=== PATIENT | female | born 1945 | race Hispanic/Latino ===

== ENCOUNTER 2018-01-20 21:29 | Emergency (ER) | payer OTHER, SELFPAY ==
[2018-01-20 21:36] VITALS: BP 149/85; PULSE 109; RESP 18; TEMP 36.7; O2SAT 95; BMI 39.0
--- NOTE | 2018-01-20 21:41 | PC.NURSE ---
She had hemorrhoidectomy on the 5th of this month.She c/o pain and drainage at site.pain not relieved by her po oxycodone she was scipted.
--- NOTE | 2018-01-20 22:11 | DI.CT.S_ITS ---
PROCEDURE: CT ABDOMEN PELVIS W CON INDICATIONS: hemorroidectomy 6 days ago, pus and pain in lower abd/rectal area TECHNIQUE: After the administration of intravenous contrast, 5 mm thick sections acquired from the diaphragm to the symphysis. 5 mm coronal and sagittal reformats were acquired. For radiation dose reduction, the following was used: automated exposure control, adjustment of mA and/or kV according to patient size. COMPARISON: [facility], CT, ABDOMEN/PELVIS WITH CONTRAST, 03/02/2016, 1:17. FINDINGS: Image quality: Excellent. ABDOMEN: Lung bases: Dependent atelectasis are noted in posterior aspect of bilateral lung bases. Heart size is normal. Solid organs: Liver is normal in size. Ill-defined 1.5 cm hypodense area involving superior aspect of left hepatic lobe near the dome of liver is seen. 1 cm well-circumscribed hypodense area involving more inferior aspect of right hepatic lobe is also noted. There is also a 7 mm hypodense area involving inferior aspect of posterior segment right hepatic lobe and is too small to characterize. Gallbladder is surgically absent. Biliary system is non dilated. Pancreas enhances normally. Spleen is normal in size and enhancement. No discrete right adrenal nodule. Nodular thickening of left adrenal gland is seen with suggestion of left adrenal nodules measures up to 1.2 cm in size. Kidneys demonstrate normal size and enhancement, without hydronephrosis. 1.7 cm left renal cyst is seen. Peritoneum and bowel: Bowel loops demonstrate normal wall thickness and caliber. No free fluid is seen. Extraluminal air is within mesenteric fat in the lower pelvis extending along the sigmoid colon and pre-sacral space with air extending to the mesenteric fat in lower abdomen. Nodes and vessels: No retroperitoneal or mesenteric adenopathy by size criteria. Aorta and inferior vena cava are normal in size. Miscellaneous: Small periumbilical hernia containing fat only is seen. PELVIS: Genitourinary: Bladder wall thickness is normal. Miscellaneous: No inguinal hernias or adenopathy. Bones: No suspicious bony lesions. No vertebral body compression fractures. IMPRESSION: 1. Extraperitoneal fat within lower abdomen and pelvis as described above, which may represent iatrogenic air from recent pelvic surgery. Perforated bowel loop cannot be entirely excluded. No peritoneal free fluid or abscess collection is noted. No abnormal bowel wall thickening. 2. 1.5 cm ill-defined hypodense area involving superior aspect of left hepatic lobe near dome of liver and is not consistent with a simple cyst. This could represent hemangioma. Dedicated MRI or CT of the abdomen using hepatic protocol can be done for further evaluation of this region. Additional small areas of hypodensity in right and left hepatic lobes and likely represent hepatic cysts. 3. Nodular thickening of left adrenal gland, which may represent adrenal adenoma. 4. Bibasilar dependent atelectasis. No significant discrepancies from overnight report. Dictated by: Jorge Lemon M.D. on 01/21/2018 at 8:11 Approved by: Jorge Lemon M.D. on 01/21/2018 at 8:20
--- NOTE | 2018-01-20 22:14 | ED_ITS ---
HPI - Abdominal Pain General Chief Complaint: Skin/Abscess/Foreign Body Stated Complaint: PAIN, POSSIBLE INFECTION POST SURGERY Time Seen by Provider: 01/20/18 21:50 Source: patient and family Mode of arrival: ambulatory Limitations: no limitations History of Present Illness HPI narrative: This is a 72-year-old female who comes to the emergency department with complaint of increasing rectal pain as well as lower abdominal pain. Patient had a hemorrhoidectomy on the 14 of January at [place]. She was referred there by Dr. Franco our general surgeon. Patient states she has been having sort of brownish purulent discharge. She states she has had increasing pain rectally. She has had nausea but no vomiting. Her abdominal pain just started in the last couple days. She has been taking oxycodone orally for pain and it has not been controlling her pain in the last couple days. She has been having regular stools which have initially been small pebble like stools that a long thin yellowish stool followed by very liquidy yellow stool today. Patient has not had any new urinary symptoms. She had a temperature of a 100? F at home. She has been attempting to keep the area clean and applying ?pre veil?, she has been using a stool softener. Related Data Home Medications Medication Instructions Recorded Confirmed citalopram [Celexa] 40 mg PO Q DAY #0 03/01/16 felodipine 1 tab PO Q DAY #0 03/01/16 gabapentin [Neurontin] 900 mg PO TID #0 03/01/16 hydrochlorothiazide 25 mg PO Q DAY #0 03/01/16 insulin NPH and regular human 30 units SQ BIDAC #0 03/01/16 [Humulin 70/30 U-100 Insulin] lisinopril 20 mg PO Q DAY #0 03/01/16 pravastatin [Pravachol] 20 mg PO HS #0 03/01/16 VITAMIN D (Vitamin D3) 5,000 u PO QDAY #0 03/02/16 aripiprazole [Abilify] 5 mg PO HS #0 03/02/16 Previous Rx's Medication Instructions Recorded cephalexin 500 mg PO TID #12 cap 03/03/16 oxycodone 2.5 - 5 mg PO Q4HP PRN #20 tab 03/03/16 oxycodone 15 mg PO Q4-6H PRN #10 tab 01/21/18 Allergies Allergy/AdvReac Type Severity Reaction Status Date / Time diclofenac [DICLOFENAC] Allergy Severe HIVES & Verified 01/20/18 21:36 ALMOST TO THE POINT OF ANAPHYLACTIC SHOCK. morphine [MORPHINE] Allergy Severe CARDIAC Verified 01/20/18 21:36 ARREST PER PT acetaminophen [From TYLENOL] Allergy Unknown UNKNOWN Verified 01/20/18 21:36 REACTION BUT KNOWS SHE CANNOT TAKE ibuprofen [IBUPROFEN] Allergy Unknown HIVES Verified 01/20/18 21:36 misoprostol [MISOPROSTOL] Allergy Unknown UNKNOWN Verified 01/20/18 21:36 polyethylene glycol Allergy Unknown UNKNOWN Verified 01/20/18 21:36 [POLYETHYLENE GLYCOL] potassium chloride Allergy Unknown UNKNOWN Verified 01/20/18 21:36 [POTASSIUM CHLORIDE] sodium bicarbonate Allergy Unknown UNKNOWN Verified 01/20/18 21:36 [SODIUM BICARBONATE] sodium sulfate Allergy Unknown UNKNOWN Verified 01/20/18 21:36 [SODIUM SULFATE] Review of Systems Review of Systems All systems reviewed & are unremarkable except as noted in HPI and below Constitutional Reports fever(s) (One hundred F) Cardiovascular Denies chest pain, Denies irregular heart rhythm, Denies lightheadedness, Denies palpitations, Denies dyspnea, Denies dyspnea on exertion and Denies orthopnea Respiratory Denies cough, Denies dyspnea, Denies dyspnea on exertion and Denies wheezing Gastrointestinal Gastrointestinal: Reports abdominal pain, Denies melena, Denies hematochezia, Reports change in bowel habits, Reports diarrhea, Denies nausea and Denies vomiting Genitourinary Denies hematuria, Denies flank pain, Denies urinary incontinence and Denies urinary urgency Endocrine Denies palpitations Allergic/Immunologic Denies wheezing PFSH Medical History Dyslipidemia (Acute) H/O: hysterectomy (Acute) Hypertension (Acute) Insulin dependent diabetes mellitus (Acute) Surgical History H/O bilateral salpingo-oophorectomy (Acute) H/O hemorrhoidectomy (Acute) Social History Smoking Status: Never smoker Exam Narrative Exam Narrative: GENERAL: Alert and oriented x three, obese, well-appearing female in mild distress. HEENT: Head normocephalic, atraumatic, EOMI, pupils reactive, face symmetric, moist mucous membranes NECK: Supple, full range of motion CARDIOVASCULAR: Regular rate and rhythm without murmurs, rubs or gallops. RESPIRATORY: Breath sounds equal bilaterally, no wheezes rales or rhonchi. ABDOMEN: Soft, mild to moderate suprapubic as well as periumbilical tenderness. Normoactive bowel sounds all 4 quadrants. No guarding or rebound, rigidity, no mass. On rectal examination. Patient has tenderness even with movement or spreading of the buttocks at the gluteal crease. Patient has amount of light brownish discharge. There is no clear signs of abscess or fluctuant fluid collection adjacent to or at the rectum. Patient's rectum does appears to be healing with what appears to be a recent surgical site. : No CVA tenderness EXTREMITIES: Normal range of motion, no clubbing or edema. Neurovascularly intact NEUROLOGICAL: Cranial nerves II through XII grossly intact. Moving all extremities SKIN: Warm, dry, no petechiae, no rashes or lesions. Initial Vital Signs Initial Vital Signs: Vital Signs Temperature 98.0 F 01/20/18 21:36 Pulse Rate 109 H 01/20/18 21:36 Respiratory Rate 18 01/20/18 21:36 Blood Pressure 149/85 H 01/20/18 21:36 Pulse Oximetry 95 01/20/18 21:36 Course Orders Ordered: ED Orders 01/20/18 22:11 CT abdomen pelvis w con Stat 01/20/18 22:33 Blood Culture Stat 01/20/18 22:35 Complete Blood Count AUTO DIFF Stat Comprehensive Metabolic Panel Stat Lactate (Lactic Acid) Stat Lipase Stat Partial Thromboplastin Time Stat Prothrombin Time INR Stat Discontinued Medications Sodium Chloride (Normal Saline 0.9%) 1,000 mls @ 150 mls/hr IV CONT KEVIN Last Infusion: 01/21/18 00:54 Dose: 0 mls/hr Admin: 01/20/18 22:40 Dose: 150 mls/hr Lidocaine (Lidocaine Oint) 1 applic TOP NOW ONE Stop: 01/20/18 22:14 Last Admin: 01/20/18 22:46 Dose: 1 applic Oxycodone HCl (Percolone) 15 mg PO NOW ONE Stop: 01/20/18 22:13 Last Admin: 01/20/18 22:40 Dose: 15 mg Reevaluation(s) Reevaluation #1: Discussed all lab work, CT findings and recommendations from general surgery. Patient on repeat evaluation is still fairly comfortable. The slight increase in her oxycodone from 10-50 mg on an topical lidocaine was very helpful to the patient. We discussed she does have air on her CT which is not necessarily normal finding with this particular surgery and which was discussed with her surgical team. They would like to see her today in the office and her and her are agreeable to this. They will call 1st thing in morning I to set up an exact time. They are also given his disc as well as a copy of lab work. We discussed Um that because there is air on her CT scan this is somewhat concerning and does need close follow-up. No signs on physical exam of acute abdomen there is some possibility that this could just be postsurgical. She does not appear to have any sepsis although blood cultures were obtained. Time: 01:05 Consultations Consultation #1: Dr. Aguillon from [facility] surgery. Discussed findings along with free air on CT. Discussed that this not typically an expected finding. He asked that we have images sent to them or patient with a disc. We discussed patient's lab work which does show a slight elevation in white count as well as slight left shift. Patient does not have an acute abdomen on exam. She is much more comfortable now after and slight increase in her medication as well as topical lidocaine. Plan for follow up tomorrow in the office with Dr. Molina for closer observation. Patient is to call 1st thing in the morning. We did discuss the patient should be started on antibiotics Um they asked that we hold this time to see her tomorrow in the make the final decision. Time: 00:48 Vital Signs - 8 hr 01/20/18 21:36 01/21/18 00:55 Temperature 98.0 F 98.5 F Pulse Rate 109 H 96 H Respiratory Rate 18 Blood Pressure 149/85 H 124/62 Pulse Oximetry 95 MDM - Abdominal Pain Lab Data Attestation: I reviewed the patient's lab results. Result diagrams: 01/20/18 22:35 01/20/18 22:35 Lab Results 01/20/18 01/20/18 01/20/18 Range/Units 22:35 22:35 22:35 WBC 13.1 H (4.5-11.0) X10^3/uL RBC 4.28 (4.0-5.2) X10^6/uL Hgb 12.6 (12.0-16.0) g/dL Hct 38.0 (36-46) % MCV 88.7 (80-100) fL MCH 29.4 (26-34) PG MCHC 33.2 (30-36) % RDW 15.2 H (11.6-14.8) % Plt Count 348 (150-400) X10^3/uL Neut % (Auto) 78.1 H (50-75) % Lymph % (Auto) 11.2 L (25-40) % [place] % (Auto) 8.9 (3-14) % Eos % (Auto) 1.4 L (2-4) % Baso % (Auto) 0.4 (0-2) % Neut # (Auto) 10162 H (0135-5871) /uL PT 11.3 (10.1-12.7) SECONDS INR 1.0 (0.9-1.3) APTT 24 L (26.4-36.2) SECONDS Sodium 138 (137-145) mmol/L Potassium 3.9 (3.4-5.1) mmol/L Chloride 97 L (98-107) mmol/L Carbon Dioxide 35 H (22-32) mmol/L BUN 22 H (7-17) mg/dL Creatinine 0.80 (0.52-1.04) mg/dL Estimated GFR > 60.0 (>60) mL/min BUN/Creatinine Ratio 27.5 H (6-22) Glucose 78 L (80-110) mg/dL Lactate (0.7-2.1) mmol/L Calcium 9.1 (8.4-10.2) mg/dL Total Bilirubin 0.2 (0.2-1.3) mg/dL AST 21 (14-36) IU/L ALT 32 (9-52) IU/L Alkaline Phosphatase 68 (38-126) U/L Total Protein 6.8 (6.3-8.2) g/dL Albumin 3.7 (3.5-5.0) g/dL Globulin 3.1 (1.7-4.1) g/dL Albumin/Globulin Ratio 1.2 (1.0-2.8) Lipase 24 (23-300) U/L //18 Range/Units 22:35 WBC (4.5-11.0) X10^3/uL RBC (4.0-5.2) X10^6/uL Hgb (12.0-16.0) g/dL Hct (36-46) % MCV (80-100) fL MCH (26-34) PG MCHC (30-36) % RDW (11.6-14.8) % Plt Count (150-400) X10^3/uL Neut % (Auto) (50-75) % Lymph % (Auto) (25-40) % [place] % (Auto) (3-14) % Eos % (Auto) (2-4) % Baso % (Auto) (0-2) % Neut # (Auto) (4586-7383) /uL PT (10.1-12.7) SECONDS INR (0.9-1.3) APTT (26.4-36.2) SECONDS Sodium (137-145) mmol/L Potassium (3.4-5.1) mmol/L Chloride (98-107) mmol/L Carbon Dioxide (22-32) mmol/L BUN (7-17) mg/dL Creatinine (0.52-1.04) mg/dL Estimated GFR (>60) mL/min BUN/Creatinine Ratio (6-22) Glucose (80-110) mg/dL Lactate 1.0 (0.7-2.1) mmol/L Calcium (8.4-10.2) mg/dL Total Bilirubin (0.2-1.3) mg/dL AST (14-36) IU/L ALT (9-52) IU/L Alkaline Phosphatase (38-126) U/L Total Protein (6.3-8.2) g/dL Albumin (3.5-5.0) g/dL Globulin (1.7-4.1) g/dL Albumin/Globulin Ratio (1.0-2.8) Lipase (23-300) U/L Imaging Data CT scan - abdomen: Radiologist's impression: 11.6 mm low attenuation structures within left lobe liver which is going to require additional workup to exclude an underlying neoplasm. There are multiple cysts within the liver. Patient demonstrates air in the extraperitoneal fat in the pelvis and extending into the marriage mesenteric fat most likely from recent surgery but could not exclude the possibility of a leak there are however no fluid collections or abscess. Discharge Plan Departure Patient Disposition: Home Clinical Impression: Abdominal pain, Anal or rectal pain, Hepatic lesion Discharge Date/Time: 01/21/18 01:20 Interventions: ED Discharge Assessment Last Done: 01/21/18 00:55 Activity Restrictions/Additional Instructions: Call your surgeon's office 1st thing in the morning to set up follow-up today. Let the office know that Dr. Lemons would like he seen today. Take disc with your images with you. Her imaging does show air in the abdomen which requires further follow-up. There is also a structure in the left lobe of the liver which they will wish to follow up. You may increase your oxycodone to 15 mg total for each dose on your regular schedule. You may use topical lidocaine to the rectal area after bowel movements. Return to the emergency department for temperature greater than 100.4 F, increasing abdominal pain, vomiting, black or bloody stools or other new or concerning symptoms. Prescriptions: New oxycodone 15 mg tablet 15 mg PO Q4-6H PRN (Reason: pain) Qty: 10 RF: 0 No Action citalopram [Celexa] 40 MG tablet 40 mg PO Q DAY Qty: 0 RF: 0 felodipine 10 MG tablet extended release 24 hr 1 tab PO Q DAY Qty: 0 RF: 0 gabapentin [Neurontin] 300 MG capsule 900 mg PO TID Qty: 0 RF: 0 insulin NPH and regular human [Humulin 70/30 U-100 Insulin] 100 UNIT/1 ML suspension 30 units SQ BIDAC Qty: 0 RF: 0 lisinopril 20 MG tablet 20 mg PO Q DAY Qty: 0 RF: 0 hydrochlorothiazide 25 MG tablet 25 mg PO Q DAY Qty: 0 RF: 0 pravastatin [Pravachol] 20 MG tablet 20 mg PO HS Qty: 0 RF: 0 aripiprazole [Abilify] 5 MG tablet 5 mg PO HS Qty: 0 RF: 0 VITAMIN D (Vitamin D3) 5,000 u PO QDAY Qty: 0 RF: 0 cephalexin 250 MG capsule 500 mg PO TID Qty: 12 RF: 0 oxycodone 5 MG tablet 2.5 - 5 mg PO Q4HP PRNQty: 20 RF: 0 Referrals: Williams Bhatt MD [Non-Staff] - Debbie Napoles DO [Primary Care Provider] -
[2018-01-20] MEDS: SODIUM CHLORIDE 0.9% 1,000 ML 150 ML IV (22:40)
[2018-01-20] MEDS: OXYCODONE IR 5 MG TABLET 15 MG PO (22:40)
[2018-01-20] MEDS: LIDOCAINE 5% OINT 35 GM 1 APPLIC TOP (22:46)
[2018-01-20 22:52] LABS: Prothrombin Time 11.3 SECONDS (10.1-12.7)
[2018-01-20 22:54] LABS: PTT Partial Thromboplastin Tim 24 SECONDS (26.4-36.2)
[2018-01-20 22:56] LABS: Alanine Aminotransferase 32 IU/L (9-52); Albumin 3.7 g/dL (3.5-5.0); Albumin Globulin Ratio 1.2 (1.0-2.8); Alkaline Phosphatase 68 U/L (38-126); Aspartate Aminotransferase 21 IU/L (14-36); BUN Creatinine Ratio 27.5 (6-22); Bilirubin Total 0.2 mg/dL (0.2-1.3); Blood Urea Nitrogen 22 mg/dL (7-17); Calcium 9.1 mg/dL (8.4-10.2); Carbon Dioxide 35 mmol/L (22-32); Chloride 97 mmol/L (98-107); Estimated Glomerular Filt Rate > 60.0 mL/min (>60); Globulin 3.1 g/dL (1.7-4.1); Glucose 78 mg/dL (80-110); HEMOLYSIS < 15 (0-50); Lipase 24 U/L (23-300); Potassium 3.9 mmol/L (3.4-5.1); Sodium 138 mmol/L (137-145); Total Protein 6.8 g/dL (6.3-8.2)
[2018-01-20 22:57] LABS: Add Manual Diff / Slide Review NO; Basophils Percent Auto 0.4 % (0-2); Eosinophils Percent Auto 1.4 % (2-4); Hemoglobin 12.6 g/dL (12.0-16.0); Lymphocytes Percent Auto 11.2 % (25-40); Mean Corpuscular HGB Conc 33.2 % (30-36); Mean Corpuscular Hemoglobin 29.4 PG (26-34); Mean Corpuscular Volume 88.7 fL (80-100); Monocytes Percent Auto 8.9 % (3-14); Neutrophils Absolute Auto 10200 /uL (3000-5900); Neutrophils Percent Auto 78.1 % (50-75); Platelet Count 348 X10^3/uL (150-400); Red Blood Cell Count 4.28 X10^6/uL (4.0-5.2); Red Cell Distribution Width 15.2 % (11.6-14.8); White Blood Cell Count 13.1 X10^3/uL (4.5-11.0)
[2018-01-21 00:55] VITALS: BP 124/62; PULSE 96; TEMP 36.9
== END 2018-01-21 01:20 | disposition home or self-care (01) ==
LOC: ED 21:39 → AC 23:01 → ED 01-21 01:03
PROVIDERS: Emergency Provider Emergency Medicine; Family Provider Family Medicine; PCP Family Medicine
DX: K62.89 Other specified diseases of anus and rectum (principal); R10.9 Unspecified abdominal pain; K76.9 Liver disease, unspecified
CPT/HCPCS: 36415; 36591; 74177; 80053; 83605; 83690; 85025; 85610; 85730; 87040; 96360; 96361; 99283; 99285; Q9967

== ENCOUNTER 2018-03-11 11:05 | Emergency (ER) | payer OTHER, SELFPAY ==
[2018-03-11 11:11] VITALS: BP 112/65; PULSE 97; RESP 20; TEMP 36.1; O2SAT 96; BMI 39.0
[2018-03-11 12:00] VITALS: BP 115/58; PULSE 92; O2SAT 100
--- NOTE | 2018-03-11 12:33 | DI.CT.S_ITS ---
PROCEDURE: CT ABDOMEN PELVIS WO CON INDICATIONS: left lower quadrant pain TECHNIQUE: Noncontrast 5 mm thick sections acquired from the diaphragms to the symphysis. 5 mm coronal and sagittal reformats were then performed. For radiation dose reduction, the following was used: automated exposure control, adjustment of mA and/or kV according to patient size. COMPARISON: [facility], CT, ABDOMEN/PELVIS WITH CONTRAST, 03/02/2016, 1:17. [facility], CT, CT ABDOMEN PELVIS W CON, 01/20/2018, 22:55. FINDINGS: Image quality: Somewhat degraded by very large body habitus. No intravenous or oral contrast. ABDOMEN: Lung bases: Lung bases are clear. Heart size is normal. Solid organs: Liver is normal in size at the superior margin of the left hepatic lobe anteriorly there is a hypodensity that is subtle, but was present in February 2016 and on contrast enhanced study from 01/20/18. The appearance is stable over time and presumably a hemangioma. Several other hepatic hypodensities are stable over time, measuring less than 1 cm, and consistent with hepatic cysts or small hemangiomas. Gallbladder is surgically absent. Pancreas is normal in contours. Spleen is normal in size. No adrenal nodules. Kidneys are normal in size, without hydronephrosis or nephrolithiasis. Peritoneum and bowel: Unenhanced bowel loops demonstrate normal wall thickness and caliber. No free fluid or air. Nodes and vessels: No retroperitoneal or mesenteric adenopathy by size criteria. Aorta and inferior vena cava are normal in caliber. Miscellaneous: No ventral hernias. PELVIS: Genitourinary: Bladder wall thickness is normal. Presumed prior hysterectomy. Miscellaneous: No inguinal hernias or adenopathy. Mild diverticulosis, no diverticulitis, normal appendix found right lower quadrant. Bones: No suspicious bony lesions. No vertebral body compression fractures. IMPRESSION: Several scattered hepatic hemangiomas, no source of left lower quadrant pain is found. Normal appendix seen, mild diverticulosis without acute diverticulitis. Dictated by: Ananth Barrientos M.D. on 03/11/2018 at 14:06 Approved by: Ananth Barrientos M.D. on 03/11/2018 at 14:10
[2018-03-11 12:42] LABS: Add Manual Diff / Slide Review NO; Basophils Percent Auto 0.6 % (0-2); Eosinophils Percent Auto 0.6 % (2-4); Hematocrit 41.1 % (36-46); Hemoglobin 13.9 g/dL (12.0-16.0); Lymphocytes Percent Auto 13.7 % (25-40); Mean Corpuscular HGB Conc 33.9 % (30-36); Mean Corpuscular Hemoglobin 30.4 PG (26-34); Mean Corpuscular Volume 89.5 fL (80-100); Monocytes Percent Auto 5.8 % (3-14); Neutrophils Absolute Auto 9700 /uL (3000-5900); Neutrophils Percent Auto 79.3 % (50-75); Platelet Count 348 X10^3/uL (150-400); Red Blood Cell Count 4.59 X10^6/uL (4.0-5.2); Red Cell Distribution Width 15.2 % (11.6-14.8); White Blood Cell Count 12.3 X10^3/uL (4.5-11.0)
--- NOTE | 2018-03-11 12:49 | ED_ITS ---
HPI - Fever <Zeke ThaoLUAN - Last Filed: 03/11/18 22:06> General Chief Complaint: Fever Stated Complaint: SENT BY MD FOR CT Time Seen by Provider: 03/11/18 12:09 Source: patient Mode of arrival: ambulatory Limitations: no limitations History of Present Illness HPI Narrative: 72-year-old female with history of hypertension and diabetes that is a nonsmoker here for complaint of having had tenderness to her lower abdomen bilaterally worse on the left over the past 6 weeks. She states that she had a a procedure for hemorrhoid removal approximately 6 weeks ago. She reports that afterwards was noticed that she had an infection to her rectal area. She was treated by the surgeon for rectal infection with antibiotics. She states that she completed those antibiotics the 1st week of February. she reports that she still is having discomfort. She also reports that she has seen some purulent drainage from her rectal area when she was wiping after a bowel movement. She states she was sent here by the surgeon for having CT to rule out complications. She denies any fevers. she reports that she has had an increased white count over the past several weeks. Positive p.o. intake. No nausea or vomiting. Related Data Home Medications Medication Instructions Recorded Confirmed felodipine 1 tab PO DAILY #0 03/01/16 03/11/18 hydrochlorothiazide 25 mg PO DAILY #0 03/01/16 03/11/18 pravastatin [Pravachol] 20 mg PO BEDTIME #0 03/01/16 03/11/18 Humalog KwikPen Insulin 1 dose SUBCUT DIRECTED 03/11/18 03/11/18 albuterol sulfate [ProAir HFA] 2 puff INHALATION Q4H PRN 03/11/18 03/11/18 docusate sodium 250 mg PO DAILY 03/11/18 03/11/18 duloxetine 60 mg PO DAILY 03/11/18 03/11/18 flash glucose sensor [FreeStyle 03/11/18 03/11/18 Alana 10 Day Sensor] insulin NPH isoph U-100 human 28 units SUBCUT BID 03/11/18 03/11/18 [Humulin N NPH Insulin KwikPen] insulin lispro See Label Instructions .ROUTE 03/11/18 03/11/18 .COMPLEX isosorbide mononitrate 120 mg PO QAM 03/11/18 03/11/18 lisinopril 20 mg PO BID 03/11/18 03/11/18 oxycodone 5 mg PO Q4HP PRN 03/11/18 03/11/18 Previous Rx's Medication Instructions Recorded oxycodone 15 mg PO Q4-6H PRN #10 tab 01/21/18 Allergies Allergy/AdvReac Type Severity Reaction Status Date / Time diclofenac [DICLOFENAC] Allergy Severe HIVES & Verified 01/20/18 21:36 ALMOST TO THE POINT OF ANAPHYLACTIC SHOCK. morphine [MORPHINE] Allergy Severe CARDIAC Verified 01/20/18 21:36 ARREST PER PT acetaminophen [From TYLENOL] Allergy Unknown UNKNOWN Verified 01/20/18 21:36 REACTION BUT KNOWS SHE CANNOT TAKE ibuprofen [IBUPROFEN] Allergy Unknown HIVES Verified 01/20/18 21:36 misoprostol [MISOPROSTOL] Allergy Unknown UNKNOWN Verified 01/20/18 21:36 polyethylene glycol Allergy Unknown UNKNOWN Verified 01/20/18 21:36 [POLYETHYLENE GLYCOL] potassium chloride Allergy Unknown UNKNOWN Verified 01/20/18 21:36 [POTASSIUM CHLORIDE] sodium bicarbonate Allergy Unknown UNKNOWN Verified 01/20/18 21:36 [SODIUM BICARBONATE] sodium sulfate Allergy Unknown UNKNOWN Verified 01/20/18 21:36 [SODIUM SULFATE] Review of Systems <LUAN Brooks - Last Filed: 03/11/18 22:06> Constitutional Denies chills, Denies fever(s), Denies lethargy and Denies weakness Eyes Denies change in vision, Denies eye discharge, Denies irritation and Denies loss of vision ENT Ears, Nose, Mouth, and Throat: Denies change in voice, Denies neck pain, Denies sore throat and Denies throat swelling Cardiovascular Denies chest pain, Denies irregular heart rhythm, Denies lightheadedness, Denies palpitations and Denies orthopnea Respiratory Denies wheezing Gastrointestinal Gastrointestinal: Reports abdominal pain Genitourinary Denies hematuria, Denies flank pain, Denies urinary incontinence and Denies urinary urgency Musculoskeletal Denies neck pain Integumentary/Breasts Denies pruritus, Denies erythema, Denies rash and Denies wounds Neurologic Denies confusion, Denies loss of vision and Denies weakness Psychiatric Denies anxiety, Denies confusion, Denies depression, Denies homicidal ideation and Denies suicidal ideation Endocrine Denies palpitations Hematologic/Lymphatic Denies easy bruising Allergic/Immunologic Denies urticaria, Denies throat swelling and Denies wheezing Exam <LUAN Brooks - Last Filed: 03/11/18 22:06> Initial Vital Signs Initial Vital Signs: Vital Signs Temperature 96.9 F L 03/11/18 11:11 Pulse Rate 97 H 03/11/18 11:11 Respiratory Rate 20 03/11/18 11:11 Blood Pressure 112/65 03/11/18 11:11 Pulse Oximetry 96 03/11/18 11:11 Const General: cooperative and well developed Nutritional Appearance: well nourished Orientation: alert, awake, oriented x3 and not confused [facility] Mouth: oral mucosae normal and moist mucous membranes Eyes Conjunctivae: conjunctivae normal Sclera: sclerae normal Pupils: PERRL EOM: EOM intact bilaterally Resp Effort & Inspection: normal respiratory effort, able to speak in complete sentences, no respiratory distress and no use of accessory muscles Auscultation: clear to auscultation bilaterally, no rales, no rhonchi and no wheezes Cardio Rate: regular rate Rhythm: regular rhythm Heart Sounds: no click, no gallops, no murmurs and no rubs Pulses: normal peripheral pulses GI Rectal Exam: visual inspection normal, normal sphincter tone and other ( Tenderness to the rectal and anal area) Other: Tenderness on palpation to the left lower quadrant and right lower quadrant. General: No CVA tenderness Skin General: no rashes or lesions noted, No jaundice and No petechiae Neuro General: alert, oriented x3, gait normal and no focal motor deficits Speech: speech normal <Rina Ferreira DO - Last Filed: 03/12/18 16:36> Initial Vital Signs Initial Vital Signs: Vital Signs Temperature 96.9 F L 03/11/18 11:11 Pulse Rate 97 H 03/11/18 11:11 Respiratory Rate 20 03/11/18 11:11 Blood Pressure 112/65 03/11/18 11:11 Pulse Oximetry 96 03/11/18 11:11 Course <LUAN Brooks - Last Filed: 03/11/18 22:06> Orders Ordered: Discontinued Medications Sodium Chloride (Normal Saline 0.9%) 1,000 mls @ 150 mls/hr IV CONT KEVIN Last Infusion: 03/11/18 15:28 Dose: 0 mls/hr Admin: 03/11/18 13:06 Dose: 150 mls/hr Vital Signs - 8 hr 03/11/18 15:29 Pulse Rate 90 Respiratory Rate 15 Blood Pressure 119/57 L Pulse Oximetry 97 <Rina Ferreira DO - Last Filed: 03/12/18 16:36> Orders Ordered: Discontinued Medications Sodium Chloride (Normal Saline 0.9%) 1,000 mls @ 150 mls/hr IV CONT KEVIN Last Infusion: 03/11/18 15:28 Dose: 0 mls/hr Admin: 03/11/18 13:06 Dose: 150 mls/hr Vital Signs - 8 hr 03/11/18 15:29 Pulse Rate 90 Respiratory Rate 15 Blood Pressure 119/57 L Pulse Oximetry 97 MDM - Fever <LUAN Brooks - Last Filed: 03/11/18 22:06> Lab Data Result diagrams: 03/11/18 11:30 03/11/18 11:30 Lab Results 03/11/18 03/11/18 03/11/18 Range/Units 11:30 11:30 11:30 WBC 12.3 H (4.5-11.0) X10^3/uL RBC 4.59 (4.0-5.2) X10^6/uL Hgb 13.9 (12.0-16.0) g/dL Hct 41.1 (36-46) % MCV 89.5 (80-100) fL MCH 30.4 (26-34) PG MCHC 33.9 (30-36) % RDW 15.2 H (11.6-14.8) % Plt Count 348 (150-400) X10^3/uL Neut % (Auto) 79.3 H (50-75) % Lymph % (Auto) 13.7 L (25-40) % Blair % (Auto) 5.8 (3-14) % Eos % (Auto) 0.6 L (2-4) % Baso % (Auto) 0.6 (0-2) % Neut # (Auto) 9700 H (8135-9411) /uL Sodium 143 (137-145) mmol/L Potassium 3.6 (3.4-5.1) mmol/L Chloride 98 (98-107) mmol/L Carbon Dioxide 31 (22-32) mmol/L BUN 27 H (7-17) mg/dL Creatinine 0.90 (0.52-1.04) mg/dL Estimated GFR > 60.0 (>60) mL/min BUN/Creatinine Ratio 30.0 H (6-22) Glucose 160 H (80-110) mg/dL Calcium 9.7 (8.4-10.2) mg/dL Total Bilirubin 0.4 (0.2-1.3) mg/dL AST 44 H (14-36) IU/L ALT 26 (9-52) IU/L Alkaline Phosphatase 85 (38-126) U/L Total Protein 7.6 (6.3-8.2) g/dL Albumin 4.2 (3.5-5.0) g/dL Globulin 3.4 (1.7-4.1) g/dL Albumin/Globulin Ratio 1.2 (1.0-2.8) Lipase 105 (23-300) U/L Procalcitonin < 0.05 (<0.5) ng/mL Point of Care Testing Glucose POC 145 Urine Dip Bedside Urine Glucose Negative Bedside Urine Bilirubin - Negative Bedside Urine Ketone - Negative Urine Specific [place] 1.020 Bedside Urine Occult Blood - Negative Bedside Urine pH 6.0 Bedside Urine Protein - Negative Bedside Urine Urobilinogen - Negative Bedside Urine Nitrite - Negative Bedside Urine Leukocytes - Negative Esterase Imaging Data CT scan - abdomen: Radiologist's impression: [place] [address] CT Scan Report Signed Patient: Emilee Lundberg CMR#: [id number] : 8Acct:[id number] Age/Sex: 72 / FDate of Service: 03/11/18 Loc: ED Accession Number: [id number] Procedure: CT abdomen pelvis wo con Ordering Provider: Zeke Thao PROCEDURE: CT ABDOMEN PELVIS WO CON INDICATIONS: left lower quadrant pain TECHNIQUE: Noncontrast 5 mm thick sections acquired from the diaphragms to the symphysis. 5 mm coronal and sagittal reformats were then performed. For radiation dose reduction, the following was used: automated exposure control, adjustment of mA and/or kV according to patient size. COMPARISON: [facility], CT, ABDOMEN/PELVIS WITH CONTRAST, 03/02/2016, 1: 17. [facility], CT, CT ABDOMEN PELVIS W CON, 01/20/2018, 22:55. FINDINGS: Image quality: Somewhat degraded by very large body habitus. No intravenous or oral contrast. ABDOMEN: Lung bases: Lung bases are clear. Heart size is normal. Solid organs: Liver is normal in size at the superior margin of the left hepatic lobe anteriorly there is a hypodensity that is subtle, but was present in February 2016 and on contrast enhanced study from 01/20/18. The appearance is stable over time and presumably a hemangioma. Several other hepatic hypodensities are stable over time, measuring less than 1 cm, and consistent with hepatic cysts or small hemangiomas. Gallbladder is surgically absent. Pancreas is normal in contours. Spleen is normal in size. No adrenal nodules. Kidneys are normal in size, without hydronephrosis or nephrolithiasis. Peritoneum and bowel: Unenhanced bowel loops demonstrate normal wall thickness and caliber. No free fluid or air. Nodes and vessels: No retroperitoneal or mesenteric adenopathy by size criteria. Aorta and inferior vena cava are normal in caliber. Miscellaneous: No ventral hernias. PELVIS: Genitourinary: Bladder wall thickness is normal. Presumed prior hysterectomy. Miscellaneous: No inguinal hernias or adenopathy. Mild diverticulosis, no diverticulitis, normal appendix found right lower quadrant. Bones: No suspicious bony lesions. No vertebral body compression fractures. IMPRESSION: Several scattered hepatic hemangiomas, no source of left lower quadrant pain is found. Normal appendix seen, mild diverticulosis without acute diverticulitis. Dictated by: Ananth Barrientos M.D. on 03/11/2018 at 14:06 Approved by: Ananth Barrientos M.D. on 03/11/2018 at 14:10 [facility] Narrative Medical decision making narrative: CBC shows elevated white count of 12.3 which has decreased over the past week from 13.9. She does have elevated neutrophils as well of 9700. CMP was obtained and shows glucose at 160 otherwise is unremarkable. Procalcitonin and lactate were obtained and were negative. Blood cultures were obtained and are pending. urinalysis was obtained was negative for urinary tract infection. Do not appreciate any infection on rectal exam. No emergent cause of her discomfort and her elevated white count is seen today in the emergency room. Discussed case with Dr. Narayan in her surgeon who will order MRI outpatient. And follow up with patient. For any worsening symptoms return to the emergency room. <Rina Ferreira, DO - Last Filed: 03/12/18 16:36> Lab Data Lab Results 03/11/18 03/11/18 03/11/18 Range/Units 11:30 11:30 11:30 WBC 12.3 H (4.5-11.0) X10^3/uL RBC 4.59 (4.0-5.2) X10^6/uL Hgb 13.9 (12.0-16.0) g/dL Hct 41.1 (36-46) % MCV 89.5 (80-100) fL MCH 30.4 (26-34) PG MCHC 33.9 (30-36) % RDW 15.2 H (11.6-14.8) % Plt Count 348 (150-400) X10^3/uL Neut % (Auto) 79.3 H (50-75) % Lymph % (Auto) 13.7 L (25-40) % Blair % (Auto) 5.8 (3-14) % Eos % (Auto) 0.6 L (2-4) % Baso % (Auto) 0.6 (0-2) % Neut # (Auto) 9700 H (6787-6810) /uL Sodium 143 (137-145) mmol/L Potassium 3.6 (3.4-5.1) mmol/L Chloride 98 (98-107) mmol/L Carbon Dioxide 31 (22-32) mmol/L BUN 27 H (7-17) mg/dL Creatinine 0.90 (0.52-1.04) mg/dL Estimated GFR > 60.0 (>60) mL/min BUN/Creatinine Ratio 30.0 H (6-22) Glucose 160 H (80-110) mg/dL Calcium 9.7 (8.4-10.2) mg/dL Total Bilirubin 0.4 (0.2-1.3) mg/dL AST 44 H (14-36) IU/L ALT 26 (9-52) IU/L Alkaline Phosphatase 85 (38-126) U/L Total Protein 7.6 (6.3-8.2) g/dL Albumin 4.2 (3.5-5.0) g/dL Globulin 3.4 (1.7-4.1) g/dL Albumin/Globulin Ratio 1.2 (1.0-2.8) Lipase 105 (23-300) U/L Procalcitonin < 0.05 (<0.5) ng/mL Point of Care Testing Glucose POC 145 Urine Dip Bedside Urine Glucose Negative Bedside Urine Bilirubin - Negative Bedside Urine Ketone - Negative Urine Specific [place] 1.020 Bedside Urine Occult Blood - Negative Bedside Urine pH 6.0 Bedside Urine Protein - Negative Bedside Urine Urobilinogen - Negative Bedside Urine Nitrite - Negative Bedside Urine Leukocytes - Negative Esterase Discharge Plan Departure Patient Disposition: Home Clinical Impression: Abdominal pain Discharge Date/Time: 03/11/18 15:29 Interventions: ED Discharge Assessment Last Done: 03/11/18 15:29 Instructions: DI for Abdominal Pain-Adult Activity Restrictions/Additional Instructions: CT of the abdomen was obtained was negative for any acute findings. Laboratory results today were unremarkable. No emergent cause of your discomfort or symptoms is seen today. Discussed case with Dr. Bhatt who will follow up with you. He will order a MRI for further evaluation. if any worsening symptoms return to the emergency room. Prescriptions: No Action felodipine 10 MG tablet extended release 24 hr 1 tab PO DAILY Qty: 0 RF: 0 hydrochlorothiazide 25 MG tablet 25 mg PO DAILY Qty: 0 RF: 0 pravastatin [Pravachol] 20 MG tablet 20 mg PO BEDTIME Qty: 0 RF: 0 flash glucose sensor [FreeStyle Alana 10 Day Sensor] kit RF: 0 insulin NPH isoph U-100 human [Humulin N NPH Insulin KwikPen] 100 unit/mL (3 mL) Insulin Pen 28 units subcut BID RF: 0 duloxetine 60 mg Capsule,Delayed Release(Dr/Ec) 60 mg PO DAILY RF: 0 Humalog KwikPen Insulin 1 dose subcut DIRECTED RF: 0 lisinopril 20 mg Tablet 20 mg PO BID RF: 0 isosorbide mononitrate 120 mg Tablet Extended Release 24 Hr 120 mg PO QAM RF: 0 insulin lispro 100 unit/mL Solution See Label Instructions .ROUTE .COMPLEX RF: 0 albuterol sulfate [ProAir HFA] 90 mcg/actuation Hfa Aerosol Inhaler 2 puff INHALATION Q4H PRN (Reason: Wheezing) RF: 0 docusate sodium 250 mg Capsule 250 mg PO DAILY RF: 0 oxycodone 5 MG tablet 5 mg PO Q4HP PRN (Reason: paib) RF: 0 oxycodone 15 mg tablet 15 mg PO Q4-6H PRN (Reason: pain) Qty: 10 RF: 0 Referrals: Debbie Napoles DO [Primary Care Provider] - <Rina Ferreira DO - Last Filed: 03/12/18 16:36> Cosign ED Attending Cosibanature Attestation: I was immediately available in the department for consultation. This documentation has been reviewed and I agree with assessment and plan. Supervised by Rina Ferreira DO
[2018-03-11 12:51] LABS: Alanine Aminotransferase 26 IU/L (9-52); Albumin 4.2 g/dL (3.5-5.0); Albumin Globulin Ratio 1.2 (1.0-2.8); Alkaline Phosphatase 85 U/L (38-126); Aspartate Aminotransferase 44 IU/L (14-36); Bilirubin Total 0.4 mg/dL (0.2-1.3); Blood Urea Nitrogen 27 mg/dL (7-17); Calcium 9.7 mg/dL (8.4-10.2); Carbon Dioxide 31 mmol/L (22-32); Chloride 98 mmol/L (98-107); Estimated Glomerular Filt Rate > 60.0 mL/min (>60); Globulin 3.4 g/dL (1.7-4.1); Glucose 160 mg/dL (80-110); HEMOLYSIS < 15 (0-50); Lipase 105 U/L (23-300); Potassium 3.6 mmol/L (3.4-5.1); Sodium 143 mmol/L (137-145); Total Protein 7.6 g/dL (6.3-8.2)
[2018-03-11 13:00] VITALS: BP 119/54; PULSE 89; O2SAT 94
[2018-03-11] MEDS: SODIUM CHLORIDE 0.9% 1,000 ML 150 ML IV (13:06)
[2018-03-11 14:00] VITALS: BP 115/55; PULSE 90; O2SAT 94
[2018-03-11 14:30] LABS: Procalcitonin < 0.05 ng/mL (<0.5)
[2018-03-11 15:29] VITALS: BP 119/57; PULSE 90; RESP 15; O2SAT 97
== END 2018-03-11 15:29 | disposition home or self-care (01) ==
PROVIDERS: Emergency Provider Nurse Practitioner Family; Family Provider Family Medicine; PCP Family Medicine
DX: R10.9 Unspecified abdominal pain (principal)
CPT/HCPCS: 36591; 74176; 74177; 80053; 81003; 82962; 83690; 84145; 85025; 96360; 96361; 99283; 99284; Q9967

== ENCOUNTER 2018-11-23 08:38 | Emergency (ER) | payer OTHER, SELFPAY ==
[2018-11-23 08:46] VITALS: BP 150/84; PULSE 102; RESP 22; TEMP 36.6; O2SAT 100; BMI 39.0
--- NOTE | 2018-11-23 09:12 | ED.FALL ---
HPI - Fall General Chief Complaint: Fall Stated Complaint: TOOK A FALL Time Seen by Provider: 11/23/18 08:57 Source: patient Mode of arrival: ambulatory Limitations: no limitations History of Present Illness HPI Narrative: Patient is 73-year-old female who presents after mechanical ground level fall this morning. He states she wears depends at night was quite soiled this morning she got up to the restroom when she also the restroom urine leaked onto the floor at which point she slipped and fell. She says she was flown backwards she landed mostly on her left side. He is complaining of neck pain and left hip pain. She denies head injury or loss of consciousness. She states that she is in chronic pain in allergic to multiple medications MD complaint: fall Onset (ago): minute(s) Fall from: standing Loss of consciousness: none Prolonged down time: no Symptoms prior to fall: none Context: tripped/slipped Related Data Home Medications Medication Instructions Recorded Confirmed felodipine 1 tab PO DAILY #0 03/01/16 11/23/18 hydrochlorothiazide 50 mg PO DAILY #0 03/01/16 11/23/18 pravastatin [Pravachol] 20 mg PO BEDTIME #0 03/01/16 11/23/18 docusate sodium 250 mg PO DAILY 03/11/18 03/11/18 duloxetine 60 mg PO DAILY 03/11/18 11/23/18 flash glucose sensor [FreeStyle 03/11/18 03/11/18 Alana 10 Day Sensor] insulin NPH isoph U-100 human 28 units SUBCUT BID 03/11/18 03/11/18 [Humulin N NPH Insulin KwikPen] insulin lispro See Rx Instructions .ROUTE .COMPLEX 03/11/18 03/11/18 insulin lispro [Humalog KwikPen 1 dose SUBCUT DIRECTED 03/11/18 03/11/18 Insulin] isosorbide mononitrate 120 mg PO QAM 03/11/18 11/23/18 lisinopril 20 mg PO BID 03/11/18 11/23/18 albuterol sulfate [Ventolin HFA] 2 puff INHALATION Q4H PRN 11/23/18 11/23/18 Allergies Allergy/AdvReac Type Severity Reaction Status Date / Time diclofenac [DICLOFENAC] Allergy Severe HIVES & Verified 11/23/18 08:46 ALMOST TO THE POINT OF ANAPHYLACTIC SHOCK. morphine [MORPHINE] Allergy Severe CARDIAC Verified 11/23/18 08:46 ARREST PER PT acetaminophen [From TYLENOL] Allergy Unknown UNKNOWN Verified 11/23/18 08:46 REACTION BUT KNOWS SHE CANNOT TAKE ibuprofen [IBUPROFEN] Allergy Unknown HIVES Verified 11/23/18 08:46 misoprostol [MISOPROSTOL] Allergy Unknown UNKNOWN Verified 11/23/18 08:46 polyethylene glycol Allergy Unknown UNKNOWN Verified 11/23/18 08:46 [POLYETHYLENE GLYCOL] potassium chloride Allergy Unknown UNKNOWN Verified 11/23/18 08:46 [POTASSIUM CHLORIDE] sodium bicarbonate Allergy Unknown UNKNOWN Verified 11/23/18 08:46 [SODIUM BICARBONATE] sodium sulfate Allergy Unknown UNKNOWN Verified 11/23/18 08:46 [SODIUM SULFATE] Review of Systems Review of Systems ROS Unobtainable: All systems reviewed & are unremarkable except as noted in HPI and below Constitutional Denies chills, Denies fever(s), Denies lethargy and Denies weakness Eyes Denies change in vision, Denies eye discharge, Denies irritation and Denies loss of vision ENT Ears, Nose, Mouth, and Throat: Denies change in voice, Reports neck pain and Denies sore throat Cardiovascular Denies chest pain, Denies irregular heart rhythm, Denies lightheadedness, Denies palpitations, Denies dyspnea, Denies dyspnea on exertion and Denies orthopnea Respiratory Denies cough, Denies dyspnea, Denies dyspnea on exertion and Denies wheezing Gastrointestinal Gastrointestinal: Denies abdominal pain, Denies change in bowel habits, Denies diarrhea, Denies nausea and Denies vomiting Musculoskeletal Reports as per HPI, Denies loss of height, Reports neck pain, Denies radiating pain into limb and Denies tingling Integumentary/Breasts Denies pruritus, Denies erythema, Denies rash and Denies wounds Neurologic Denies confusion, Denies loss of vision, Denies tingling and Denies weakness Psychiatric Denies anxiety, Denies confusion, Denies depression, Denies homicidal ideation and Denies suicidal ideation Endocrine Denies palpitations Allergic/Immunologic Denies wheezing Exam Initial Vital Signs Initial Vital Signs: Vital Signs Temperature 97.9 F 11/23/18 08:46 Pulse Rate 102 H 11/23/18 08:46 Respiratory Rate 22 11/23/18 08:46 Blood Pressure 150/84 H 11/23/18 08:46 Pulse Oximetry 100 11/23/18 08:46 GENERAL: Overweight well-appearing female and in no acute distress. HEENT: Head atraumatic,EOMI, pupils reactive, face symmetric NECK: Mild tenderness cervical collar placed CARDIOVASCULAR: Regular rate and rhythm without murmurs, rubs or gallops. RESPIRATORY: Breath sounds equal bilaterally, no wheezes rales or rhonchi. ABDOMEN: Soft, nontender. Normoactive bowel sounds all 4 quadrants. No guarding or rebound. EXTREMITIES: Normal range of motion, no clubbing or edema. Neurovascularly intact. Mild left hip pain but able to lift left like up able to lift right leg up without any difficulty NEUROLOGICAL: Alert and oriented x4.Normal gait and speech. Cranial nerves II through XII grossly intact. [facility] [employer] strength equal bilaterally SKIN: Warm, dry, no laceration, no petechiae, no rashes or lesions. [facility] Medical History Dyslipidemia (Acute) H/O: hysterectomy (Acute) Hypertension (Acute) Insulin dependent diabetes mellitus (Acute) Surgical History H/O bilateral salpingo-oophorectomy (Acute) H/O hemorrhoidectomy (Acute) Social History Smoking Status: Never smoker Social History Smoking Status: Never smoker Course Orders Ordered: ED Orders 11/23/18 09:13 CT cervical spine wo con Stat XR hip w pel if done LT 2V Stat Vital Signs - 8 hr 11/23/18 08:46 11/23/18 10:45 Temperature 97.9 F Pulse Rate 102 H 97 H Respiratory Rate 22 16 Blood Pressure 150/84 H 110/83 Pulse Oximetry 100 100 MDM - Fall Lab Data Point of Care Testing Glucose POC [address] cervical: Radiologist's impression: PROCEDURE: CT CERVICAL SPINE WO CON INDICATIONS: fall pain midline TECHNIQUE: Noncontrast 3 mm thick sections acquired from the skull base to the T4 level. Sagittal and coronal reformats were then constructed. For radiation dose reduction, the following was used: automated exposure control, adjustment of mA and/or kV according to patient size. COMPARISON: CR, SPINE CERVICAL 2 OR 3VW, 10/12/2012, 14:15. CT, C-SPINE W/O CONTRAST, 09/16/2012, 16:52. FINDINGS: Image quality: Excellent. Bones: No fractures or dislocations. Visualized superior ribs are intact. Prior anterior C4-C6 fusion, chronic degenerative changes in this area are stable over time with reference to prior plain film and CT scanning. Soft tissues: Prevertebral soft tissues are normal in thickness. No paravertebral hematomas. No apical pneumothoraces. IMPRESSION: Prior anterior cervical fusion from C4-C6, no sign of device loosening or disruption. No superimposed acute trauma found. Dictated by: Ananth Barrientos M.D. on 11/23/2018 at 9:53 hip left: Radiologist's impression: PROCEDURE: XR HIP W PEL IF DONE LT 2V INDICATIONS: fall pain TECHNIQUE: AP pelvis with lateral view(s) of the left hip(s). COMPARISON: None. FINDINGS: Bones: No fractures or dislocations. Pelvic ring appears intact. No suspicious bony lesions. Soft tissues: The visualized bowel gas pattern is normal. No suspicious soft tissue calcifications. IMPRESSION: Mild hip joint osteoarthritis bilaterally, symmetric. No trauma found. Dictated by: Ananth Barrientos M.D. on 11/23/2018 at 9:52 MDM Narrative Medical decision making narrative: Patient is in chronic pain allergic to multiple pain medications. She has been to pain management. This time there is no acute injury. We talked about how to prevent falls and wearing Monsel if she use. She understands and agrees. At this time no further workup. Discharge Plan Departure Patient Disposition: Home Clinical Impression: Acute pain of left hip Fall Qualifiers: Encounter type: initial encounter Qualified Code(s): W19.XXXA - Unspecified fall, initial encounter Discharge Date/Time: 11/23/18 10:46 Interventions: ED Discharge Assessment Last Done: 11/23/18 10:45 Instructions: How to Prevent Falls Activity Restrictions/Additional Instructions: *You have been diagnosed with fall, left hip pain *What to do: CT and x-ray are negative at this time. Increase activity as tolerated. Recommend that she talk with her PCP in regards to pain management *Continue to take medications as directed *Follow up with your primary care provider in 2-3 days *Return to ER if you should have increasing pain inability to walk weakness numbness or tingling or any new, worsening or concerning symptoms Prescriptions: No Action felodipine 10 MG tablet extended release 24 hr 1 tab PO DAILY Qty: 0 RF: 0 hydrochlorothiazide 25 MG tablet 50 mg PO DAILY Qty: 0 RF: 0 pravastatin [Pravachol] 20 MG tablet 20 mg PO BEDTIME Qty: 0 RF: 0 flash glucose sensor [FreeStyle Alana 10 Day Sensor] kit RF: 0 insulin lispro [Humalog KwikPen Insulin] 100 unit/mL Insulin Pen 1 dose subcut DIRECTED RF: 0 insulin NPH isoph U-100 human [Humulin N NPH Insulin KwikPen] 100 unit/mL (3 mL) Insulin Pen 28 units subcut BID RF: 0 duloxetine 60 mg Capsule,Delayed Release(Dr/Ec) 60 mg PO DAILY RF: 0 lisinopril 20 mg Tablet 20 mg PO BID RF: 0 isosorbide mononitrate 120 mg Tablet Extended Release 24 Hr 120 mg PO QAM RF: 0 insulin lispro 100 unit/mL Solution See Rx Instructions .ROUTE .COMPLEX RF: 0 docusate sodium 250 mg Capsule 250 mg PO DAILY RF: 0 albuterol sulfate [Ventolin HFA] 90 mcg/actuation Hfa Aerosol Inhaler 2 puff INHALATION Q4H PRN (Reason: Wheezing) RF: 0 Referrals: Debbie Napoles DO [Primary Care Provider] -
[2018-11-23 10:45] VITALS: BP 110/83; PULSE 97; RESP 16; O2SAT 100
== END 2018-11-23 10:46 | disposition home or self-care (01) ==
PROVIDERS: Emergency Provider Emergency Medicine; Family Provider Family Medicine; PCP Family Medicine
DX: M25.552 Pain in left hip (principal); W19.XXXA Unspecified fall, initial encounter
CPT/HCPCS: 72125; 73502; 82962; 99283

== ENCOUNTER 2021-03-10 18:27 | Emergency (ER) | payer OTHER, SELFPAY ==
[2021-03-10 18:45] VITALS: BP 142/66; PULSE 107; RESP 24; TEMP 36.8; O2SAT 97
--- NOTE | 2021-03-10 19:27 | DI.RAD.S_ITS ---
PROCEDURE: XR CHEST 1V INDICATIONS: suspected sepsis TECHNIQUE: One view of the chest was acquired. COMPARISON: None. FINDINGS: Surgical changes and devices: Cervical spine fixation hardware. Lungs and pleura: Lungs are clear. No pleural effusions or pneumothorax. Mediastinum: Mediastinal contours appear normal. Heart size is normal. Bones and chest wall: No suspicious bony lesions. Overlying soft tissues appear unremarkable. IMPRESSION: No acute cardiopulmonary disease process. Dictated by: Jayshree Swift MD, PhD on 03/10/2021 at 20:07 Approved by: Jayshree Swift MD, PhD on 03/10/2021 at 20:07
[2021-03-10 19:38] LABS: Add Manual Diff / Slide Review NO; Basophils Absolute Auto 100 /uL (0-100); Basophils Percent Auto 0.6 % (0-2); Eosinophils Absolute Auto 200 /uL (0-450); Eosinophils Percent Auto 2.5 % (2-4); Hemoglobin 12.6 g/dL (12.0-16.0); Lymphocytes Absolute Auto 1400 /uL (1100-4500); Lymphocytes Percent Auto 14.6 % (25-40); Mean Corpuscular HGB Conc 33.1 % (30-36); Mean Corpuscular Hemoglobin 30.4 PG (26-34); Monocytes Absolute Auto 800 /uL (0-900); Monocytes Percent Auto 8.2 % (3-14); Neutrophils Absolute Auto 7000 /uL (1500-7000); Neutrophils Percent Auto 74.1 % (50-75); Platelet Count 272 X10^3/uL (150-400); Red Blood Cell Count 4.13 X10^6/uL (4.0-5.2); Red Cell Distribution Width 15.7 % (11.6-14.8); White Blood Cell Count 9.5 X10^3/uL (4.5-11.0)
[2021-03-10 19:40] LABS: Lactate (Lactic Acid) 2.1 mmol/L (0.7-2.1)
[2021-03-10 19:41] LABS: Alanine Aminotransferase 29 IU/L (<35); Albumin 3.7 g/dL (3.5-5.0); Albumin Globulin Ratio 1.2 (1.0-2.8); Alkaline Phosphatase 64 U/L (38-126); Aspartate Aminotransferase 28 IU/L (14-36); BUN Creatinine Ratio 35.9 (6-22); Bilirubin Total 0.3 mg/dL (0.2-1.3); Blood Urea Nitrogen 23 mg/dL (7-17); Calcium 9.7 mg/dL (8.4-10.2); Carbon Dioxide 36 mmol/L (22-32); Chloride 100 mmol/L (98-107); Estimated Glomerular Filt Rate > 60.0 mL/min (>60); Glucose 163 mg/dL (80-110); HEMOLYSIS < 15 (0-50); Lipase 96 U/L (23-300); Potassium 4.1 mmol/L (3.4-5.1); Sodium 140 mmol/L (137-145); Total Protein 6.7 g/dL (6.3-8.2)
[2021-03-10 19:57] LABS: Procalcitonin 0.06 ng/mL (<0.5)
[2021-03-10 21:08] VITALS: PULSE 109; O2SAT 98
[2021-03-10 21:09] VITALS: BP 146/96; PULSE 109; O2SAT 99
[2021-03-10 21:30] VITALS: BP 156/72; PULSE 97; O2SAT 98
[2021-03-10 21:31] LABS: Reflexed Lactate in 2 Hours Y
[2021-03-10 22:00] VITALS: PULSE 99; O2SAT 98
[2021-03-10 22:02] LABS: Lactate 2HR (Lactic Acid Rflx) 1.1 mmol/L (0.7-2.1)
--- NOTE | 2021-03-10 22:12 | ED.SKABFB ---
HPI - Skin/Abscess/Foreign Bdy General Chief complaint: Skin/Abscess/Foreign Body Stated complaint: Left Leg Wound, Infection Time Seen by Provider: 03/10/21 22:10 Source: patient Mode of arrival: Wheelchair History of Present Illness HPI narrative: Patient is a 75 female history of diabetes chronic respiratory failure on 2 L of home O2 2 presenting with left leg lower extremity swelling and redness. She was prescribed Cipro and clindamycin from her primary care provider on March 03. This was after cultures returned from previously. She was told that she should expect improvement in 2 days. However she has had increased swelling increased redness heating she may have had fever. She overall states that it is not getting better. She is having some mild pain. She has no chest pain no shortness of breath or other symptoms Related Data Home Medications Medication Instructions Recorded Confirmed felodipine 10 mg tablet,extended 1 tab PO DAILY #0 03/01/16 11/23/18 release 24 hr hydrochlorothiazide 25 mg tablet 50 mg PO DAILY #0 03/01/16 11/23/18 pravastatin 20 mg tablet 20 mg PO BEDTIME #0 03/01/16 11/23/18 (Pravachol) docusate sodium 250 mg capsule 250 mg PO DAILY 03/11/18 03/11/18 duloxetine 60 mg capsule,delayed 60 mg PO DAILY 03/11/18 11/23/18 release flash glucose sensor 03/11/18 03/11/18 insulin NPH isoph U-100 human 100 28 units SUBCUT BID 03/11/18 03/11/18 unit/mL (3 mL) subcutaneous pen (Humulin N NPH U-100 Insulin KwikPen) insulin lispro 100 unit/mL 1 dose SUBCUT DIRECTED 03/11/18 03/11/18 subcutaneous pen (Humalog KwikPen (U-100) Insulin) insulin lispro 100 unit/mL See Rx Instructions .ROUTE .COMPLEX 03/11/18 03/11/18 subcutaneous solution isosorbide mononitrate 120 mg 120 mg PO QAM 03/11/18 11/23/18 tablet,extended release 24 hr lisinopril 20 mg tablet 20 mg PO BID 03/11/18 11/23/18 albuterol sulfate 90 mcg/actuation 2 puff INHALATION Q4H PRN 11/23/18 11/23/18 aerosol inhaler (Ventolin HFA) Previous Rx's Medication Instructions Recorded furosemide 20 mg tablet (Lasix) 20 mg PO DAILY #3 tab 03/10/21 Allergies Allergy/AdvReac Type Severity Reaction Status Date / Time diclofenac [DICLOFENAC] Allergy Severe HIVES & Verified 11/23/18 08:46 ALMOST TO THE POINT OF ANAPHYLACTIC SHOCK. morphine [MORPHINE] Allergy Severe CARDIAC Verified 11/23/18 08:46 ARREST PER PT acetaminophen [From TYLENOL] Allergy Unknown UNKNOWN Verified 11/23/18 08:46 REACTION BUT KNOWS SHE CANNOT TAKE ibuprofen [IBUPROFEN] Allergy Unknown HIVES Verified 11/23/18 08:46 misoprostol [MISOPROSTOL] Allergy Unknown UNKNOWN Verified 11/23/18 08:46 polyethylene glycol Allergy Unknown UNKNOWN Verified 11/23/18 08:46 [POLYETHYLENE GLYCOL] potassium chloride Allergy Unknown UNKNOWN Verified 11/23/18 08:46 [POTASSIUM CHLORIDE] sodium bicarbonate Allergy Unknown UNKNOWN Verified 11/23/18 08:46 [SODIUM BICARBONATE] sodium sulfate Allergy Unknown UNKNOWN Verified 11/23/18 08:46 [SODIUM SULFATE] Review of Systems Review of Systems Narrative: GENERAL: Denies chills,fever HEENT: Denies throat pain RESPIRATORY: Denies dyspnea, cough, wheezing CARDIOVASCULAR: Denies chest pain, palpitations GASTROINTESTINAL: Denies nausea, vomiting MUSCULOSKELETAL: Denies extremity pain, injury SKIN: See HPI NEUROLOGIC: Denies weakness, dizziness, headache, numbness 8 point review of systems is negative except for those stated above and HPI Patient History Medical History (Updated 03/10/21 @ 22:34 by Kimberlee Duenas DO) Dyslipidemia Hypertension Insulin dependent diabetes mellitus Surgical History H/O bilateral salpingo-oophorectomy H/O hemorrhoidectomy H/O: hysterectomy Social History Smoking Status: Never smoker Smoking Status: Never smoker alcohol intake frequency: 0-2 drinks per day Substance Use Type: does not use Exam Initial Vital Signs Initial Vital Signs: Vital Signs Temperature 98.3 F 03/10/21 18:45 Pulse Rate 107 H 03/10/21 18:45 Respiratory Rate 24 03/10/21 18:45 Blood Pressure 142/66 H 03/10/21 18:45 Pulse Oximetry 97 03/10/21 18:45 GENERAL: Well-appearing 75-year-old female HEENT: Head atraumatic,EOMI, pupils reactive, face symmetric, moist mucous membranes CARDIOVASCULAR: Regular rate and rhythm without murmurs, rubs or gallops. RESPIRATORY: Breath sounds equal bilaterally, no wheezes rales or rhonchi. EXTREMITIES: Normal range of motion, no clubbing. Pitting edema bilaterally Neurovascularly intact NEUROLOGICAL: Alert and oriented x4.Normal gait and speech. SKIN: Left leg open wound anterior chao 4.5 cm by 3 cm no gross discharge. Clear drainage bag fluid. Surrounding erythema noncircumferential does not extend more than 3 cm beyond the wound. She has another blister just superior and. Course Orders Ordered: ED Orders 03/10/21 22:25 Wound Culture and Gram Stain Stat Discontinued Medications Sodium Chloride (Normal Saline 0.9%) 1,000 mls @ 1,000 mls/hr IV BOLUS ONE Stop: 03/10/21 20:26 Vital Signs Vital signs: Vital Signs - 8 hr 03/10/21 18:45 Temperature 98.3 F Pulse Rate 107 H Respiratory Rate 24 Blood Pressure 142/66 H Pulse Oximetry 97 MDM - Skin/Abscess/Foreign Bdy Lab Data Result diagrams: 03/10/21 19:00 03/10/21 19:00 Labs: Lab Results 03/10/21 03/10/21 03/10/21 Range/Units 19:00 19:00 19:00 WBC 9.5 (4.5-11.0) X10^3/uL RBC 4.13 (4.0-5.2) X10^6/uL Hgb 12.6 (12.0-16.0) g/dL Hct 38.0 (36-46) % MCV 92.0 (80-100) fL MCH 30.4 (26-34) PG MCHC 33.1 (30-36) % RDW 15.7 H (11.6-14.8) % Plt Count 272 (150-400) X10^3/uL Neut % (Auto) 74.1 (50-75) % Lymph % (Auto) 14.6 L (25-40) % [place] % (Auto) 8.2 (3-14) % Eos % (Auto) 2.5 (2-4) % Baso % (Auto) 0.6 (0-2) % Neut # (Auto) 7000 (3843-4989) /uL Lymph # (Auto) 1400 (8175-6434) /uL [place] # (Auto) 800 (0-900) /uL Eos # (Auto) 200 (0-450) /uL Baso # (Auto) 100 (0-100) /uL Sodium 140 (137-145) mmol/L Potassium 4.1 (3.4-5.1) mmol/L Chloride 100 (98-107) mmol/L Carbon Dioxide 36 H (22-32) mmol/L BUN 23 H (7-17) mg/dL Creatinine 0.64 (0.52-1.04) mg/dL Estimated GFR > 60.0 (>60) mL/min BUN/Creatinine Ratio 35.9 H (6-22) Glucose 163 H (80-110) mg/dL Lactate 2.1 (0.7-2.1) mmol/L Calcium 9.7 (8.4-10.2) mg/dL Total Bilirubin 0.3 (0.2-1.3) mg/dL AST 28 (14-36) IU/L ALT 29 (<35) IU/L Alkaline Phosphatase 64 (38-126) U/L Total Protein 6.7 (6.3-8.2) g/dL Albumin 3.7 (3.5-5.0) g/dL Globulin 3.0 (1.7-4.1) g/dL Albumin/Globulin Ratio 1.2 (1.0-2.8) Lipase 96 (23-300) U/L Procalcitonin 0.06 (<0.5) ng/mL 03/10/21 Range/Units 21:39 WBC (4.5-11.0) X10^3/uL RBC (4.0-5.2) X10^6/uL Hgb (12.0-16.0) g/dL Hct (36-46) % MCV (80-100) fL MCH (26-34) PG MCHC (30-36) % RDW (11.6-14.8) % Plt Count (150-400) X10^3/uL Neut % (Auto) (50-75) % Lymph % (Auto) (25-40) % [place] % (Auto) (3-14) % Eos % (Auto) (2-4) % Baso % (Auto) (0-2) % Neut # (Auto) (1037-8192) /uL Lymph # (Auto) (0510-0658) /uL [place] # (Auto) (0-900) /uL Eos # (Auto) (0-450) /uL Baso # (Auto) (0-100) /uL Sodium (137-145) mmol/L Potassium (3.4-5.1) mmol/L Chloride (98-107) mmol/L Carbon Dioxide (22-32) mmol/L BUN (7-17) mg/dL Creatinine (0.52-1.04) mg/dL Estimated GFR (>60) mL/min BUN/Creatinine Ratio (6-22) Glucose (80-110) mg/dL Lactate 1.1 (0.7-2.1) mmol/L Calcium (8.4-10.2) mg/dL Total Bilirubin (0.2-1.3) mg/dL AST (14-36) IU/L ALT (<35) IU/L Alkaline Phosphatase (38-126) U/L Total Protein (6.3-8.2) g/dL Albumin (3.5-5.0) g/dL Globulin (1.7-4.1) g/dL Albumin/Globulin Ratio (1.0-2.8) Lipase (23-300) U/L Procalcitonin (<0.5) ng/mL MDM Narrative Medical decision making narrative: At this time patient is afebrile no leukocytosis procalcitonin is negative. Mildly tachycardic in the ED which improves over time. She actually has a new blister on her left lower leg ice this fact the swelling and erythema may be from edema. A new culture is pending. At this time will add Lasix she has follow-up with her PCP on March 12. I do not have access to cultures and sensitivities but it sounds as though her primary looked at the culture and sensitivity and adjust antibiotics as needed. She has a phone appointment in 2 days and then it is being re-evaluated by her PCP at the end of the week. At this time I think more appropriate she can follow up with her primary. Redness and swelling may be due to fluid retention will start her on Lasix to see if that helps. Discharge Plan Departure Patient Disposition: Home Clinical Impression: Bilateral edema of lower extremity Instructions: Edema Activity Restrictions/Additional Instructions: *You have been diagnosed with lower extremity edema *What to do: At this time new culture from her leg is pending. Blood work is overall reassuring. Sometimes redness and swelling is due to increased fluid in her legs not necessarily infection. At this time left at water pill to your regimen and see if it helped. Compression socks and elevation will also help your legs *Continue to take medications as directed Lasix 20 mg once a day for the next 3 days *Follow up with your primary care provider March 12 as scheduled *Return to ER if you should have fever, pain, inability to walk or any new, worsening or concerning symptoms Prescriptions: New furosemide [Lasix] 20 mg tablet 20 mg PO DAILY Qty: 3 0RF No Action felodipine 10 MG tablet extended release 24 hr 1 tab PO DAILY Qty: 0 0RF Label Comments: strength not verified. hydrochlorothiazide 25 MG tablet 50 mg PO DAILY Qty: 0 0RF Label Comments: strength not verified pravastatin [Pravachol] 20 MG tablet 20 mg PO BEDTIME Qty: 0 0RF (DME) flash glucose sensor [FreeStyle Alana 10 Day Sensor] kit 0RF Label Comments: USE 3 UNITS Q 30 DAYS insulin lispro [Humalog KwikPen Insulin] 100 unit/mL Insulin Pen 1 dose subcut DIRECTED 0RF insulin NPH isoph U-100 human [Humulin N NPH Insulin KwikPen] 100 unit/mL (3 mL) Insulin Pen 28 units subcut BID 0RF duloxetine 60 mg Capsule,Delayed Release(Dr/Ec) 60 mg PO DAILY 0RF Label Comments: strength not verified. faxed pharmacy lisinopril 20 mg Tablet 20 mg PO BID 0RF isosorbide mononitrate 120 mg Tablet Extended Release 24 Hr 120 mg PO QAM 0RF insulin lispro 100 unit/mL Solution See Rx Instructions .ROUTE .COMPLEX 0RF Rx Instructions: 22 units in the morning, 24 units before lunch and 24 units before dinner docusate sodium 250 mg Capsule 250 mg PO DAILY 0RF albuterol sulfate [Ventolin HFA] 90 mcg/actuation Hfa Aerosol Inhaler 2 puff INHALATION Q4H PRN (Reason: Wheezing) 0RF Referrals: Miscellaneous,Doctor, MD [Primary Care Provider] -
== END 2021-03-10 23:00 | disposition home or self-care (01) ==
PROVIDERS: Emergency Provider Emergency Medicine; Family Provider Family Medicine
DX: R60.0 Localized edema (principal); S80.822A Blister (nonthermal), left lower leg, initial encounter; X58.XXXA Exposure to other specified factors, initial encounter
CPT/HCPCS: 36415; 71045; 80053; 83605; 83690; 84145; 85025; 87040; 87070; 87075; 87205; 99284

== ENCOUNTER 2022-02-18 18:10 | Emergency (ER) | payer OTHER, SELFPAY ==
[2022-02-18 18:25] VITALS: BP 146/88; PULSE 106; RESP 30; TEMP 37.2; O2SAT 98
--- NOTE | 2022-02-18 18:31 | DI.CT.S_ITS ---
PROCEDURE: CT HEAD/BRAIN WO CON INDICATIONS: worst headache of life TECHNIQUE: Noncontrast 4.5 mm thick angled axial sections acquired from the foramen magnum to the vertex, with coronal and sagittal reformats. For radiation dose reduction, the following was used: automated exposure control, adjustment of mA and/or kV according to patient size. COMPARISON: None. FINDINGS: Image quality: Excellent. CSF spaces: Basal cisterns are patent. No extra-axial fluid collections. The ventricles are symmetric in size and shape. Brain: No intracranial bleeds or masses. There is cerebral volume loss for age, with resultant ventricular and sulcal prominence. There are periventricular and deep white matter chronic small vessel ischemic changes. There is intracranial internal carotid artery atherosclerosis. Skull and face: Possible lytic lesion at the left frontoparietal calvarium (series 3, image 24) no definite involvement of the inner table confirm an arachnoid granulation. No definite associated fracture. Sinuses: Visualized sinuses and mastoids are clear. IMPRESSION: 1. No intracranial hemorrhage or other acute intracranial abnormality. 2. Possible lytic lesion at the left frontoparietal calvarium. Differential diagnosis includes but is not limited to metastatic disease, myeloma, prominent demineralization, metabolic disease, venous [place], hemangioma. Correlation with any known history of malignancy may be helpful. Dictated by: Osmany Sanchez M.D. on 02/18/2022 at 18:59 Approved by: Osmany Sanchez M.D. on 02/18/2022 at 19:08
[2022-02-18 18:55] LABS: Add Manual Diff / Slide Review NO; Basophils Absolute Auto 100 /uL (0-100); Basophils Percent Auto 0.8 % (0-2); Eosinophils Absolute Auto 200 /uL (0-450); Eosinophils Percent Auto 2.3 % (2-4); Hematocrit 40.1 % (36-46); Hemoglobin 13.3 g/dL (12.0-16.0); Lymphocytes Absolute Auto 1800 /uL (1100-4500); Lymphocytes Percent Auto 18.5 % (25-40); Mean Corpuscular HGB Conc 33.2 % (30-36); Mean Corpuscular Hemoglobin 30.2 PG (26-34); Mean Corpuscular Volume 90.8 fL (80-100); Monocytes Absolute Auto 800 /uL (0-900); Monocytes Percent Auto 8.5 % (3-14); Neutrophils Absolute Auto 6900 /uL (1500-7000); Neutrophils Percent Auto 69.9 % (50-75); Platelet Count 254 X10^3/uL (150-400); Red Blood Cell Count 4.41 X10^6/uL (4.0-5.2); Red Cell Distribution Width 15.5 % (11.6-14.8); White Blood Cell Count 9.8 X10^3/uL (4.5-11.0)
[2022-02-18 18:56] LABS: INR 0.9 (0.9-1.3); Prothrombin Time 10.2 SECONDS (10.1-12.7)
[2022-02-18 18:59] LABS: PTT Partial Thromboplastin Tim 25 SECONDS (26-36)
[2022-02-18 19:02] LABS: Alanine Aminotransferase 34 IU/L (<35); Albumin 3.8 g/dL (3.5-5.0); Albumin Globulin Ratio 1.1 (1.0-2.8); Alkaline Phosphatase 85 U/L (38-126); Aspartate Aminotransferase 29 IU/L (14-36); BUN Creatinine Ratio 30.2 (6-22); Bilirubin Total 0.4 mg/dL (0.2-1.3); Blood Urea Nitrogen 19 mg/dL (7-17); Calcium 9.2 mg/dL (8.4-10.2); Carbon Dioxide 32 mmol/L (22-32); Chloride 94 mmol/L (98-107); Creatine Kinase 189 U/L (30-135); Estimated Glomerular Filt Rate > 60 mL/min (>60); Globulin 3.4 g/dL (1.7-4.1); Glucose 277 mg/dL (80-110); HEMOLYSIS < 15 (0-50); Lipase 93 U/L (23-300); Potassium 4.3 mmol/L (3.4-5.1); Sodium 135 mmol/L (137-145); Total Protein 7.2 g/dL (6.3-8.2)
[2022-02-18 19:13] LABS: Troponin I 0.021 ng/mL (0.01-0.034)
[2022-02-18 19:17] LABS: CKMB % Relative Index 3.1 % (1.5-5.0); Creatine Kinase MB 5.83 ng/mL (<2.37)
--- NOTE | 2022-02-18 21:49 | ED.HA ---
HPI - Headache General Chief Complaint: Headache Stated Complaint: Explosion in head after taking medication Time Seen by Provider: 02/18/22 18:31 Mode of arrival: Ambulatory History of Present Illness HPI Narrative: Patient is a 76-year-old female history of diabetes, chronic respiratory failure on 2 L of home oxygen presenting today with sudden onset of headache. She calls it sudden explosion in her head. She says it isn't really a headache it was explosion it lasted for about 30 minutes and then started resolving. She said she was just sitting there. She is currently being treated for a bilateral kidney infection she is on antibiotics. She started them 5 days ago. She says she is feeling a little bit better but still has some body aches and pains. She is not on any anti-platelet or anticoagulation medication. She has no numbness tingling or weakness. She said the sudden explosion scared her quite a bit she came rushing to the hospital. She thought that she might . And was worried about an aneurysm. Related Data Home Medications Medication Instructions Recorded Confirmed felodipine 10 mg tablet,extended 1 tab PO DAILY ##0 03/01/16 11/23/18 release 24 hr hydrochlorothiazide 25 mg tablet 50 mg PO DAILY ##0 03/01/16 11/23/18 pravastatin 20 mg tablet 20 mg PO BEDTIME ##0 03/01/16 11/23/18 (Pravachol) docusate sodium 250 mg capsule 250 mg PO DAILY 03/11/18 03/11/18 duloxetine 60 mg capsule,delayed 60 mg PO DAILY 03/11/18 11/23/18 release flash glucose sensor 03/11/18 03/11/18 insulin NPH isoph U-100 human 100 28 units SUBCUT BID 03/11/18 03/11/18 unit/mL (3 mL) subcutaneous pen (Humulin N NPH U-100 Insulin KwikPen) insulin lispro 100 unit/mL 1 dose SUBCUT DIRECTED 03/11/18 03/11/18 subcutaneous pen (Humalog KwikPen (U-100) Insulin) insulin lispro 100 unit/mL See Rx Instructions .Route .COMPLEX 03/11/18 03/11/18 subcutaneous solution isosorbide mononitrate 120 mg 120 mg PO QAM 03/11/18 11/23/18 tablet,extended release 24 hr lisinopril 20 mg tablet 20 mg PO BID 03/11/18 11/23/18 albuterol sulfate 90 mcg/actuation 2 puff inhalation Q4H PRN Wheezing 11/23/18 11/23/18 aerosol inhaler (Ventolin HFA) Previous Rx's Medication Instructions Recorded furosemide 20 mg tablet (Lasix) 20 mg PO DAILY #3 tabs 03/10/21 Allergies Allergy/AdvReac Type Severity Reaction Status Date / Time diclofenac [DICLOFENAC] Allergy Severe HIVES & Verified 11/23/18 08:46 ALMOST TO THE POINT OF ANAPHYLACTIC SHOCK. morphine [MORPHINE] Allergy Severe CARDIAC Verified 11/23/18 08:46 ARREST PER PT acetaminophen [From TYLENOL] Allergy Unknown UNKNOWN Verified 11/23/18 08:46 REACTION BUT KNOWS SHE CANNOT TAKE ibuprofen [IBUPROFEN] Allergy Unknown HIVES Verified 11/23/18 08:46 misoprostol [MISOPROSTOL] Allergy Unknown UNKNOWN Verified 11/23/18 08:46 polyethylene glycol Allergy Unknown UNKNOWN Verified 11/23/18 08:46 [POLYETHYLENE GLYCOL] potassium chloride Allergy Unknown UNKNOWN Verified 11/23/18 08:46 [POTASSIUM CHLORIDE] sodium bicarbonate Allergy Unknown UNKNOWN Verified 11/23/18 08:46 [SODIUM BICARBONATE] sodium sulfate Allergy Unknown UNKNOWN Verified 11/23/18 08:46 [SODIUM SULFATE] Review of Systems Review of Systems Narrative: GENERAL: Denies chills, fatigue, malaise, fever, sweats, travel HEENT: Denies sinus pain, ear pain, sore throat, difficulty swallowing, neck pain RESPIRATORY: Chronic respiratory failure, see HPI CARDIOVASCULAR: Denies chest pain, palpitations, orthopnea, edema GASTROINTESTINAL: Denies nausea, vomiting, abdominal pain, diarrhea, constipation, melena. : Current infection, see HPI MUSCULOSKELETAL: Denies weakness, joint pain, or bony pain SKIN: No rash, no erythema, no pruritus NEUROLOGIC: See HPI PSYCHIATRIC: No concerning psychosocial issues. 12 point review of systems is negative except for those stated above and HPI Patient History Medical History (Updated 02/18/22 @ 22:07 by Kimberlee Duenas DO) Dyslipidemia Hypertension Insulin dependent diabetes mellitus Surgical History H/O bilateral salpingo-oophorectomy H/O hemorrhoidectomy H/O: hysterectomy Social History (Reviewed 02/18/22 @ 22:01 by CIERRA Pierre Smoking Status: Never smoker Smoking Status: Never smoker alcohol intake frequency: 0-2 drinks per day Substance Use Type: does not use Exam Initial Vital Signs Initial Vital Signs: Vital Signs Temperature 98.9 F 02/18/22 18:25 Pulse Rate 106 H 02/18/22 18:25 Respiratory Rate 30 H 02/18/22 18:25 Blood Pressure 146/88 H 02/18/22 18:25 Pulse Oximetry 98 02/18/22 18:25 Oxygen Delivery Method 02/18/22 18:25 GENERAL: Alert 76-year-old female pleasantly plump wheelchair bound HEENT: Head atraumatic,EOMI, pupils reactive, face symmetric, moist mucous membranes CARDIOVASCULAR: Regular rate and rhythm without murmurs, rubs or gallops. RESPIRATORY: Breath sounds equal bilaterally, no wheezes rales or rhonchi. ABDOMEN: Soft, nontender. Normoactive bowel sounds all 4 quadrants. No guarding or rebound. EXTREMITIES: Normal range of motion, no clubbing or edema. 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 Course Orders Ordered: ED Orders 02/18/22 18:31 CT head/brain wo con Stat 02/18/22 18:32 EKG-12 Lead Stat 02/18/22 18:38 Complete Blood Count AUTO DIFF Stat Comprehensive Metabolic Panel Stat Lipase Stat Partial Thromboplastin Time Stat Prothrombin Time INR Stat Troponin & CK Cardiac Panel Stat Vital Signs Vital signs: Vital Signs - 8 hr 02/18/22 18:25 Temperature 98.9 F Pulse Rate 106 H Respiratory Rate 30 H Blood Pressure 146/88 H Pulse Oximetry 98 Oxygen Delivery Method Room Air MDM - Headache Lab Data Result diagrams: 02/18/22 18:38 02/18/22 18:38 Labs: Lab Results 02/18/22 02/18/22 02/18/22 Range/Units 18:38 18:38 18:38 WBC 9.8 (4.5-11.0) X10^3/uL RBC 4.41 (4.0-5.2) X10^6/uL Hgb 13.3 (12.0-16.0) g/dL Hct 40.1 (36-46) % MCV 90.8 (80-100) fL MCH 30.2 (26-34) PG MCHC 33.2 (30-36) % RDW 15.5 H (11.6-14.8) % Plt Count 254 (150-400) X10^3/uL Neut % (Auto) 69.9 (50-75) % Lymph % (Auto) 18.5 L (25-40) % [place] % (Auto) 8.5 (3-14) % Eos % (Auto) 2.3 (2-4) % Baso % (Auto) 0.8 (0-2) % Neut # (Auto) 6900 (1495-8325) /uL Lymph # (Auto) 1800 (6439-7254) /uL [place] # (Auto) 800 (0-900) /uL Eos # (Auto) 200 (0-450) /uL Baso # (Auto) 100 (0-100) /uL PT 10.2 (10.1-12.7) SECONDS INR 0.9 (0.9-1.3) APTT 25 L (26-36) SECONDS Sodium 135 L (137-145) mmol/L Potassium 4.3 (3.4-5.1) mmol/L Chloride 94 L (98-107) mmol/L Carbon Dioxide 32 (22-32) mmol/L BUN 19 H (7-17) mg/dL Creatinine 0.63 (0.52-1.04) mg/dL Estimated GFR > 60 (>60) mL/min BUN/Creatinine Ratio 30.2 H (6-22) Glucose 277 H (80-110) mg/dL Calcium 9.2 (8.4-10.2) mg/dL Total Bilirubin 0.4 (0.2-1.3) mg/dL AST 29 (14-36) IU/L ALT 34 (<35) IU/L Alkaline Phosphatase 85 (38-126) U/L Total Creatine Kinase 189 H (30-135) U/L CK-MB (CK-2) 5.83 H (<2.37) ng/mL CK-MB (CK-2) Rel Index 3.1 (1.5-5.0) % Troponin I 0.021 (0.01-0.034) ng/mL Total Protein 7.2 (6.3-8.2) g/dL Albumin 3.8 (3.5-5.0) g/dL Globulin 3.4 (1.7-4.1) g/dL Albumin/Globulin Ratio 1.1 (1.0-2.8) Lipase 93 (23-300) U/L Imaging Data CT scan - head: Radiologist's Impression: Signed Patient: Emilee Lundberg MR#: [id number] : 1945 Acct:[id number] Age/Sex: 76 / F Date of Service: 02/18/22 Loc: ED Accession Number: [id number] ?? Procedure: CT head/brain wo con Ordering Provider: Kimberlee Duenas D.O. PROCEDURE:? CT HEAD/BRAIN WO CON ? INDICATIONS:? worst headache of life ? TECHNIQUE:? Noncontrast 4.5 mm thick angled axial sections acquired from the foramen magnum to the vertex, with coronal and sagittal reformats.? For radiation dose reduction, the following was used:? automated exposure control, adjustment of mA and/or kV according to patient size.? ? COMPARISON:? None. ? FINDINGS:? Image quality:? Excellent.? ? CSF spaces:? Basal cisterns are patent.? No extra-axial fluid collections.? The ventricles are symmetric in size and shape.? ? Brain:? No intracranial bleeds or masses.? There is cerebral volume loss for age, with resultant ventricular and sulcal prominence.? There are periventricular and deep white matter chronic small vessel ischemic changes.? There is intracranial internal carotid artery atherosclerosis.? ? Skull and face:? Possible lytic lesion at the left frontoparietal calvarium (series 3, image 24) no definite involvement of the inner table confirm an arachnoid granulation.? No definite associated fracture. ? Sinuses:? Visualized sinuses and mastoids are clear.? ? IMPRESSION:? 1. No intracranial hemorrhage or other acute intracranial abnormality.? 2. Possible lytic lesion at the left frontoparietal calvarium.? Differential diagnosis includes but is not limited to metastatic disease, myeloma, prominent demineralization, metabolic disease, venous [place], hemangioma.? Correlation with any known history of malignancy may be helpful.? ? ? Dictated by: Osmany Sanchez M.D. on 02/18/2022 at 18:59 ? ? ECG Data Interpretation: Sinus rhythm rate 102 MS interval 112 QRS [address] changes MDM Narrative Medical decision making narrative: Patient presents with off headache started at 6:00 p.m.. It lasted for 30 minutes and has overall resolved. Currently on antibiotics no evidence of sepsis. Noncontrast head CT is negative. At this time I do not think she needs lumbar puncture or CT angio. She is neurologically intact she is quite anxious. At this time reassured Discharge Plan Departure Patient Disposition: Home Clinical Impression: Headache Instructions: DI for Headache Activity Restrictions/Additional Instructions: *You have been diagnosed with headache *What to do: At this time it your CT scan negative. Blood work is reassuring. *Continue to take medications as directed Tylenol 650 mg every 4-6 hours if needed for [id number] pain *Follow up with your primary care provider in 2-3 days or call [phone] *Return to ER if you should have worsening headache, vomiting numbness tingling weakness increased confusion or any new, worsening or concerning symptoms Prescriptions: No Action felodipine 10 MG tablet extended release 24 hr 1 tab PO DAILY Qty: 0 Label Comments: strength not verified. hydrochlorothiazide 25 MG tablet 50 mg PO DAILY Qty: 0 Label Comments: strength not verified pravastatin [Pravachol] 20 MG tablet 20 mg PO BEDTIME Qty: 0 (DME) flash glucose sensor [FreeStyle Alana 10 Day Sensor] kit Label Comments: USE 3 UNITS Q 30 DAYS insulin lispro [Humalog KwikPen Insulin] 100 unit/mL Insulin Pen 1 dose subcut DIRECTED insulin NPH isoph U-100 human [Humulin N NPH Insulin KwikPen] 100 unit/mL (3 mL) Insulin Pen 28 units subcut BID duloxetine 60 mg Capsule,Delayed Release(Dr/Ec) 60 mg PO DAILY Label Comments: strength not verified. faxed pharmacy lisinopril 20 mg Tablet 20 mg PO BID isosorbide mononitrate 120 mg Tablet Extended Release 24 Hr 120 mg PO QAM insulin lispro 100 unit/mL Solution See Rx Instructions .ROUTE .COMPLEX Rx Instructions: 22 units in the morning, 24 units before lunch and 24 units before dinner docusate sodium 250 mg Capsule 250 mg PO DAILY albuterol sulfate [Ventolin HFA] 90 mcg/actuation Hfa Aerosol Inhaler 2 puff INHALATION Q4H PRN (Reason: Wheezing) furosemide [Lasix] 20 mg tablet 20 mg PO DAILY Qty: 3 0RF Referrals: Miscellaneous,Doctor, MD [Primary Care Provider] - Visit Report Forms: Patient Portal/API
[2022-02-18 22:19] VITALS: BP 142/72; PULSE 90; RESP 16; O2SAT 98
== END 2022-02-18 22:20 | disposition home or self-care (01) ==
PROVIDERS: Emergency Provider Emergency Medicine; Family Provider Family Medicine
DX: R51.9 Headache, unspecified (principal); Z79.899 Other long term (current) drug therapy
CPT/HCPCS: 70450; 80053; 82550; 82553; 83690; 84484; 85025; 85610; 85730; 93005; 99281; 99284

== ENCOUNTER → 2023-11-26 12:51 | Outpatient (CLI) | payer OTHER, SELFPAY | LOC: WC 13:29 | PROVIDERS: Family Provider Family Medicine; Visit Provider Physician Assistant | DX: I89.0 Lymphedema, not elsewhere classified (principal); L97.822 Non-pressure chronic ulcer of other part of left lower leg with fat layer exposed; E11.42 Type 2 diabetes mellitus with diabetic polyneuropathy; L53.8 Other specified erythematous conditions | CPT/HCPCS: 11042; 11045; 87070; 87077; 87147; 87186; 87205; 99203; 99214 ==

== ENCOUNTER 2023-11-30 12:43 | Emergency (ER) | payer OTHER, SELFPAY ==
[2023-11-30] VITALS (16 sets, daily range): BP systolic 135–177; BP diastolic 63–115; PULSE 86–94; RESP 19–36; TEMP 36.8; O2SAT 91–100; BMI 44.9
--- NOTE | 2023-11-30 15:19 | ED.WOUNDLAC ---
HPI - Wound/Laceration General Chief Complaint: Wound/Laceration Stated Complaint: infected incision, wound care sx 11/26 Time Seen by Provider: 11/30/23 15:04 Source: patient Mode of arrival: Wheelchair History of Present Illness HPI narrative: 78-year-old female with history of diabetes, chronic right anterior leg wound for the 6 months, has been followed by [facility] [place], had 1st wound care clinic visit on Wednesday, some debridement, increasing redness and pain, with some discharge since that visit. No fevers or chills. She has not been started on any oral antibiotics. Related Data Home Medications Medication Instructions Recorded Confirmed felodipine 10 mg tablet,extended 1 tab PO DAILY ##0 03/01/16 11/23/18 release 24 hr hydrochlorothiazide 25 mg tablet 50 mg PO DAILY ##0 03/01/16 11/23/18 pravastatin 20 mg tablet 20 mg PO BEDTIME ##0 03/01/16 11/23/18 (Pravachol) docusate sodium 250 mg capsule 250 mg PO DAILY 03/11/18 03/11/18 duloxetine 60 mg capsule,delayed 60 mg PO DAILY 03/11/18 11/23/18 release flash glucose sensor 03/11/18 03/11/18 insulin NPH isoph U-100 human 100 28 units SUBCUT BID 03/11/18 03/11/18 unit/mL (3 mL) subcutaneous pen (Humulin N NPH U-100 Insulin KwikPen) insulin lispro 100 unit/mL 1 dose SUBCUT DIRECTED 03/11/18 03/11/18 subcutaneous pen (Humalog KwikPen (U-100) Insulin) insulin lispro 100 unit/mL See Rx Instructions .Route .COMPLEX 03/11/18 03/11/18 subcutaneous solution isosorbide mononitrate 120 mg 120 mg PO QAM 03/11/18 11/23/18 tablet,extended release 24 hr lisinopril 20 mg tablet 20 mg PO BID 03/11/18 11/23/18 albuterol sulfate 90 mcg/actuation 2 puff inhalation Q4H PRN Wheezing 11/23/18 11/23/18 aerosol inhaler (Ventolin HFA) Previous Rx's Medication Instructions Recorded furosemide 20 mg tablet (Lasix) 20 mg PO DAILY #3 tabs 03/10/21 cephalexin 500 mg capsule 500 mg PO QID 7 days #28 caps 11/30/23 Allergies Allergy/AdvReac Type Severity Reaction Status Date / Time diclofenac [DICLOFENAC] Allergy Severe HIVES & Verified 11/23/18 08:46 ALMOST TO THE POINT OF ANAPHYLACTIC SHOCK. morphine [MORPHINE] Allergy Severe CARDIAC Verified 11/23/18 08:46 ARREST PER PT acetaminophen [From TYLENOL] Allergy Unknown UNKNOWN Verified 11/23/18 08:46 REACTION BUT KNOWS SHE CANNOT TAKE ibuprofen [IBUPROFEN] Allergy Unknown HIVES Verified 11/23/18 08:46 misoprostol [MISOPROSTOL] Allergy Unknown UNKNOWN Verified 11/23/18 08:46 polyethylene glycol Allergy Unknown UNKNOWN Verified 11/23/18 08:46 [POLYETHYLENE GLYCOL] potassium chloride Allergy Unknown UNKNOWN Verified 11/23/18 08:46 [POTASSIUM CHLORIDE] sodium bicarbonate Allergy Unknown UNKNOWN Verified 11/23/18 08:46 [SODIUM BICARBONATE] sodium sulfate Allergy Unknown UNKNOWN Verified 11/23/18 08:46 [SODIUM SULFATE] Review of Systems Review of Systems Narrative: see HPI Patient History Medical History (Updated 11/30/23 @ 18:31 by Perry Castellon MD) Insulin dependent diabetes mellitus Dyslipidemia Hypertension Surgical History H/O bilateral salpingo-oophorectomy H/O: hysterectomy H/O hemorrhoidectomy Social History Smoking Status: Never smoker Smoking Status: Never smoker alcohol intake frequency: holidays/special occasions only Substance Use Type: does not use Exam Narrative Exam Narrative: GENERAL: Well-developed patient, in mild distress. HEAD: Atraumatic. Normocephalic. EYES: Pupils equal round and reactive. Extraocular motions intact. No scleral icterus. No injection or drainage. ENT: Nose without bleeding, purulent drainage. Throat without erythema, tonsillar hypertrophy or exudate. Airway patent. NECK: Trachea midline. Non tender CARDIOVASCULAR: Regular rate and rhythm without murmurs, gallops, or rubs. RESPIRATORY: Clear to auscultation. Breath sounds equal bilaterally. No wheezes, rales, or rhonchi. GASTROINTESTINAL: Abdomen soft, non-tender, nondistended. EXTREMITIES: Right anterior shallow wound, with chronic venous stasis changes, some clear weeping, can dorsiflex and plantar flex her ankle. No lymphangitic streaking to the knee or thigh BACK: Nontender without deformity or crepitance. No flank tenderness. NEURO: AOx3. SKIN: No rash or erythema of visible areas Initial Vital Signs Initial Vital Signs: Vital Signs Temperature 98.2 F 11/30/23 12:52 Pulse Rate 90 11/30/23 12:52 Respiratory Rate 20 11/30/23 12:52 Blood Pressure 135/68 11/30/23 12:52 Pulse Oximetry 96 11/30/23 12:52 Oxygen Delivery Method Room Air 11/30/23 12:52 Course Orders Ordered: ED Orders 11/30/23 14:58 ESR [Erythrocyte Sedimentation Rate] Stat 11/30/23 15:10 CRP [C-Reactive Protein Quant] Stat Complete Blood Count AUTO DIFF Stat Comprehensive Metabolic Panel Stat Lactate (Lactic Acid) Stat 11/30/23 15:56 XR tibia fibula RT 2V Stat 11/30/23 16:05 US periph venous low extrem rt Stat 11/30/23 17:26 Urinalysis and Microscopic Stat Urine Culture Stat Discontinued Medications Doxycycline Hyclate (Doxycycline Hyclate 100 Mg Tablet) 100 mg PO NOW ONE Stop: 11/30/23 16:03 Last Admin: 11/30/23 16:15 Dose: 100 mg Documented By: IVET Ceftriaxone Sodium 1,000 mg/ (Sodium Chloride) 100 mls @ 200 mls/hr IV NOW ONE Stop: 11/30/23 15:57 Last Infusion: 11/30/23 17:25 Dose: Infused Documented By: Admin: 11/30/23 16:15 Dose: 200 mls/hr Documented By: IVET Vital Signs Vital signs: Vital Signs - 8 hr 11/30/23 13:27 11/30/23 13:30 11/30/23 14:00 Pulse Rate 92 H 91 H 86 Respiratory Rate 32 H 30 H Blood Pressure Pulse Oximetry 96 97 99 11/30/23 14:30 11/30/23 14:44 11/30/23 14:44 Pulse Rate 91 H 90 Respiratory Rate 24 22 Blood Pressure 143/63 H Pulse Oximetry 98 99 11/30/23 15:00 11/30/23 15:30 11/30/23 15:31 Pulse Rate 88 90 Respiratory Rate 21 32 H Blood Pressure 168/72 H Pulse Oximetry 98 100 11/30/23 15:31 11/30/23 16:00 11/30/23 16:01 Pulse Rate 89 91 H Respiratory Rate 28 H 27 H Blood Pressure 177/115 H Pulse Oximetry 99 99 11/30/23 16:01 11/30/23 16:30 11/30/23 16:31 Pulse Rate 92 H 92 H Respiratory Rate 34 H 36 H Blood Pressure 169/67 H Pulse Oximetry 99 100 11/30/23 16:31 11/30/23 17:20 11/30/23 17:30 Pulse Rate 94 H 93 H 89 Respiratory Rate 19 Blood Pressure Pulse Oximetry 96 91 98 11/30/23 18:00 Pulse Rate 88 Respiratory Rate 22 Blood Pressure Pulse Oximetry 98 MDM - Wound/Laceration Lab Data Attestation: I reviewed the patient's lab results. 11/30/23 15:10 11/30/23 15:10 Labs: Lab Results 11/30/23 11/30/23 11/30/23 Range/Units 14:58 15:10 17:26 WBC 9.9 (4.5-11.0) X10^3/uL RBC 4.05 (4.0-5.2) X10^6/uL Hgb 11.7 L (12.0-16.0) g/dL Hct 35.4 L (36-46) % MCV 87.4 (80-100) fL MCH 28.8 (26-34) PG MCHC 33.0 (30-36) % RDW 16.4 H (11.6-14.8) % Plt Count 271 (150-400) X10^3/uL Neut % (Auto) 67.9 (50-75) % Lymph % (Auto) 17.0 L (25-40) % [place] % (Auto) 11.7 (3-14) % Eos % (Auto) 2.9 (2-4) % Baso % (Auto) 0.5 (0-2) % Neut # (Auto) 6800 (7250-8528) /uL Lymph # (Auto) 1700 (1644-5202) /uL [place] # (Auto) 1200 H (0-900) /uL Eos # (Auto) 300 (0-450) /uL Baso # (Auto) 0 (0-100) /uL ESR 37 H (0-20) MM/HR Sodium 131 L (137-145) mmol/L Potassium 3.6 (3.4-5.1) mmol/L Chloride 97 L (98-107) mmol/L Carbon Dioxide 29 (22-32) mmol/L BUN 11 (7-17) mg/dL Creatinine 0.45 L (0.52-1.04) mg/dL Estimated GFR > 60 (>60) mL/min BUN/Creatinine Ratio 24.4 H (6-22) Glucose 167 H (80-110) mg/dL Lactate 1.6 (0.7-2.1) mmol/L Calcium 9.0 (8.4-10.2) mg/dL Total Bilirubin 0.5 (0.2-1.3) mg/dL AST 32 (14-36) IU/L ALT 18 (<35) IU/L Alkaline Phosphatase 74 (38-126) U/L C-Reactive Protein 5.4 H (<1.0) mg/dL Total Protein 6.1 L (6.3-8.2) g/dL Albumin 3.3 L (3.5-5.0) g/dL Globulin 2.8 (1.7-4.1) g/dL Albumin/Globulin Ratio 1.2 (1.0-2.8) Urine Color Yellow Urine Appearance Clear Urine pH 7.0 (4.5-8.0) Ur Specific [place] <=1.005 (1.000-1.035) Urine Protein Negative (Negative) Urine Glucose (UA) Negative (Negative) g/dL Urine Ketones Negative (NEGATIVE) Urine Occult Blood Negative (Negative) Urine Nitrate Positive H (Negative) Urine Bilirubin Negative (NEGATIVE) Urine Urobilinogen 0.2 (0.2) E.U./dL Ur Leukocyte Esterase 2+ H (NEGATIVE) Urine RBC 0-1/hpf (0-5/HPF) Urine WBC 5-10/hpf H (0-5/HPF) Ur Squamous Epith Cells 0-1 /hpf (0-5/HPF) Urine Bacteria Many (>30) H (None) Ur Culture Indicated? Specimen cultured Vol Urine Centrifuged 10ml (spun) Imaging Data Ultrasound left lower extremity venous Doppler: Radiologist's Impression: [address] [address] Ultrasound Report Signed Patient: Emilee Lundberg MR#: [id number] : 1945 Acct:[id number] Age/Sex: 78 / F Date of Service: 11/30/23 Loc: ED Accession Number: [id number] Procedure: US periph venous low extrem rt Ordering Provider: Perry Castellon MD PROCEDURE: US PERIP VENOUS LOW EXTREM RT INDICATIONS: PAIN AND SWELLING TECHNIQUE: Real-time imaging, as well as color and pulse Doppler interrogation, were performed of the lower extremity deep veins from the inguinal ligament to the popliteal fossa, with documentation of the visualized calf veins. COMPARISON: None. FINDINGS: The common femoral, femoral, popliteal, and the visualized calf veins are normally compressible, and free of intraluminal thrombus. Color and pulse Doppler demonstrate normal phasic intraluminal flow. There is normal augmentation response to distal compression maneuver. Subcutaneous edema. Arterial atherosclerotic plaque. IMPRESSION: No findings of lower extremity deep venous thrombosis. Dictated by: Arnav Armando M.D. on 11/30/2023 at 17:34 Approved by: Arnav Armando M.D. on 11/30/2023 at 17:35 Extremity x-ray #1: Radiologist's Impression: [place] [address] XRay Report Signed Patient: Emilee Lundberg MR#: [id number] : 1945 Acct:[id number] Age/Sex: 78 / F Date of Service: 11/30/23 Loc: ED Accession Number: [id number] Procedure: XR tibia fibula RT 2V Ordering Provider: Perry Castellon MD PROCEDURE: XR TIBIA FUBULA RT 2V INDICATIONS: Chronic ulcer, eval for underlying osteo TECHNIQUE: 4 views of the tibia and fibula were acquired. COMPARISON: None. FINDINGS: Bones: No fractures or dislocations. No focal area of sclerosis. No erosion seen. No suspicious bony lesions. Soft tissues: No suspicious soft tissue calcifications or masses. No radiopaque foreign body. IMPRESSION: No osteomyelitis identified. Dictated by: Arnav Armando M.D. on 11/30/2023 at 18:11 Approved by: Arnav Armando M.D. on 11/30/2023 at 18:13 [facility] Narrative Medical decision making narrative: 78-year-old female with history of diabetes and chronic right anterior foreleg ulcer, followed by [facility], wound clinic visit Wednesday, wound culture was sent which was positive for methicillin sensitive staph aureus species, though patient was not treated with any antibiotics for that visit. No fever. Labs sent, x-rays requested to look for underlying osteomyelitis changes. Ultrasound requested look for DVT changes. Ultrasound negative for DVT, see radiology report. X-rays were negative for osteomyelitis changes, see radiology report White blood cell count not elevated. IV ceftriaxone for cellulitis, recent MSSA wound culture from 11/26/2023 noted. Urinalysis showed pyuria, urine culture requested. We will discharge patient on Keflex, no fever, that hopefully can treat the wound and also urinary infection. Case discussed with hospitalist, suggests outpatient treatment for now, patient agreeable. Prescription sent to her pharmacy [facility] preferred pharmacy. Home, stable, with . Follow up with [facility] PCP advised, return precautions discussed Critical Care Time Critical Care Time Critical Care Time: Yes Total Critical Care Time: 31 Attestation: The high probability of a clinically significant, sudden or life threatening deterioration of the [integument, musculoskeletal,] system(s) required my full and direct attention, intervention and personal management. The aggregate critical care time was [31] minutes. This time is in addition to time spent performing reported procedures but includes the following: [x] Data Review and interpretation [x] Patient assessment and monitoring of vital signs [x] Documentation [x] Medication orders and management Discharge Plan Departure Patient Disposition: Home Clinical Impression: Cellulitis of right lower leg, Urinary tract infection Activity Restrictions/Additional Instructions: Chronic right anterior foreleg wound, recently seen wound care clinic with culture sent on 11/26 23, not currently on any antibiotics, with local debridement, not yet on any antibiotics. Wound culture from that showed a methicillin sensitive staph aureus bacteria. Possible cellulitis infection by clinical evaluation today. X-rays not obvious for any underlying bone infection. Labs sent which were reassuring and not significantly altered, not indicative of severe infection at this time. Ultrasound did not show any blood clot to the leg at this time. Case discussed with the inpatient doctor, who felt it would be reasonable to try oral antibiotics at this time. IV ceftriaxone antibiotic was given. Cephalexin antibiotic sent to your pharmacy to take. Wound check advised the next few days with your wound clinic or your regular doctor. Return to this/nearest emergency department for any change worsening symptoms or any concerns prior Prescriptions: New cephalexin 500 mg capsule 500 mg PO QID 7 Days Qty: 28 0RF No Action felodipine 10 MG tablet extended release 24 hr 1 tab PO DAILY Qty: 0 Patient Comments: strength not verified. hydrochlorothiazide 25 MG tablet 50 mg PO DAILY Qty: 0 Patient Comments: strength not verified pravastatin [Pravachol] 20 MG tablet 20 mg PO BEDTIME Qty: 0 (DME) flash glucose sensor [FreeStyle Alana 10 Day Sensor] kit Patient Comments: USE 3 UNITS Q 30 DAYS insulin lispro [Humalog KwikPen Insulin] 100 unit/mL Insulin Pen 1 dose subcut DIRECTED insulin NPH isoph U-100 human [Humulin N NPH Insulin KwikPen] 100 unit/mL (3 mL) Insulin Pen 28 units subcut BID duloxetine 60 mg Capsule,Delayed Release(Dr/Ec) 60 mg PO DAILY Patient Comments: strength not verified. faxed pharmacy lisinopril 20 mg Tablet 20 mg PO BID isosorbide mononitrate 120 mg Tablet Extended Release 24 Hr 120 mg PO QAM insulin lispro 100 unit/mL Solution See Rx Instructions .ROUTE .COMPLEX Rx Instructions: 22 units in the morning, 24 units before lunch and 24 units before dinner docusate sodium 250 mg Capsule 250 mg PO DAILY albuterol sulfate [Ventolin HFA] 90 mcg/actuation Hfa Aerosol Inhaler 2 puff INHALATION Q4H PRN (Reason: Wheezing) furosemide [Lasix] 20 mg tablet 20 mg PO DAILY Qty: 3 0RF Referrals: Miscellaneous,Doctor, MD [Primary Care Provider] - Stand Alone Forms: Patient Portal/API
[2023-11-30 15:23] LABS: Add Manual Diff / Slide Review NO; Basophils Absolute Auto 0 /uL (0-100); Basophils Percent Auto 0.5 % (0-2); Eosinophils Absolute Auto 300 /uL (0-450); Eosinophils Percent Auto 2.9 % (2-4); Hematocrit 35.4 % (36-46); Hemoglobin 11.7 g/dL (12.0-16.0); Lymphocytes Absolute Auto 1700 /uL (1100-4500); Mean Corpuscular Hemoglobin 28.8 PG (26-34); Mean Corpuscular Volume 87.4 fL (80-100); Monocytes Absolute Auto 1200 /uL (0-900); Monocytes Percent Auto 11.7 % (3-14); Neutrophils Absolute Auto 6800 /uL (1500-7000); Neutrophils Percent Auto 67.9 % (50-75); Platelet Count 271 X10^3/uL (150-400); Red Blood Cell Count 4.05 X10^6/uL (4.0-5.2); Red Cell Distribution Width 16.4 % (11.6-14.8); White Blood Cell Count 9.9 X10^3/uL (4.5-11.0)
[2023-11-30 15:37] LABS: Lactate (Lactic Acid) 1.6 mmol/L (0.7-2.1)
[2023-11-30 15:38] LABS: Alanine Aminotransferase 18 IU/L (<35); Albumin 3.3 g/dL (3.5-5.0); Albumin Globulin Ratio 1.2 (1.0-2.8); Alkaline Phosphatase 74 U/L (38-126); Aspartate Aminotransferase 32 IU/L (14-36); BUN Creatinine Ratio 24.4 (6-22); Bilirubin Total 0.5 mg/dL (0.2-1.3); Blood Urea Nitrogen 11 mg/dL (7-17); Carbon Dioxide 29 mmol/L (22-32); Chloride 97 mmol/L (98-107); Estimated Glomerular Filt Rate > 60 mL/min (>60); Globulin 2.8 g/dL (1.7-4.1); Glucose 167 mg/dL (80-110); HEMOLYSIS 30 (0-50); Potassium 3.6 mmol/L (3.4-5.1); Sodium 131 mmol/L (137-145); Total Protein 6.1 g/dL (6.3-8.2)
--- NOTE | 2023-11-30 15:56 | DI.RAD.S_ITS ---
PROCEDURE: XR TIBIA FUBULA RT 2V INDICATIONS: Chronic ulcer, eval for underlying osteo TECHNIQUE: 4 views of the tibia and fibula were acquired. COMPARISON: None. FINDINGS: Bones: No fractures or dislocations. No focal area of sclerosis. No erosion seen. No suspicious bony lesions. Soft tissues: No suspicious soft tissue calcifications or masses. No radiopaque foreign body. IMPRESSION: No osteomyelitis identified. Dictated by: Arnav Armando M.D. on 11/30/2023 at 18:11 Approved by: Arnav Armando M.D. on 11/30/2023 at 18:13
--- NOTE | 2023-11-30 16:05 | DI.US.S_ITS ---
PROCEDURE: US PERIPH VENOUS LOW EXTREM RT INDICATIONS: PAIN AND SWELLING TECHNIQUE: Real-time imaging, as well as color and pulse Doppler interrogation, were performed of the lower extremity deep veins from the inguinal ligament to the popliteal fossa, with documentation of the visualized calf veins. COMPARISON: None. FINDINGS: The common femoral, femoral, popliteal, and the visualized calf veins are normally compressible, and free of intraluminal thrombus. Color and pulse Doppler demonstrate normal phasic intraluminal flow. There is normal augmentation response to distal compression maneuver. Subcutaneous edema. Arterial atherosclerotic plaque. IMPRESSION: No findings of lower extremity deep venous thrombosis. Dictated by: Arnav Armando M.D. on 11/30/2023 at 17:34 Approved by: Arnav Armando M.D. on 11/30/2023 at 17:35
[2023-11-30 16:07] LABS: C-Reactive Protein Quant 5.4 mg/dL (<1.0)
[2023-11-30] MEDS: cefTRIAXone 1,000 MG in SODIUM CHLORIDE 0.9% 100 ML 200 MG IV (16:15)
[2023-11-30] MEDS: DOXYCYCLINE HYCLATE 100 MG TABLET PO (16:15)
[2023-11-30 16:16] LABS: Erythrocyte Sedimentation Rate 37 MM/HR (0-20)
[2023-11-30 17:31] LABS: Appearance Urine UA CLEAR; Bilirubin Urine UA NEGATIVE (NEGATIVE); Color Urine UA YELLOW; Glucose Urine UA NEGATIVE (Negative); Ketones Urine UA NEGATIVE (NEGATIVE); Leukocyte Esterase Urine UA 2+ (NEGATIVE); Nitrite Urine UA POSITIVE (Negative); Occult Blood Urine UA NEGATIVE (Negative); Protein Urine UA NEGATIVE (Negative); Specific Gravity Urine UA <=1.005 (1.000-1.035); Urobilinogen Urine UA 0.2 E.U./dL (0.2)
[2023-11-30 17:41] LABS: Bacteria Urine Many (>30); Culture Indicated Urine Specimen Cultured; RBC Urine 0-1/HPF (0-5/HPF); Squamous Epithelial Cell Urine 0-1 /HPF (0-5/HPF); Urine Volume 10mL (spun); WBC Urine 5-10/HPF (0-5/HPF)
== END 2023-11-30 20:05 | disposition home or self-care (01) ==
PROVIDERS: Emergency Provider Emergency Medicine; Family Provider Family Medicine
DX: L03.115 Cellulitis of right lower limb (principal); N39.0 Urinary tract infection, site not specified; Z79.899 Other long term (current) drug therapy
CPT/HCPCS: 36415; 73590; 80053; 81001; 83605; 85025; 85651; 86140; 87077; 87086; 87186; 93971; 96365; 99284; J0696

== ENCOUNTER 2024-02-27 16:47 | Inpatient (IN) | payer OTHER, SELFPAY ==
[2024-02-27] VITALS (10 sets, daily range): BP systolic 113–144; BP diastolic 54–66; PULSE 97–107; RESP 16–26; TEMP 36.6–36.7; O2SAT 97–99; BMI 43.0
--- NOTE | 2024-02-27 17:34 | ED_ITS ---
HPI - Back Pain/Injury <Joan Abreu PA-C - Last Filed: 02/27/24 19:00> General Chief Complaint: Back Pain/Injury Stated Complaint: constipated 2months, back px, fever 101-102F Time Seen by Provider: 02/27/24 17:13 Source: patient History of Present Illness HPI Narrative: 78-year-old diabetic obese woman with poor mobility, largely wheelchair-bound, presents with concern for 2 months of constipation, 3 weeks of low back pain and about 1 week of fevers to 101/102. Has been states he also thinks that for about the past week she has been peeing more frequently, she does wear depends. She has had a previous bladder stimulator that failed and is actively seeing Urology. Patient states that a couple months ago at the same time that she developed constipation she started having right lower quadrant abdominal pains. These pains seemed fairly consistent and have never been sharp or intense and do not seem better with bowel movements nothing seems to make it better or worse. The back pain she describes as in the center of her low back as a constant pain that has gradually been intensifying over the past few weeks. She has been feeling somewhat nauseous for about the past week also. She has not had any vomiting. She describes her stools as little balls that are quite hard she says she does have a bowel movement daily, and has not had a change in her bowel movements for the past 2 months despite taking Colace and MiraLax. She also states that she has a problem with her shins that has been treated with antibiotics, she says it is healing well, she is seen by wound care at her home twice weekly for evaluation and management of this. She denies chills, vomiting, diarrhea, severe abdominal pain or any other complaints or concerns. Related Data Home Medications Medication Instructions Recorded Confirmed felodipine 10 mg tablet,extended 1 tab PO DAILY ##0 03/01/16 11/23/18 release 24 hr hydrochlorothiazide 25 mg tablet 50 mg PO DAILY ##0 03/01/16 11/23/18 pravastatin 20 mg tablet 20 mg PO BEDTIME ##0 03/01/16 11/23/18 (Pravachol) docusate sodium 250 mg capsule 250 mg PO DAILY 03/11/18 03/11/18 duloxetine 60 mg capsule,delayed 120 mg PO DAILY 03/11/18 11/23/18 release flash glucose sensor 03/11/18 03/11/18 insulin NPH isoph U-100 human 100 28 units SUBCUT BID 03/11/18 03/11/18 unit/mL (3 mL) subcutaneous pen (Humulin N NPH U-100 Insulin KwikPen) insulin lispro 100 unit/mL 1 dose SUBCUT DIRECTED 03/11/18 03/11/18 subcutaneous pen (Humalog KwikPen (U-100) Insulin) insulin lispro 100 unit/mL See Rx Instructions .Route .COMPLEX 03/11/18 03/11/18 subcutaneous solution isosorbide mononitrate 120 mg 120 mg PO QAM 03/11/18 11/23/18 tablet,extended release 24 hr lisinopril 20 mg tablet 20 mg PO BID 03/11/18 11/23/18 albuterol sulfate 90 mcg/actuation 2 puff inhalation Q4H PRN Wheezing 11/23/18 11/23/18 aerosol inhaler (Ventolin HFA) atorvastatin 40 mg tablet 40 mg PO DAILY 02/27/24 02/27/24 gabapentin 300 mg capsule 600 mg PO DAILY 02/27/24 02/27/24 lisinopril 20 mg tablet 40 mg PO DAILY 02/27/24 02/27/24 Previous Rx's Medication Instructions Recorded furosemide 20 mg tablet (Lasix) 20 mg PO DAILY #3 tabs 03/10/21 Allergies Allergy/AdvReac Type Severity Reaction Status Date / Time diclofenac [DICLOFENAC] Allergy Severe HIVES & Verified 02/27/24 16:54 ALMOST TO THE POINT OF ANAPHYLACTIC SHOCK. morphine [MORPHINE] Allergy Severe CARDIAC Verified 02/27/24 16:54 ARREST PER PT ibuprofen [IBUPROFEN] Allergy Unknown HIVES Verified 02/27/24 16:54 misoprostol [MISOPROSTOL] Allergy Unknown UNKNOWN Verified 02/27/24 16:54 potassium chloride Allergy Unknown UNKNOWN Verified 02/27/24 16:54 [POTASSIUM CHLORIDE] sodium bicarbonate Allergy Unknown UNKNOWN Verified 02/27/24 16:54 [SODIUM BICARBONATE] sodium sulfate Allergy Unknown UNKNOWN Verified 02/27/24 16:54 [SODIUM SULFATE] Review of Systems <Joan Abreu PA-C - Last Filed: 02/27/24 19:00> Review of Systems Narrative: See HPI Patient History <Joan Abreu PA-C - Last Filed: 02/27/24 19:00> Medical History (Updated 02/27/24 @ 21:35 by Romain Rodriguez MD) Insulin dependent diabetes mellitus Dyslipidemia Hypertension Surgical History H/O bilateral salpingo-oophorectomy H/O: hysterectomy H/O hemorrhoidectomy Social History Smoking Status: Never smoker Smoking Status: Never smoker alcohol intake frequency: holidays/special occasions only Substance Use Type: does not use Exam <Joan Abreu PA-C - Last Filed: 02/27/24 19:00> Narrative Exam Narrative: GENERAL: [78] year old patient appears stated age. Morbidly obese patient, in mild distress. HEAD: Atraumatic. Normocephalic. EYES: Pupils equal round and reactive. Extraocular motions intact. No scleral icterus. No injection or drainage. ENT: Nose without bleeding, purulent drainage. Throat without erythema, tonsillar hypertrophy or exudate. Airway patent. NECK: Trachea midline. Non tender CARDIOVASCULAR: Regular rate and rhythm without murmurs, gallops, or rubs. RESPIRATORY: Clear to auscultation. Breath sounds equal bilaterally. No wheezes, rales, or rhonchi. GASTROINTESTINAL: Abdomen soft, protuberant, nondistended; there is mild right lower quadrant tenderness (chronic per patient) there is mild epigastric tenderness. Otherwise abdomen is nontender, there is left flank/CVA tenderness with percussion. EXTREMITIES: See skin moving all extremities. BACK: Nontender without deformity or crepitance. There is tenderness over the low mid back and lateral flanks at approximately the L4-5 level. NEURO: AOx3. SKIN: There is chronic skin discoloration skin changes consistent with a chronic venous insufficiency and previous cellulitis on the patient's anterior shins. Slightly warm to touch on the right chao. No tenderness noted. No rash or erythema of visible areas Initial Vital Signs Initial Vital Signs: Vital Signs Temperature 98.1 F 02/27/24 16:55 Pulse Rate 101 H 02/27/24 16:55 Respiratory Rate 16 02/27/24 16:55 Blood Pressure 113/55 L 02/27/24 16:55 Pulse Oximetry 97 02/27/24 16:55 Oxygen Delivery Method Room Air 02/27/24 16:55 <Rina Cheema MD - Last Filed: 02/27/24 21:55> Initial Vital Signs Initial Vital Signs: Vital Signs Temperature 98.1 F 02/27/24 16:55 Pulse Rate 101 H 02/27/24 16:55 Respiratory Rate 16 02/27/24 16:55 Blood Pressure 113/55 L 02/27/24 16:55 Pulse Oximetry 97 02/27/24 16:55 Oxygen Delivery Method Room Air 02/27/24 16:55 Course <Joan Abreu PA-C - Last Filed: 02/27/24 19:00> Course Course Narrative: Did discuss this patient with the attending physician Dr. Cheema who remains on shift in the emergency department and will be taking over the patient's care, we agree reasonable to go ahead and do a CT scan abdomen pelvis for further evaluation. 1846 Patient's labs come back notable for leukocytosis 17.7, bacteria in the urine (straight cath). 1851 Orders Ordered: ED Orders 02/27/24 18:00 Urine Culture Stat Urine Microscopic Stat 02/27/24 18:20 Complete Blood Count AUTO DIFF Stat Comprehensive Metabolic Panel Stat Lipase Stat 02/27/24 18:47 CT abdomen pelvis w con Stat Acetaminophen (Acetaminophen 325 Mg Tablet) 1,000 mg PO Q6H PRN PRN Reason: Fever/Mild Pain (1-3) Docusate Sodium (Docusate 100 Mg Capsule) 200 mg PO DAILY KEVIN Enoxaparin Sodium (Enoxaparin 40 Mg/0.4 Ml Syringe) 40 mg SUBCUT DAILY KEVIN Furosemide (Furosemide 20 Mg Tablet) 20 mg PO DAILY KEVIN Gabapentin (Gabapentin 300 Mg Capsule) 600 mg PO DAILY KEVIN Metronidazole (Flagyl) 500 mg in 100 mls @ 100 mls/hr IV Q8H KEVIN Dextrose (D10w) 100 mls @ 1,200 mls/hr IV PRN PRN PRN Reason: Hypoglycemia Levofloxacin (Levaquin) 250 mg in 50 mls @ 50 mls/hr IV Q24H KEVIN Insulin Human Lispro (Insulin Lispro 100 Unit/Ml 3ml Vial) 0 unit SUBCUT ACHS KEVIN; Protocol Insulin Human NPH (Insulin Nph 100 Unit/Ml 10ml Vial) 10 unit SUBCUT BID [facility] Isosorbide Mononitrate (Isosorbide Mononitrate Er 30 Mg Tablet) 120 mg PO DAILY KEVIN Naloxone HCl (Naloxone 0.4 Mg/Ml Vial) 0.2 mg IV Q2MIN PRN PRN Reason: Opiate Reversal Ondansetron HCl (Ondansetron 4 Mg/2 Ml Inj) 4 mg IV Q4HR PRN PRN Reason: nausea Oxycodone HCl (Oxycodone Ir 5 Mg Tablet) 2.5 mg PO Q3H PRN PRN Reason: Pain, Moderate (4-6) Oxycodone HCl (Oxycodone Ir 10 Mg Tablet) 5 mg PO Q3H PRN PRN Reason: Pain, Severe (7-10) Discontinued Medications Hydromorphone HCl (Hydromorphone 0.5 Mg Inj) 0.5 mg IV NOW ONE Stop: 02/27/24 20:52 Last Admin: 02/27/24 21:11 Dose: 0.5 mg Documented By: NEY Ceftriaxone Sodium 1,000 mg/ (Sodium Chloride) 100 mls @ 200 mls/hr IV NOW ONE Stop: 02/27/24 18:59 Last Infusion: 02/27/24 20:39 Dose: Infused Documented By: Admin: 02/27/24 19:46 Dose: 200 mls/hr Documented By: NEY Metronidazole (Flagyl) 500 mg in 100 mls @ 100 mls/hr IV NOW ONE Stop: 02/27/24 21:26 Last Admin: 02/27/24 21:17 Dose: 100 mls/hr Documented By: NEY Ceftriaxone Sodium 1,000 mg/ (Sodium Chloride) 100 mls @ 200 mls/hr IV NOW ONE Stop: 02/27/24 20:30 Last Infusion: 02/27/24 21:16 Dose: Infused Documented By: Admin: 02/27/24 20:42 Dose: 200 mls/hr Documented By: NEY Levofloxacin (Levaquin) 500 mg in 100 mls @ 100 mls/hr IV Q24H [facility] Insulin Human NPH (Insulin Nph 100 Unit/Ml 10ml Vial) 28 unit SUBCUT BID [facility] Non-Formulary Medication (Docusate Sodium) 250 mg PO DAILY [facility] Non-Formulary Medication (Insulin Nph Isoph U-100 Human [Humulin N Nph Insulin Kwikpen]) 28 units SUBCUT BID KVEIN Ondansetron HCl (Ondansetron 4 Mg/2 Ml Inj) 4 mg IV NOW ONE Stop: 02/27/24 18:55 Last Admin: 02/27/24 19:32 Dose: 4 mg Documented By: NEY Vital Signs Vital signs: Vital Signs - 8 hr 02/27/24 16:55 02/27/24 18:48 02/27/24 19:57 Temperature 98.1 F Pulse Rate 101 H 97 H 98 H Respiratory Rate 16 22 Blood Pressure 113/55 L 132/58 L Pulse Oximetry 97 98 98 Oxygen Delivery Method Room Air Nasal Cannula Nasal Cannula Oxygen Flow Rate 2 2 02/27/24 19:58 02/27/24 19:58 02/27/24 20:00 Temperature Pulse Rate 101 H 100 H Respiratory Rate Blood Pressure 142/66 H Pulse Oximetry 98 98 Oxygen Delivery Method Nasal Cannula Nasal Cannula Oxygen Flow Rate 2 2 02/27/24 20:00 02/27/24 20:30 02/27/24 20:30 Temperature Pulse Rate 101 H Respiratory Rate Blood Pressure 144/65 H 136/62 Pulse Oximetry 98 Oxygen Delivery Method Nasal Cannula Oxygen Flow Rate 2 <Rina Cheema MD - Last Filed: 02/27/24 21:55> Orders Ordered: ED Orders 02/27/24 18:00 Urine Culture Stat Urine Microscopic Stat 02/27/24 18:20 Complete Blood Count AUTO DIFF Stat Comprehensive Metabolic Panel Stat Lipase Stat 02/27/24 18:47 CT abdomen pelvis w con Stat Acetaminophen (Acetaminophen 325 Mg Tablet) 1,000 mg PO Q6H PRN PRN Reason: Fever/Mild Pain (1-3) Docusate Sodium (Docusate 100 Mg Capsule) 200 mg PO DAILY [facility] Enoxaparin Sodium (Enoxaparin 40 Mg/0.4 Ml Syringe) 40 mg SUBCUT DAILY [facility] Furosemide (Furosemide 20 Mg Tablet) 20 mg PO DAILY [facility] Gabapentin (Gabapentin 300 Mg Capsule) 600 mg PO DAILY [facility] Metronidazole (Flagyl) 500 mg in 100 mls @ 100 mls/hr IV Q8H KEVIN Dextrose (D10w) 100 mls @ 1,200 mls/hr IV PRN PRN PRN Reason: Hypoglycemia Levofloxacin (Levaquin) 250 mg in 50 mls @ 50 mls/hr IV Q24H [facility] Insulin Human Lispro (Insulin Lispro 100 Unit/Ml 3ml Vial) 0 unit SUBCUT ACHS KEVIN; Protocol Insulin Human NPH (Insulin Nph 100 Unit/Ml 10ml Vial) 10 unit SUBCUT BID KEVIN Isosorbide Mononitrate (Isosorbide Mononitrate Er 30 Mg Tablet) 120 mg PO DAILY KEVIN Naloxone HCl (Naloxone 0.4 Mg/Ml Vial) 0.2 mg IV Q2MIN PRN PRN Reason: Opiate Reversal Ondansetron HCl (Ondansetron 4 Mg/2 Ml Inj) 4 mg IV Q4HR PRN PRN Reason: nausea Oxycodone HCl (Oxycodone Ir 5 Mg Tablet) 2.5 mg PO Q3H PRN PRN Reason: Pain, Moderate (4-6) Oxycodone HCl (Oxycodone Ir 10 Mg Tablet) 5 mg PO Q3H PRN PRN Reason: Pain, Severe (7-10) Discontinued Medications Hydromorphone HCl (Hydromorphone 0.5 Mg Inj) 0.5 mg IV NOW ONE Stop: 02/27/24 20:52 Last Admin: 02/27/24 21:11 Dose: 0.5 mg Documented By: NEY Ceftriaxone Sodium 1,000 mg/ (Sodium Chloride) 100 mls @ 200 mls/hr IV NOW ONE Stop: 02/27/24 18:59 Last Infusion: 02/27/24 20:39 Dose: Infused Documented By: Admin: 02/27/24 19:46 Dose: 200 mls/hr Documented By: NEY Metronidazole (Flagyl) 500 mg in 100 mls @ 100 mls/hr IV NOW ONE Stop: 02/27/24 21:26 Last Admin: 02/27/24 21:17 Dose: 100 mls/hr Documented By: NEY Ceftriaxone Sodium 1,000 mg/ (Sodium Chloride) 100 mls @ 200 mls/hr IV NOW ONE Stop: 02/27/24 20:30 Last Infusion: 02/27/24 21:16 Dose: Infused Documented By: Admin: 02/27/24 20:42 Dose: 200 mls/hr Documented By: NEY Levofloxacin (Levaquin) 500 mg in 100 mls @ 100 mls/hr IV Q24H [facility] Insulin Human NPH (Insulin Nph 100 Unit/Ml 10ml Vial) 28 unit SUBCUT BID [facility] Non-Formulary Medication (Docusate Sodium) 250 mg PO DAILY KEVIN Non-Formulary Medication (Insulin Nph Isoph U-100 Human [Humulin N Nph Insulin Kwikpen]) 28 units SUBCUT BID KEVIN Ondansetron HCl (Ondansetron 4 Mg/2 Ml Inj) 4 mg IV NOW ONE Stop: 02/27/24 18:55 Last Admin: 02/27/24 19:32 Dose: 4 mg Documented By: NEY Vital Signs Vital signs: Vital Signs - 8 hr 02/27/24 16:55 02/27/24 18:48 02/27/24 19:57 Temperature 98.1 F Pulse Rate 101 H 97 H 98 H Respiratory Rate 16 22 Blood Pressure 113/55 L 132/58 L Pulse Oximetry 97 98 98 Oxygen Delivery Method Room Air Nasal Cannula Nasal Cannula Oxygen Flow Rate 2 2 02/27/24 19:58 02/27/24 19:58 02/27/24 20:00 Temperature Pulse Rate 101 H 100 H Respiratory Rate Blood Pressure 142/66 H Pulse Oximetry 98 98 Oxygen Delivery Method Nasal Cannula Nasal Cannula Oxygen Flow Rate 2 2 02/27/24 20:00 02/27/24 20:30 02/27/24 20:30 Temperature Pulse Rate 101 H Respiratory Rate Blood Pressure 144/65 H 136/62 Pulse Oximetry 98 Oxygen Delivery Method Nasal Cannula Oxygen Flow Rate 2 MDM - Back Pain/Injury <Joan Abreu PA-C - Last Filed: 02/27/24 19:00> Differential Diagnosis Differential diagnosis: Likely other (UTI, pyelonephritis, constipation, diverticulitis; diabetic gastroparesis) Medical Records Attestation: I reviewed the patient's medical records. Lab Data Attestation: I reviewed the patient's lab results. 02/27/24 18:20 02/27/24 18:20 Labs: Lab Results 02/27/24 02/27/24 Range/Units 18:00 18:20 WBC 19.1 H (4.5-11.0) X10^3/uL RBC 4.24 (4.0-5.2) X10^6/uL Hgb 11.8 L (12.0-16.0) g/dL Hct 37.0 (36-46) % MCV 87.3 (80-100) fL MCH 27.8 (26-34) PG MCHC 31.9 (30-36) % RDW 16.1 H (11.6-14.8) % Plt Count 261 (150-400) X10^3/uL Neut % (Auto) 78.7 H (50-75) % Lymph % (Auto) 10.2 L (25-40) % [place] % (Auto) 9.8 (3-14) % Eos % (Auto) 0.9 L (2-4) % Baso % (Auto) 0.4 (0-2) % Neut # (Auto) 88962 H (6639-0823) /uL Lymph # (Auto) 1900 (2585-5635) /uL [place] # (Auto) 1900 H (0-900) /uL Eos # (Auto) 200 (0-450) /uL Baso # (Auto) 100 (0-100) /uL Sodium 135 L (137-145) mmol/L Potassium 3.8 (3.4-5.1) mmol/L Chloride 101 (98-107) mmol/L Carbon Dioxide 31 (22-32) mmol/L BUN 20 H (7-17) mg/dL Creatinine 0.51 L (0.52-1.04) mg/dL Estimated GFR > 60 (>60) mL/min BUN/Creatinine Ratio 39.2 H (6-22) Glucose 175 H (80-110) mg/dL Calcium 9.1 (8.4-10.2) mg/dL Total Bilirubin 0.7 (0.2-1.3) mg/dL AST 19 (14-36) IU/L ALT 19 (<35) IU/L Alkaline Phosphatase 80 (38-126) U/L Total Protein 6.3 (6.3-8.2) g/dL Albumin 3.1 L (3.5-5.0) g/dL Globulin 3.2 (1.7-4.1) g/dL Albumin/Globulin Ratio 1.0 (1.0-2.8) Lipase 33 (23-300) U/L Urine RBC None seen (0-5/HPF) Urine WBC 0-1/hpf (0-5/HPF) Ur Squamous Epith Cells 0-1 /hpf (0-5/HPF) Urine Bacteria Many (>30) H (None) Ur Culture Indicated? Specimen cultured Vol Urine Centrifuged 10ml (spun) Point of Care Testing Glucose POC 151 Urine Dip Bedside Urine Glucose 500 mg/dl Bedside Urine Bilirubin - Negative Bedside Urine Ketone - Negative Urine Specific [place] 1.020 Bedside Urine Occult Blood - Negative Bedside Urine pH 6.0 Bedside Urine Protein - Negative Bedside Urine Urobilinogen - Negative Bedside Urine Nitrite + Positive Bedside Urine Leukocytes - Negative Esterase MDM Narrative Medical decision making narrative: This is a 78-year-old woman insulin-dependent diabetic, morbidly obese with limited mobility who presents to the emergency department today with concern for 1 week of fevers, 2-3 weeks of low back pain, 2 months of constipation and right lower quadrant pain. She is mildly tachycardic at 99 on triage with a blood pressure of 113 systolic. She is afebrile. Labs obtained to include CBC, CMP, lipase, urine straight cath. On exam patient has some right lower quadrant tenderness, some epigastric tenderness and notable left flank/CVA tenderness with percussion. She wears depends and very suspicious she has a UTI, likely affecting her kidney(s) given left flank tenderness. However she is a generally unhealthy insulin-dependent diabetic and given her 2 months of changed stool habit with right lower quadrant abdominal pains as well as some epigastric discomfort on exam CT scan abdomen pelvis with contrast for further evaluation as to the cause of her symptoms. Patient had some mild nausea and Zofran was provided IV. Leukocytosis notable to 17.7, patient's urine also shows bacteria nitrate positive consistent with UTI. Ceftriaxone 1 g ordered. Care transferred to Dr. Cheema, ED attending remains on shift in the emergency department. <Rina Cheema MD - Last Filed: 02/27/24 21:55> Lab Data Labs: Lab Results 02/27/24 02/27/24 Range/Units 18:00 18:20 WBC 19.1 H (4.5-11.0) X10^3/uL RBC 4.24 (4.0-5.2) X10^6/uL Hgb 11.8 L (12.0-16.0) g/dL Hct 37.0 (36-46) % MCV 87.3 (80-100) fL MCH 27.8 (26-34) PG MCHC 31.9 (30-36) % RDW 16.1 H (11.6-14.8) % Plt Count 261 (150-400) X10^3/uL Neut % (Auto) 78.7 H (50-75) % Lymph % (Auto) 10.2 L (25-40) % [place] % (Auto) 9.8 (3-14) % Eos % (Auto) 0.9 L (2-4) % Baso % (Auto) 0.4 (0-2) % Neut # (Auto) 22361 H (1755-5343) /uL Lymph # (Auto) 1900 (7196-6996) /uL [place] # (Auto) 1900 H (0-900) /uL Eos # (Auto) 200 (0-450) /uL Baso # (Auto) 100 (0-100) /uL Sodium 135 L (137-145) mmol/L Potassium 3.8 (3.4-5.1) mmol/L Chloride 101 (98-107) mmol/L Carbon Dioxide 31 (22-32) mmol/L BUN 20 H (7-17) mg/dL Creatinine 0.51 L (0.52-1.04) mg/dL Estimated GFR > 60 (>60) mL/min BUN/Creatinine Ratio 39.2 H (6-22) Glucose 175 H (80-110) mg/dL Calcium 9.1 (8.4-10.2) mg/dL Total Bilirubin 0.7 (0.2-1.3) mg/dL AST 19 (14-36) IU/L ALT 19 (<35) IU/L Alkaline Phosphatase 80 (38-126) U/L Total Protein 6.3 (6.3-8.2) g/dL Albumin 3.1 L (3.5-5.0) g/dL Globulin 3.2 (1.7-4.1) g/dL Albumin/Globulin Ratio 1.0 (1.0-2.8) Lipase 33 (23-300) U/L Urine RBC None seen (0-5/HPF) Urine WBC 0-1/hpf (0-5/HPF) Ur Squamous Epith Cells 0-1 /hpf (0-5/HPF) Urine Bacteria Many (>30) H (None) Ur Culture Indicated? Specimen cultured Vol Urine Centrifuged 10ml (spun) Point of Care Testing Glucose POC 151 Urine Dip Bedside Urine Glucose 500 mg/dl Bedside Urine Bilirubin - Negative Bedside Urine Ketone - Negative Urine Specific [place] 1.020 Bedside Urine Occult Blood - Negative Bedside Urine pH 6.0 Bedside Urine Protein - Negative Bedside Urine Urobilinogen - Negative Bedside Urine Nitrite + Positive Bedside Urine Leukocytes - Negative Esterase MDM Narrative Medical decision making narrative: This is a 78-year-old woman insulin-dependent diabetic, morbidly obese with limited mobility who presents to the emergency department today with concern for 1 week of fevers, 2-3 weeks of low back pain, 2 months of constipation and right lower quadrant pain. She is mildly tachycardic at 99 on triage with a blood pressure of 113 systolic. She is afebrile. Labs obtained to include CBC, CMP, lipase, urine straight cath. On exam patient has some right lower quadrant tenderness, some epigastric tenderness and notable left flank/CVA tenderness with percussion. She wears depends and very suspicious she has a UTI, likely affecting her kidney(s) given left flank tenderness. However she is a generally unhealthy insulin-dependent diabetic and given her 2 months of changed stool habit with right lower quadrant abdominal pains as well as some epigastric discomfort on exam CT scan abdomen pelvis with contrast for further evaluation as to the cause of her symptoms. Patient had some mild nausea and Zofran was provided IV. Leukocytosis notable to 17.7, patient's urine also shows bacteria nitrate positive consistent with UTI. Ceftriaxone 1 g ordered. Care transferred to Dr. Cheema, ED attending remains on shift in the emergency department. Dr. Cheema. Care of patient is signed out to me by daytime physician tmd teacher assistant. Independent review of patient and chart performed by myself. Patient was elevated white blood cell count 19.1, CT of the abdomen and pelvis shows long segment wall thickening with edema and fat stranding. Differential includes infectious versus inflammatory colitis versus circumferential mass. There may also be a cystic component of the pancreatic head. With leukocytosis, fever, and CT findings IV antibiotics were ordered. Flagyl added to the previously administered Rocephin. Additional 1g Rocephin ordered since patient only received 1g and weighs nearly 100kg. Patient to be admitted for antibiotic treatment at this time. Discharge Plan Departure Patient Disposition: Admitted As Inpatient Clinical Impression: Colitis, Acute UTI, Leukocytosis Admit Date/Time: 02/27/24 20:52 Admit Provider: Romain Bush ED Sign-out <Rina Cheema MD - Last Filed: 02/27/24 21:55> Cosign ED Attending Javedature Attestation: I personally saw and evaluated this patient. Adjustment to PA plan made per results of labs and imaging.
[2024-02-27 18:26] LABS: RBC Urine None Seen (0-5/HPF); Urine Volume 10mL (spun); WBC Urine 0-1/HPF (0-5/HPF)
[2024-02-27 18:27] LABS: Bacteria Urine Many (>30); Culture Indicated Urine Specimen Cultured; Squamous Epithelial Cell Urine 0-1 /HPF (0-5/HPF)
[2024-02-27 18:33] LABS: Add Manual Diff / Slide Review NO; Basophils Absolute Auto 100 /uL (0-100); Basophils Percent Auto 0.4 % (0-2); Eosinophils Absolute Auto 200 /uL (0-450); Eosinophils Percent Auto 0.9 % (2-4); Hemoglobin 11.8 g/dL (12.0-16.0); Lymphocytes Absolute Auto 1900 /uL (1100-4500); Lymphocytes Percent Auto 10.2 % (25-40); Mean Corpuscular HGB Conc 31.9 % (30-36); Mean Corpuscular Hemoglobin 27.8 PG (26-34); Mean Corpuscular Volume 87.3 fL (80-100); Monocytes Absolute Auto 1900 /uL (0-900); Monocytes Percent Auto 9.8 % (3-14); Neutrophils Absolute Auto 15000 /uL (1500-7000); Neutrophils Percent Auto 78.7 % (50-75); Platelet Count 261 X10^3/uL (150-400); Red Blood Cell Count 4.24 X10^6/uL (4.0-5.2); Red Cell Distribution Width 16.1 % (11.6-14.8); White Blood Cell Count 19.1 X10^3/uL (4.5-11.0)
[2024-02-27 18:42] LABS: Alanine Aminotransferase 19 IU/L (<35); Albumin 3.1 g/dL (3.5-5.0); Alkaline Phosphatase 80 U/L (38-126); Aspartate Aminotransferase 19 IU/L (14-36); BUN Creatinine Ratio 39.2 (6-22); Bilirubin Total 0.7 mg/dL (0.2-1.3); Blood Urea Nitrogen 20 mg/dL (7-17); Calcium 9.1 mg/dL (8.4-10.2); Carbon Dioxide 31 mmol/L (22-32); Chloride 101 mmol/L (98-107); Estimated Glomerular Filt Rate > 60 mL/min (>60); Globulin 3.2 g/dL (1.7-4.1); Glucose 175 mg/dL (80-110); HEMOLYSIS < 15 (0-50); Lipase 33 U/L (23-300); Potassium 3.8 mmol/L (3.4-5.1); Sodium 135 mmol/L (137-145); Total Protein 6.3 g/dL (6.3-8.2)
--- NOTE | 2024-02-27 18:47 | DI.CT.S_ITS ---
PROCEDURE: CT ABDOMEN PELVIS W CON INDICATIONS: L CVA tender, RLQ and epigastric abd pn; constip x2 mo TECHNIQUE: After the administration of intravenous contrast, axial sections acquired from the lung bases to the pubic symphysis. Coronal and sagittal reformats were performed. For radiation dose reduction, the following was used: automated exposure control, adjustment of mA and/or kV according to patient size. COMPARISON: Tendon 11-18. FINDINGS: Image quality: Diagnostic. Lower Chest: Bibasilar dependent atelectasis is seen. Heart size is enlarged, no pericardial effusion. ABDOMEN: Liver: No solid mass. Possible cyst in lateral segment of left hepatic lobe series 2 image 36 and measures 1.3 cm in size. Gallbladder: Gallbladder is surgically absent. Biliary ducts: No biliary dilation. Pancreas: No ductal dilation. Well-circumscribed 1.6 cm hypodense area involving head of pancreas. Smaller 7 mm cyst is seen in anterior body of pancreas series 2, image 52. Spleen: Size is within normal limits. Adrenal Glands: No adrenal nodules. Kidneys and Ureters: No hydronephrosis. No solid mass. Small bilateral renal cortical cysts are seen. No complex renal cystic lesion which requires follow up. Stomach and Bowel: There is a long segment of circumferential wall thickening involving cecum and proximal ascending colon with significant narrowing of the lumen. Adjacent fat stranding is seen. This is best seen on series 4 image 112 and series 3, image 37. Appendix is visualized and is within normal limits. Mild to moderate fecal stasis in the rest of the colon is seen. No gastric or small bowel wall thickening. No abscess collection. Peritoneum: No abnormal intraperitoneal fluid. No free air. Ventral Wall: No significant ventral hernia. Abdominal Nodes: No retroperitoneal or mesenteric adenopathy by size criteria. Vessels: Aorta and inferior vena cava are normal in size. PELVIS: Pelvic Organs: Unremarkable. Bladder: Diffuse bladder wall thickening is seen, no definite bladder wall mass. Pelvic Nodes: No enlarged lymph nodes. Miscellaneous: No inguinal hernias are seen. Bones: No aggressive osseous abnormality. Deformity involving anterior lateral bilateral lower ribs are seen suggestive of old healed rib fractures. Degenerative disc disease throughout lower thoracic and lumbar spine is seen. IMPRESSION: 1. Long segment of circumferential wall thickening involving cecum and ascending colon with with edema and surrounding fat stranding. Markedly narrowed ascending colon lumen is seen. Finding is concerning for infectious inflammatory colitis versus circumferential mass involving ascending colon, suggest GI correlation and possible endoscopic evaluation. 2. No other area of abnormal bowel wall thickening. Moderate constipation. Appendix is visualized and is within normal limits. There is no free fluid or free air. No bowel obstruction. 3. Likely hepatic cyst as above which was also described on previous CT study in 2018. 4. Cystic areas involving pancreatic head and body as described above which may represent IPMN. Non urgent MRI of abdomen pancreatic protocol follow-up is recommended. 5. No obstructing renal stones or hydronephrosis. Bilateral small renal cortical cysts. Dictated by: Jorge Lemon M.D. on 02/27/2024 at 20:02 Approved by: Jorge Lemon M.D. on 02/27/2024 at 20:09
[2024-02-27] MEDS: ONDANSETRON 4 MG/2 ML INJ IV (19:32)
[2024-02-27] MEDS: cefTRIAXone 1,000 MG in SODIUM CHLORIDE 0.9% 100 ML 200 MG IV ×2 (19:46→20:42)
--- NOTE | 2024-02-27 20:56 | PC.NURSE ---
Patient is on 2L NC at baseline, has been tachycardic while with us so this RN placed her on the cardiac monitors
[2024-02-27] MEDS: HYDROMORPHONE 0.5 MG INJ IV (21:11)
[2024-02-27] MEDS: metroNIDAZOLE 500 MG/100 ML PIGGYBACK 100 MG IV (21:17)
--- NOTE | 2024-02-27 21:18 | PM.HP.1 ---
History of Present Illness History of Present Illness Date Patient Seen: 02/27/24 Time Patient Seen: 23:00 Chief complaint: constipated 2months, back px, fever 101-102F Narrative: 78 y/o with PMH of impaired mobility, wheelchair-bound, obesity, HTN, DM, HLD, presented with abdominal pain, fever with CT abdomen showing extensive colitis with significant lumen narrowing, UA with UTI, leukocytosis. BC, UC pending, recieved Rocephin and Flagyl in the ED. Not septic. Admitted to medicine for IV abx with colitis and UTI. [facility] Medical History (Updated 02/27/24 @ 21:35 by Romain Rodriguez MD) Insulin dependent diabetes mellitus Dyslipidemia Hypertension Surgical History H/O bilateral salpingo-oophorectomy H/O: hysterectomy H/O hemorrhoidectomy Social History household members: spouse Smoking Status: Never smoker alcohol intake: current Meds Home Medications and Allergies Home Medications Medication Instructions Recorded Confirmed Type felodipine 10 mg tablet,extended 1 tab PO DAILY ##0 03/01/16 02/27/24 History release 24 hr duloxetine 60 mg capsule,delayed 120 mg PO DAILY 03/11/18 02/27/24 History release insulin NPH isoph U-100 human 100 25 units SUBCUT BID 03/11/18 02/27/24 History unit/mL (3 mL) subcutaneous pen (Humulin N NPH U-100 Insulin KwikPen) insulin lispro 100 unit/mL 1 dose SUBCUT DIRECTED 03/11/18 02/27/24 History subcutaneous pen (Humalog KwikPen (U-100) Insulin) albuterol sulfate 90 mcg/actuation 2 puff inhalation Q4H 02/27/24 02/27/24 History aerosol inhaler atorvastatin 40 mg tablet 40 mg PO DAILY 02/27/24 02/27/24 History gabapentin 300 mg capsule 600 mg PO DAILY 02/27/24 02/27/24 History lisinopril 20 mg tablet 40 mg PO DAILY 02/27/24 02/27/24 History Allergies Allergy/AdvReac Type Severity Reaction Status Date / Time diclofenac [DICLOFENAC] Allergy Severe HIVES & Verified 02/27/24 16:54 ALMOST TO THE POINT OF ANAPHYLACTIC SHOCK. morphine [MORPHINE] Allergy Severe CARDIAC Verified 02/27/24 16:54 ARREST PER PT ibuprofen [IBUPROFEN] Allergy Unknown HIVES Verified 02/27/24 16:54 misoprostol [MISOPROSTOL] Allergy Unknown UNKNOWN Verified 02/27/24 16:54 potassium chloride Allergy Unknown UNKNOWN Verified 02/27/24 16:54 [POTASSIUM CHLORIDE] sodium bicarbonate Allergy Unknown UNKNOWN Verified 02/27/24 16:54 [SODIUM BICARBONATE] sodium sulfate Allergy Unknown UNKNOWN Verified 02/27/24 16:54 [SODIUM SULFATE] Review of Systems Review of Systems Narrative: poor historian Constitutional Comments: fever Cardiovascular Comments: w/o chest pain Respiratory Comments: on 2 L of oxygen chronically Gastrointestinal Comments: daily hard stool, w/o melena or blood abdominal tenderness - lower quadrants Genitourinary Comments: incontinent, overactive bladder, history of botox injections Musculoskeletal Comments: low back pain Exam Vital Signs (past 8 hours): - 02/27/24 16:55 02/27/24 18:48 02/27/24 19:57 Temperature 98.1 F Pulse Rate 101 H 97 H 98 H Respiratory Rate 16 22 Blood Pressure 113/55 L 132/58 L Pulse Oximetry 97 98 98 Oxygen Delivery Method Room Air Nasal Cannula Nasal Cannula Oxygen Flow Rate 2 2 02/27/24 19:58 02/27/24 19:58 02/27/24 20:00 Temperature Pulse Rate 101 H 100 H Respiratory Rate Blood Pressure 142/66 H Pulse Oximetry 98 98 Oxygen Delivery Method Nasal Cannula Nasal Cannula Oxygen Flow Rate 2 2 02/27/24 20:00 02/27/24 20:30 02/27/24 20:30 Temperature Pulse Rate 101 H Respiratory Rate Blood Pressure 144/65 H 136/62 Pulse Oximetry 98 Oxygen Delivery Method Nasal Cannula Oxygen Flow Rate 2 Oxygen Delivery Method Nasal Cannula Oxygen Flow Rate 2 Narrative Exam Narrative: in no distress, Cosme at bedside HENMT Other: NC with 2 L of oxygen Neck Other: supple Resp Other: normal respiratory effort Cardio Other: RRR GI Other: not distended tender to palpation Extrem Other: chronic b/l lower leg wounds Psych Other: appropriate mood Objective Labs 02/28/24 04:22 02/28/24 04:22 Labs: Laboratory Results - last 24 hr 02/27/24 02/27/24 18:00 18:20 WBC 19.1 H RBC 4.24 Hgb 11.8 L Hct 37.0 MCV 87.3 MCH 27.8 MCHC 31.9 RDW 16.1 H Plt Count 261 Neut % (Auto) 78.7 H Lymph % (Auto) 10.2 L [place] % (Auto) 9.8 Eos % (Auto) 0.9 L Baso % (Auto) 0.4 Neut # (Auto) 89263 H Lymph # (Auto) 1900 [place] # (Auto) 1900 H Eos # (Auto) 200 Baso # (Auto) 100 Sodium 135 L Potassium 3.8 Chloride 101 Carbon Dioxide 31 BUN 20 H Creatinine 0.51 L Estimated GFR > 60 BUN/Creatinine Ratio 39.2 H Glucose 175 H Calcium 9.1 Total Bilirubin 0.7 AST 19 ALT 19 Alkaline Phosphatase 80 Total Protein 6.3 Albumin 3.1 L Globulin 3.2 Albumin/Globulin Ratio 1.0 Lipase 33 Urine RBC None seen Urine WBC 0-1/hpf Ur Squamous Epith Cells 0-1 /hpf Urine Bacteria Many (>30) H Ur Culture Indicated? Specimen cultured Vol Urine Centrifuged 10ml (spun) Assessment & Plan Assessment and plan (1) Colitis: Status: Acute (2) Urinary tract infection: Status: Inactive (3) Insulin dependent diabetes mellitus: Status: Acute (4) Impaired mobility: Status: Acute (5) DJD (degenerative joint disease), lumbar: Status: Acute (6) Hypertension: Status: Acute (7) Dyslipidemia: Status: Acute Assessment & Plan narrative: Colitis - Flagyl, Levaquin - outpatient colonoscopy in several weeks for suspected mass - she had several colonoscopies with polypectomies in the past - apart from worsening constipation and abdominal tenderness, w/o weight loss or GI bleed - full liquid diet UTI - Levaquin Impaired Mobility - WC-bound, PT assessment DM - insulin, CCD HTN - home Lisinopril and felodipine on hold CAD - Imdur, statin Chronic Hypoxemic respiratory Failure - restrictive lung disease, likely obesity hypoventilation - oxygen 2 L Depression - Cymbalta Chronic Leg Wounds - wound care HLD - statin at home DVT prophylaxis - Lovenox Time-Based Coding :: [TOTAL MINUTES] spent with patient and on the chart (including review of chart, obtaining history, exam, reviewing outside data, placing orders, documenting exam and treatment plan, and counseling patient) on [DATE].
[2024-02-28 05:03] LABS: Add Manual Diff / Slide Review NO; Basophils Absolute Auto 100 /uL (0-100); Basophils Percent Auto 0.3 % (0-2); Eosinophils Absolute Auto 300 /uL (0-450); Eosinophils Percent Auto 1.6 % (2-4); Hematocrit 37.3 % (36-46); Lymphocytes Absolute Auto 1500 /uL (1100-4500); Mean Corpuscular HGB Conc 32.3 % (30-36); Mean Corpuscular Hemoglobin 28.4 PG (26-34); Mean Corpuscular Volume 87.9 fL (80-100); Monocytes Absolute Auto 1400 /uL (0-900); Monocytes Percent Auto 8.6 % (3-14); Neutrophils Absolute Auto 13300 /uL (1500-7000); Neutrophils Percent Auto 80.5 % (50-75); Platelet Count 263 X10^3/uL (150-400); Red Blood Cell Count 4.24 X10^6/uL (4.0-5.2); Red Cell Distribution Width 16.5 % (11.6-14.8); White Blood Cell Count 16.5 X10^3/uL (4.5-11.0)
[2024-02-28 05:16] LABS: BUN Creatinine Ratio 37.5 (6-22); Blood Urea Nitrogen 15 mg/dL (7-17); Calcium 8.7 mg/dL (8.4-10.2); Carbon Dioxide 31 mmol/L (22-32); Chloride 101 mmol/L (98-107); Estimated Glomerular Filt Rate > 60 mL/min (>60); Glucose 223 mg/dL (80-110); HEMOLYSIS < 15 (0-50); Potassium 4.1 mmol/L (3.4-5.1); Sodium 135 mmol/L (137-145)
[2024-02-28] MEDS: metroNIDAZOLE 500 MG/100 ML PIGGYBACK 100 MG IV ×3 (06:12→21:25)
--- NOTE | 2024-02-28 06:41 | PC.NURSE ---
pt arrived from ER via stretcher, max assist to slide over to bed, pt states she does not ambulate but uses a wheelchair at home and remains on the couch recliner, A&Ox3, forgetful and often repeats herself, weakness bilat lower extrem, VSS, afebrile, c/o mild pain to back, lungs clear, O2 sats >92% on 1L NC which she uses at home, abd round soft with BS, incont of small soft semiformed stool and urine, pt states she's been constipated for 2 months but having daily hard ball stools, denies nausea, baseline incont of urine, skin warm, redness noted under bilat breast folds, ulcer healing on R chao wrapped in dsg seen biweekly at home for changes, L chao red and recovering from cellulitus, small dsg to L inner thigh/buttock intact from skin sore, periph IV site patent, call mtz within reach, meds and labs as ordered, at bedside overnight
[2024-02-28] MEDS: levoFLOXacin 250 MG/50 ML PIGGYBACK 50 MG IV (08:10)
[2024-02-28] MEDS: FUROSEMIDE 20 MG TABLET PO (08:11)
[2024-02-28] MEDS: DOCUSATE 100 MG CAPSULE 200 MG PO (08:11)
[2024-02-28] MEDS: DULOXETINE 30 MG CAPSULE 120 MG PO (08:11)
[2024-02-28] MEDS: ISOSORBIDE MONONITRATE ER 30 MG TABLET 120 MG PO (08:11)
[2024-02-28] MEDS: GABAPENTIN 300 MG CAPSULE 600 MG PO (08:11)
[2024-02-28] MEDS: ENOXAPARIN 40 MG/0.4 ML SYRINGE SUBCUT ×2 (08:11→21:20)
[2024-02-28] MEDS: OXYCODONE IR 5 MG TABLET PO ×3 (08:12→21:36)
[2024-02-28] MEDS: INSULIN LISPRO 100 UNIT/ML 3ML VIAL SUBCUT ×3 (08:12→16:52)
[2024-02-28] MEDS: INSULIN NPH 100 UNIT/ML 10ML VIAL 10 UNIT SUBCUT (10:10)
--- NOTE | 2024-02-28 11:31 | PT.IIE ---
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 (02/27/24) Surgical History (Last Reviewed 02/27/24 @ 21:23 by Romain Rodriguez MD) H/O bilateral salpingo-oophorectomy H/O hemorrhoidectomy H/O: hysterectomy Medical History (Last Updated 02/27/24 @ 21:34 by Romain Rodriguez MD) Dyslipidemia Hypertension Insulin dependent diabetes mellitus Physical Therapy Inpatient Evaluation/Re-Eval M1 PT/OT-IP Prior Functional Status Start: 02/28/24 08:42 Freq: NEEDED Status: Active Protocol: Document 02/28/24 10:21 MB (Rec: 02/28/24 11:31 MB [id number]) Medical Review Prior Functional Status Medical History Reviewed Yes Communication Unsure baseline diet, pt with some confusion in history taking today Mobility and Gait SPT recliner to w/c only, pt states she rolls to her left side to have BM while lying on the couch and cleans her. It is unclear what they are doing about wound care on her sacral/glute area and pt is allowed to remain urinary continent without practice getting to BSC. changes sheets 4x/day and states he is just barely managing all tasks as far as pt and housework and he seems overwhelmed during conversation. It sounds like one HH provider is in the home and pt con't to state OT, but unsure if this is the case. She states OT is helping to teach her to walk but they are not using AD and only using gait belt. W/c is narrow for pt's body girth. pushes pt to sink in kitchen and she stands so he can assist in washing her hair and he assists with sponge baths. Activities of Daily Living and IADL's See above Social History Household Members spouse Living Arrangements House Number of Floors (Floors) One Floor Number of Stairs To Enter/Railing? No steps to enter Home Environment Standard Height Toilet,Walk in Shower,Built-In Shower Seat Home Equipment Front Wheel Walker,Manual Wheelchair,Bedside Commode, Hand Held Shower,Grab Bars In Shower Employment Status Retired Additional Social History Comment O2 as needed at home M2 PT-IP Current Condition Start: 02/28/24 08:42 Freq: NEEDED Status: Active Protocol: Document 02/28/24 10:21 MB (Rec: 02/28/24 11:31 MB [id number]) Physical Therapy Current Condition Current Condition Evaluation Date 02/28/24 Treatment Diagnosis UTI, constipation, right lower leg and buttocks wounds M3 PT-IP Subjective Start: 02/28/24 08:42 Freq: NEEDED Status: Active Protocol: Document 02/28/24 10:21 MB (Rec: 02/28/24 11:31 MB [id number]) Subjective Physical Therapy Visit Type Type Initial Evaluation Visit Start Time 10:21 Visit Stop Time 10:55 Number of TRAUMA DOCTOR Visits 0 Physical Therapy Visit Comments Patient Comments Pt is agreeable to PT. Therapy Pain Assessment Pain When Pain Assessed At Rest Pain Present Pain Present Denied Pain M4 PT-IP Mobility and Gait Start: 02/28/24 08:42 Freq: NEEDED Status: Active Protocol: Document 02/28/24 10:21 MB (Rec: 02/28/24 11:31 MB [id number]) PT-Bed Mobility Assessment Supine to Sit Supine to Sit Standby Assistance,1 Person Assistance,Head of Bed Elevated,Bedrails Sit to Supine Sit to Supine Standby Assistance,1 Person Assistance,Bedrails Scooting Scooting to Edge of Bed Contact Guard Assistance Scooting Up and Down in Bed Contact Guard Assistance PT-Transfer Assessment Transfers Transfer Destination Wheelchair Transfer Technique Stand Step Pivot Transfer Ability Level of Assist Contact Guard Assistance,1 Person Assistance,Use of Upper Extremities Comments Mobility Comments HOB increased and O2 donned, 1L and O2 sats are in the mid to high 90s and HR in the low 100s. Pt is able to scoot to EOB with increased time, gauze on right lower leg, PT max A to don shoes and PT dons gait belt and pt performs SPT to the right to w/c with hands reaching for w/c and then SPT back to bed with hands reaching to the left to the bed, left SPT back to bed. PT-Balance Assessment Sitting Balance and Reactions Static Sitting Balance Ability Good Dynamic Sitting Balance Ability Good Comments Other Balance Tests/Deviations/Treatment Pt does not perform true STS : or standing upright today and he only performs SPT M5 PT-IP Objective Assessments Start: 02/28/24 08:42 Freq: NEEDED Status: Active Protocol: Document 02/28/24 10:21 MB (Rec: 02/28/24 11:31 MB [id number]) Orientation Orientation/Cognition Level of Alertness Confusional State Safety Awareness Decreased Safety Awareness Memory Description Short Term Impaired,Chcf Impaired Comments A&O to self and pt has trouble answering history questions and , Cosme, often corrects Gross Range of Motion Upper Extremity ROM Impairments Defer to OT and order to be placed by SW Lower Extremity ROM Assessment Bilaterally Impaired Strength Lower Extremity Strength Assessment Bilaterally Impaired Comments Strength Comments B LE weakness, redness and skin breakdown on the right leg Coordination Assessment Gross Coordination Gross Coordination Impaired Assessment Coordination Comments Unable to reach feet to fully don shoes Sensation Assessment Comments Sensation Comments Pt denies paresthesias Muscle Tone Muscle Tone WNL Yes M6 PT-IP Treatment Start: 02/28/24 08:42 Freq: NEEDED Status: Active Protocol: Document 02/28/24 10:21 MB (Rec: 02/28/24 11:31 MB [id number]) Physical Therapy Treatment Education Education Provided Safety Other Treatments Other Treatment Performed PT provides encouragement and education about mobility options as far as using their gait belt to assist with SPT, benefits of toileting routine such as getting up to the BSC every hour to work on full bladder elimination and working on bladder holding urine against gravity with standing, possible benefits of PureWick at night, importance of mobility to assist with bowel and bladder habits, concerns for wound care in setting of incontinence and currently not trying to get up to BSC to toilet. Pt appears receptive and appears overwhelmed with education today. M7 PT-IP Assessment and Plan Start: 02/28/24 08:42 Freq: NEEDED Status: Active Protocol: Document 02/28/24 10:21 MB (Rec: 02/28/24 11:31 MB [id number]) PT Summary Assessment and Plan Potential Rehabilitation Potential Fair Status of Condition at Evaluation Evolving Summary Impairments Pain,ROM,Strength,Balance, Coordination,Sensation, Cognition,Bed Mobility, Transfers,Activity Tolerance Progress Towards Goals Slow Progress - Other Assessment Summary Pt is a 78 y/o female presenting with UTI, constipation and wounds in setting of 2 or greater than 2 years of w/c mobility and not attempting to get up to the toilet or BSC to toilet. , Cosme, present during the assessment and he reports assisting pt with all tasks at home and he appears overwhelmed and that they might need help at home. Pt has reported buttocks area wound and right leg has kerlix around it. They report pt has constant urinary incontinence that has stress induced component to it and changes bedding 3-4 times a day in the couch recliner in which pt stays. She states she rolls to her left side to have small BM. Pt requires CGA for SPT to right and to left today. states pt needs to hold onto her at home and he does not like to use the gait belt. Extensive education started today. Recommend increased help for pt and at home, services including PT, OT, nsg, aide and SW. Goals Transfer Goal Standby Assistance Other Goals No bed mobility goal as pt does not sleep in bed. Goals: SPT right and left to bed<>w/c<>BSC with SBA and practice with as he is available. Gait 10' with RW and CGA to improve mobility at home and allow access to toilet. Days to Meet Goals 5 Frequency of Treatment Frequency Of Treatment Once a Day Treatment Plan Physical Therapy Treatment Plan Bed Mobility Training,Transfer Training,Gait Training, Therapeutic Exercise,Balance Retraining,Discharge Planning, Hot or Cold Pack,Neuromuscular Re-ed,Coordination Retraining ,Manual Therapy Precautions Other Precautions Urinary incontinence Recommendations To Nursing Amount of Assist Needed 1 Person Assist Discharge Recommendations PT Discharge Recommendations Home with 24/ Assist Available,Home Health Other Discharge Recommendations HHPT, OT, nsg, aide and SW Transportation Needs at Discharge Private Vehicle
[2024-02-28 12:00] VITALS: BP 94/46; PULSE 102; RESP 16; TEMP 36.6; O2SAT 98
--- NOTE | 2024-02-28 12:24 | OT.IP.EVAL ---
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 (02/27/24) Past Medical History (Last Updated 02/27/24 @ 21:34 by Romain Rodriguez MD) Dyslipidemia Hypertension Insulin dependent diabetes mellitus Surgical History (Last Reviewed 02/27/24 @ 21:23 by Romain Rodriguez MD) H/O bilateral salpingo-oophorectomy H/O hemorrhoidectomy H/O: hysterectomy Occupational Therapy Inpatient Evaluation/Re-Eval M1 PT/OT-IP Prior Functional Status Start: 02/28/24 08:42 Freq: NEEDED Status: Active Protocol: Document 02/28/24 16:07 CGR (Rec: 02/28/24 16:27 CGR [id number]) Medical Review Prior Functional Status Medical History Reviewed Yes Communication Unsure baseline diet, pt with some confusion in history taking today Mobility and Gait SPT recliner to w/c only, pt states she rolls to her left side to have BM while lying on the couch and cleans her. It is unclear what they are doing about wound care on her sacral/glute area and pt is allowed to remain urinary continent without practice getting to BSC. changes sheets 4x/day and states he is just barely managing all tasks as far as pt and housework and he seems overwhelmed during conversation. It sounds like one HH provider is in the home and pt con't to state OT, but unsure if this is the case. She states OT is helping to teach her to walk but they are not using AD and only using gait belt. W/c is narrow for pt's body girth. pushes pt to sink in kitchen and she stands so he can assist in washing her hair and he assists with sponge baths. Activities of Daily Living and IADL's Pt states that her requests that she not transfer to the BSC for uriantion and BM because of risk of being incontinent on the way to the [facility]. Therefore, pt has been having BM laying on her side on couch/bed. Pt states that her helps her with all aspects of ADLs. Social History Household Members spouse Living Arrangements House Number of Floors (Floors) One Floor Number of Stairs To Enter/Railing? No steps to enter Home Environment Standard Height Toilet,Walk in Shower,Built-In Shower Seat Home Equipment Front Wheel Walker,Manual Wheelchair,Bedside Commode, Hand Held Shower,Grab Bars In Shower Employment Status Retired Additional Social History Comment O2 as needed at home on 2L M2 OT-IP Current Condition Start: 02/28/24 16:06 Freq: Status: Active Protocol: Document 02/28/24 16:07 CGR (Rec: 02/28/24 16:27 CGR [id number]) Occupational Therapy Current Condition Current Condition Evaluation Date 02/28/24 Treatment Diagnosis UTI, constipation Diagnosis Onset Date 02/27/24 M3 OT- IP Subjective and Pain Start: 02/28/24 16:06 Freq: Status: Active Protocol: Document 02/29/24 12:30 [facility] (Rec: 02/29/24 12:39 [facility] [id number]) OT- Subjective Occupational Therapy Visit Type Type Treatment Note Visit Start Time 12:00 Visit Stop Time 12:24 Occupational Therapy Visit Comments Patient Comments Pt not wanting to get up at this time. Patient/Caregiver Goals TO go home. OT Pain Assessment Pain When Pain Assessed At Rest Pain Present Pain Present Denied Pain M4 OT- IP ADL's Start: 02/28/24 16:06 Freq: Status: Active Protocol: Document 02/28/24 16:07 CGR (Rec: 02/28/24 16:27 R [id number]) OT [id number] Comments OT Self-Feeding Comments not meal time OT ADL-Grooming Comments OT Grooming Comments pt declined, states that she performed earlier in the day. OT ADL-Oral Care Comments Oral Care Comments pt declined, states that she performed earlier in the day. OT ADL-Dressing General Eval Lower Body Dressing Ability Total Assistance Areas Needing Assistance Socks Comments OT Dressing Comments supine in bed, pt states that her performs at baseline. OT ADL-Toileting General Evaluation Toileting Ability Total Assistance Comments OT Toileting Comments Pt laying on side having BM earlier in day when OT attempted to see pt and required nursing assist in cleaning up. Per manager nursing, she offered the BSC and the patient declined. Pt with periwick for urination . OT ADL-Bathing Comments OT Bathing Comments not performed, discussed pt's home ability and pt states that she was told not to shower because of her wound and only do sponge baths till the wound is healed. M5 OT- IP IADL's Start: 02/28/24 16:06 Freq: Status: Active Protocol: Document 02/28/24 16:07 CGR (Rec: 02/28/24 16:27 CGR [id number]) OT-Instrumental Activities of Daily Living Deficits IADL Deficits Identified Deficits Home Safety Awareness Awareness of Need for Assistance at Home Decreased Awareness Ability to Problem Solve Emergency Unable to Problem Solve Situations Medication Management Medication Management Caregiver Administers Money Management Money Management Caregiver Provides Assistance Meal Preparation Meal Preparation Caregiver Provides Assist Bondactor Machine Operator Bondactor Machine Operator Caregiver Provides Assist Driving Driving Comments Pt does not drive. 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 Pt not at her baseline and feels that she is not thinking as well as prior. Pt did not know the day of week, able to recall 4/ 5 objects after time passed, not able to draw the numbers of the clock symmetrically and draw the hour hand correctly after time given, and pt able to answer 2/4 questions right after paragraph read. Pt suggested to be sure to douebl check if doing the bills/meds and to have her assist. Pt havign difficulty to focus at time durign SLUMS. Cognitive Comments Cognitive Assessment Comments 20/30 on the SLUMS M7 OT- IP Mobility and Balance Start: 02/28/24 16:06 Freq: Status: Active Protocol: Document 02/28/24 16:07 CGR (Rec: 02/28/24 16:27 CGR [id number]) OT- Bed Mobility Assessment Supine to Sit Supine to Sit Assist Standby Assistance,Head of Bed Elevated,Bedrails Scooting Scooting to Edge of Bed Standby Assistance,Head of Bed Elevated,Bedrails OT-Transfer Assessment Sit to and From Stand Sit to and from Stand Contact Guard Assistance,1 Person Assistance Transfers Transfer Ability Contact Guard Assistance,1 Person Assistance Technique Transfer Destination Bed,Chair Transfer Technique Stand Step Pivot Devices Transfer Assistive Devices Gait Belt,Front Wheeled Walker Comments Mobility Comments Pt tranfered from bed to chair with CGA. O2 stats decreased from 96 to 90 on room air with transfer. OT- Gait Assessment Comments Gait Ability Comments not performed OT- Balance Assessment Sitting Balance and Reactions Static Sitting Balance Ability Good Dynamic Sitting Balance Ability Good M8 OT- IP Objective Assessments Start: 02/28/24 16:06 Freq: Status: Active Protocol: Document 02/28/24 16:07 CGR (Rec: 02/28/24 16:27 CGR [id number]) OT Gross Range of Motion Upper Extremity Range of Motion Assessment Bilaterally Impaired ROM Impairments shld pain Of note, pt has different arthritic looking deformations to her hands. OT Strength Comments Strength Comments pt states pain with arm MMT, hands 4-/5 OT- Coordination Assessment Upper Extremity Finger to Nose Test Within Functional Limits Finger Tapping Test Within Functional Limits OT Sensation Assessment Edema Edema Absent M9 OT- IP Assessment and Plan Start: 02/28/24 16:06 Freq: Status: Active Protocol: Document 02/29/24 12:30 [facility] (Rec: 02/29/24 12:39 [facility] [id number]) OT Summary Assessment and Plan Potential Rehabilitation Potential Good Analytic Complexity at Evaluation High Summary OT Impairments Range of Motion,Strength, Balance,Functional Cognition, Functional Mobility,Grooming, Dressing,Toileting,Bathing, Toilet Transfers,Shower Transfers,Activity Tolerance Progress Towards Goals Progressing Toward Goals Assessment Summary Pt looking to go home with home health at this time. Pt scored 20/30 on the SLUMS and realizes that she is not thinking as well as usual. Suggested pt double check when doing bills/meds and also have her assist. Goals Grooming Goal Independent Dressing Goal Independent,Match Marker,Sock Aid Toileting Goal Independent,Toilet Paper Aid Bathing Goal Minimal Assistance Toilet Transfer Goal Independent Shower Transfer Goal Minimal Assistance Days to Meet Goals 7 Frequency of Treatment Other frequency 5x a week Treatment Plan OT Treatment Plan ADL Training,Functional Cognition Training,Functional Mobility,Patient/Family Education,Discharge Planning Discharge Recommendations OT Discharge Recommendations Home with 24/7 Assist Available,Home Health Transportation Needs at Discharge Private Vehicle
--- NOTE | 2024-02-28 13:28 | CM.DANOTE ---
Initial DCP Assessment Note Pt is a 78 yo female, resident of [place], arrives with complaint of persistent constipation with abd pain and fever. Patient admitted for management of colitis and UTI. Patient reportedly scheduled for an outpatient colonoscopy in a few weeks due to a mass seen on imaging. [facility] has approved INPT status according to JOLYNN SONG. PCP: Debbie Napoles Payer: [facility] Reviewed chart, met in room with patient, spouse and PT Dolores. Patient and sp provide history; some mild confusion noted from patient. Patient lives in [place] with sp and is dependent for all ADLs. Patient/sp have two sons in the [place] area that they do not see often. Patient has been wheelchair dependent for at least 3 months, lives in her couch recliner. Patient wears depends to catch urine and lays on her side on the couch or in bed for bowel movements. Patient reports bowel movements are chronically small and hard. Patient is 5ft 220 lbs, has wounds on both legs and reports a sacral ulcer. Patient has [facility] for wound care. Patient denies hx of SNF or in home caregivers. This REPAIR TECH suggested that spouse consider in home caregivers to assist him with the care of patient and sp states he will consider. Will plan to drop off longwall foreman care/in home care resources. Therapy has assessed and patient appears to be at her functional baseline. Home w/assist and HH recommended. LISA Morris Coordinator has agreed to send completed F2F and HH order to [facility]. Requesting HH RN/PT/OT/LOGGING CONTRACTOR/REPAIR TECH. Plan: Discharge home with spouse to assist, [facility] services, senior care care resources provided to spouse Cosme. BEENA Roman Discharge Planning/Care Management Discharge Assessment Start: 02/28/24 13:20 Freq: Status: Active Protocol: Document 02/28/24 13:20 THAI (Rec: 02/28/24 13:28 THAI [id number]) Discharge Planning Assessment Assigned Microscopist BEENA Canseco DPOA/Assigned Designee Name Cosme Lundberg samuel Contact Information [phone] Advance Directives? No History Provided By Patient,Significant Other, Medical Record Prior Living Arrangements House Household Members spouse Type of transporation used prior to Relies on Others admit Independent with ADL's No Is patient alert and oriented? Yes: Some confusion noted Needs Assistance With Bathing,Grooming,Meal Prep, Toileting,Managing Medications ,Home Chores / Shopping Caregiver for Another No Community Services used prior to Home Health Aid,Home Health admission: Nurse Comment NICCI lemos Patient/Family Preference Home with Home Health Barriers to Discharge No Comment Patient has many chronic issues and has been recliner and wheelchair dependent for months. Discharge Plan Home with Home Health Transportation Arrangement Spouse Referrals Initiated Home Health Additional Comment Patient would like to have [facility] resumed. If patient plan is home with home health Yes : Has signed face to face form been completed?
--- NOTE | 2024-02-28 15:45 | OT.IP.EVAL ---
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 (02/27/24) Past Medical History (Last Updated 02/27/24 @ 21:34 by Romain Rodriguez MD) Dyslipidemia Hypertension Insulin dependent diabetes mellitus Surgical History (Last Reviewed 02/27/24 @ 21:23 by Romain Rodriguez MD) H/O bilateral salpingo-oophorectomy H/O hemorrhoidectomy H/O: hysterectomy Occupational Therapy Inpatient Evaluation/Re-Eval M1 PT/OT-IP Prior Functional Status Start: 02/28/24 08:42 Freq: NEEDED Status: Active Protocol: Document 03/02/24 12:06 CGR (Rec: 02/28/24 16:27 CGR [id number]) Medical Review Prior Functional Status Medical History Reviewed Yes Communication Unsure baseline diet, pt with some confusion in history taking today Mobility and Gait SPT recliner to w/c only, pt states she rolls to her left side to have BM while lying on the couch and cleans her. It is unclear what they are doing about wound care on her sacral/glute area and pt is allowed to remain urinary continent without practice getting to BSC. changes sheets 4x/day and states he is just barely managing all tasks as far as pt and housework and he seems overwhelmed during conversation. It sounds like one HH provider is in the home and pt con't to state OT, but unsure if this is the case. She states OT is helping to teach her to walk but they are not using AD and only using gait belt. W/c is narrow for pt's body girth. pushes pt to sink in kitchen and she stands so he can assist in washing her hair and he assists with sponge baths. Activities of Daily Living and IADL's Pt states that her requests that she not transfer to the BSC for uriantion and BM because of risk of being incontinent on the way to the [facility] [place] [place]. Therefore, pt has been having BM laying on her side on couch/bed. Pt states that her helps her with all aspects of ADLs. Social History Household Members spouse Living Arrangements House Number of Floors (Floors) One Floor Number of Stairs To Enter/Railing? No steps to enter Home Environment Standard Height Toilet,Walk in Shower,Built-In Shower Seat Home Equipment Front Wheel Walker,Manual Wheelchair,Bedside Commode, Hand Held Shower,Grab Bars In Shower Employment Status Retired Additional Social History Comment O2 as needed at home on 2L M2 OT-IP Current Condition Start: 02/28/24 16:06 Freq: Status: Active Protocol: Document 03/02/24 12:06 CGR (Rec: 02/28/24 16:27 CGR [id number]) Occupational Therapy Current Condition Current Condition Evaluation Date 02/28/24 Treatment Diagnosis UTI, constipation Diagnosis Onset Date 02/27/24 M3 OT- IP Subjective and Pain Start: 02/28/24 16:06 Freq: Status: Active Protocol: Document 03/02/24 12:06 CGR (Rec: 02/28/24 16:27 CGR [id number]) OT- Subjective Occupational Therapy Visit Type Type Initial Evaluation Visit Start Time 15:16 Visit Stop Time 15:45 Notes Pt's Cosme is present OT Pain Assessment Pain When Pain Assessed At Rest Pain Present Pain Present Denied Pain M4 OT- IP ADL's Start: 02/28/24 16:06 Freq: Status: Active Protocol: Document 03/02/24 12:06 CGR (Rec: 02/28/24 16:27 CGR [id number]) OT [id number] Comments OT Self-Feeding Comments not meal time OT ADL-Grooming Comments OT Grooming Comments pt declined, states that she performed earlier in the day. OT ADL-Oral Care Comments Oral Care Comments pt declined, states that she performed earlier in the day. OT ADL-Dressing General Eval Lower Body Dressing Ability Total Assistance Areas Needing Assistance Socks Comments OT Dressing Comments supine in bed, pt states that her performs at baseline. OT ADL-Toileting General Evaluation Toileting Ability Total Assistance Comments OT Toileting Comments Pt laying on side having BM earlier in day when OT attempted to see pt and required nursing assist in cleaning up. Per vocational nursing instructor, she offered the BSC and the patient declined. Pt with periwick for urination . OT ADL-Bathing Comments OT Bathing Comments not performed, discussed pt's home ability and pt states that she was told not to shower because of her wound and only do sponge baths till the wound is healed. M5 OT- IP IADL's Start: 02/28/24 16:06 Freq: Status: Active Protocol: Document 03/02/24 12:06 CGR (Rec: 02/28/24 16:27 CGR [id number]) OT-Instrumental Activities of Daily Living Deficits IADL Deficits Identified Deficits Home Safety Awareness Awareness of Need for Assistance at Home Decreased Awareness Ability to Problem Solve Emergency Unable to Problem Solve Situations Medication Management Medication Management Caregiver Administers Money Management Money Management Caregiver Provides Assistance Meal Preparation Meal Preparation Caregiver Provides Assist Apple Turner Apple Turner Caregiver Provides Assist Driving Driving Comments Pt does not drive. M6 OT- IP Functional Cognition Start: 02/28/24 16:06 Freq: Status: Active Protocol: Document 03/02/24 12:06 CGR (Rec: 02/28/24 16:27 CGR [id number]) Cognitive Factors Limiting Selfcare Function Cognitive Ability Level of Alertness Alert Patient Orientation Name,Age,Birthday,Month,Date, Year,Day of Week,Place, Situation Attention Span Ability Unable to Focus,Unable to Sustain Attention Ability to Follow Commands Able to Follow One Step Commands with Increased Time, Able to Follow One Step Commands with Repetition Cognitive Comments Cognitive Assessment Comments Pt would benefit from formal cog assessment. OT- Vision and Hearing OT- Hearing Assessment OT- Hearing Assessment WFL OT- Vision Assessment Visual Acuity WFL Visual Attentiveness WFL Occular Pursuits WFL Visual Convergence WFL M7 OT- IP Mobility and Balance Start: 02/28/24 16:06 Freq: Status: Active Protocol: Document 03/02/24 12:06 CGR (Rec: 02/28/24 16:27 CGR [id number]) OT- Bed Mobility Assessment Supine to Sit Supine to Sit Assist Standby Assistance,Head of Bed Elevated,Bedrails Scooting Scooting to Edge of Bed Standby Assistance,Head of Bed Elevated,Bedrails OT-Transfer Assessment Sit to and From Stand Sit to and from Stand Contact Guard Assistance,1 Person Assistance Transfers Transfer Ability Contact Guard Assistance,1 Person Assistance Technique Transfer Destination Bed,Chair Transfer Technique Stand Step Pivot Devices Transfer Assistive Devices Gait Belt,Front Wheeled Walker Comments Mobility Comments Pt tranfered from bed to chair with CGA. O2 stats decreased from 96 to 90 on room air with transfer. OT- Gait Assessment Comments Gait Ability Comments not performed OT- Balance Assessment Sitting Balance and Reactions Static Sitting Balance Ability Good Dynamic Sitting Balance Ability Good M8 OT- IP Objective Assessments Start: 02/28/24 16:06 Freq: Status: Active Protocol: Document 03/02/24 12:06 CGR (Rec: 02/28/24 16:27 CGR [id number]) OT Gross Range of Motion Upper Extremity Range of Motion Assessment Bilaterally Impaired ROM Impairments shld pain Of note, pt has different arthritic looking deformations to her hands. OT Strength Comments Strength Comments pt states pain with arm MMT, hands 4-/5 OT- Coordination Assessment Upper Extremity Finger to Nose Test Within Functional Limits Finger Tapping Test Within Functional Limits OT Sensation Assessment Edema Edema Absent M9 OT- IP Assessment and Plan Start: 02/28/24 16:06 Freq: Status: Active Protocol: Document 03/02/24 12:06 CGR (Rec: 02/28/24 16:27 CGR [id number]) OT Summary Assessment and Plan Potential Rehabilitation Potential Good Analytic Complexity at Evaluation High Summary OT Impairments Range of Motion,Strength, Balance,Functional Cognition, Functional Mobility,Grooming, Dressing,Toileting,Bathing, Toilet Transfers,Shower Transfers,Activity Tolerance Progress Towards Goals Progressing Toward Goals Assessment Summary Pt presents as a high complexity evaluation s/p admit for UTI. Pt appears confused at times as she answers questions and pt's also appears confused at times. They say pt has been at her PLOF for about 1 year which is minimally mobile and laying on the couch for BM. It appears that pt has some incontinence issues that are limiting her mobility but given her abilities today with this policy writer typist, it is likely that her reported baseline level is below what she can currently do and well below what she could do with increased therapy services. It appears that pt may be limited in her abilities because of her spouses chain saw driver tendencies. Pt will benefit from continued therapy services and likely would greatly benefit from SNF upon discharge. Goals Grooming Goal Independent Dressing Goal Independent,Tattoo Identifier,Sock Aid Toileting Goal Independent,Toilet Paper Aid Bathing Goal Minimal Assistance Toilet Transfer Goal Independent Shower Transfer Goal Minimal Assistance Days to Meet Goals 30 Frequency of Treatment Other frequency 5x a week Treatment Plan OT Treatment Plan ADL Training,Functional Cognition Training,Functional Mobility,Patient/Family Education,Discharge Planning Other Treatment Recommendations and Next SLUMS, shower if able Treatment Focus Discharge Recommendations OT Discharge Recommendations SNF Rehab Transportation Needs at Discharge Wheelchair/Cabulance
--- NOTE | 2024-02-28 17:23 | P.PN_ITS ---
Subjective Subjective Interval history: 78 F admitted with colitis or acute cystitis or combination. She presented with back pain which she reports is improved. She has been having pellet like stools for a couple months. Intermittently dark but also taking peptobismol for dyspepsia. Exam Vital Signs (past 8 hours): - 02/28/24 12:00 Temperature 97.8 F Pulse Rate 102 H Respiratory Rate 16 Blood Pressure 94/46 L Pulse Oximetry 98 Fraction of Inspired Oxygen 28 SaO2/FiO2 Ratio 353 Oxygen Delivery Method Nasal Cannula Oxygen Flow Rate 2 Narrative Exam Narrative: Gen: obese female NAD sitting upright ib bed. CV: RRR Pulm: No resp. distress Abd: S NT ND Ext: No edema Objective Labs 02/28/24 04:22 02/28/24 04:22 Labs: Laboratory Results - last 24 hr 02/27/24 02/27/24 02/28/24 18:00 18:20 04:22 WBC 19.1 H 16.5 H RBC 4.24 4.24 Hgb 11.8 L 12.0 Hct 37.0 37.3 MCV 87.3 87.9 MCH 27.8 28.4 MCHC 31.9 32.3 RDW 16.1 H 16.5 H Plt Count 261 263 Neut % (Auto) 78.7 H 80.5 H Lymph % (Auto) 10.2 L 9.0 L [place] % (Auto) 9.8 8.6 Eos % (Auto) 0.9 L 1.6 L Baso % (Auto) 0.4 0.3 Neut # (Auto) 81268 H 63294 H Lymph # (Auto) 1900 1500 [place] # (Auto) 1900 H 1400 H Eos # (Auto) 200 300 Baso # (Auto) 100 100 Sodium 135 L 135 L Potassium 3.8 4.1 Chloride 101 101 Carbon Dioxide 31 31 BUN 20 H 15 Creatinine 0.51 L 0.40 L Estimated GFR > 60 > 60 BUN/Creatinine Ratio 39.2 H 37.5 H Glucose 175 H 223 H Calcium 9.1 8.7 Total Bilirubin 0.7 AST 19 ALT 19 Alkaline Phosphatase 80 Total Protein 6.3 Albumin 3.1 L Globulin 3.2 Albumin/Globulin Ratio 1.0 Lipase 33 Urine RBC None seen Urine WBC 0-1/hpf Ur Squamous Epith Cells 0-1 /hpf Urine Bacteria Many (>30) H Ur Culture Indicated? Specimen cultured Vol Urine Centrifuged 10ml (spun) [facility] Medical History (Updated 02/27/24 @ 21:35 by Romain Rodriguez MD) Insulin dependent diabetes mellitus Dyslipidemia Hypertension Surgical History H/O bilateral salpingo-oophorectomy H/O: hysterectomy H/O hemorrhoidectomy Social History household members: spouse Smoking Status: Never smoker alcohol intake: current Assessment & Plan Assessment & Plan narrative: Colitis - Flagyl, Levaquin for 10-14 days - outpatient colonoscopy in several weeks for suspected mass or evaluation of possible stricture / underlying etiology. - she had several colonoscopies with polypectomies in the past - apart from worsening constipation and abdominal tenderness, w/o weight loss or GI bleed - regular diet okay for now. Acute cystitis - Levaquin as noted above will cover an acute cystitis. Impaired Mobility - WC-bound, PT assessment DM - continue home NPH BID and sliding scale. HTN - home Lisinopril and felodipine on hold CAD - Imdur, statin Chronic Hypoxemic respiratory Failure - restrictive lung disease, likely obesity hypoventilation - oxygen as needed to keep O2 89-96% while on supplemental therapy. Depression - Cymbalta Chronic Leg Wounds - wound care HLD - statin at home DVT prophylaxis - Lovenox If improving labs and no fever tomorrow can likely discharge home tomorrow if abdominal / back pain also continuing to improve. Time-Based Coding :: [TOTAL MINUTES] spent with patient and on the chart (including review of chart, obtaining history, exam, reviewing outside data, placing orders, documenting exam and treatment plan, and counseling patient) on [DATE]. Quality VTE Deep Vein Thrombosis/Pulmonary Embolism Present on Admission: No
[2024-02-28 20:00] VITALS: BP 135/65; PULSE 101; RESP 20; TEMP 36.5; O2SAT 94
[2024-02-28] MEDS: INSULIN NPH 100 UNIT/ML 10ML VIAL 25 UNIT SUBCUT (21:22)
[2024-02-28 23:57] VITALS: PULSE 96; O2SAT 99
[2024-02-29 05:15] LABS: Add Manual Diff / Slide Review NO; Basophils Absolute Auto 0 /uL (0-100); Basophils Percent Auto 0.4 % (0-2); Eosinophils Absolute Auto 400 /uL (0-450); Hematocrit 35.6 % (36-46); Hemoglobin 11.3 g/dL (12.0-16.0); Lymphocytes Absolute Auto 1700 /uL (1100-4500); Mean Corpuscular HGB Conc 31.7 % (30-36); Mean Corpuscular Hemoglobin 27.9 PG (26-34); Mean Corpuscular Volume 88.1 fL (80-100); Monocytes Absolute Auto 1000 /uL (0-900); Monocytes Percent Auto 8.2 % (3-14); Neutrophils Absolute Auto 8900 /uL (1500-7000); Neutrophils Percent Auto 74.4 % (50-75); Platelet Count 265 X10^3/uL (150-400); Red Blood Cell Count 4.05 X10^6/uL (4.0-5.2); Red Cell Distribution Width 16.5 % (11.6-14.8); White Blood Cell Count 11.9 X10^3/uL (4.5-11.0)
[2024-02-29 05:38] LABS: BUN Creatinine Ratio 27.9 (6-22); Blood Urea Nitrogen 12 mg/dL (7-17); Carbon Dioxide 31 mmol/L (22-32); Chloride 98 mmol/L (98-107); Estimated Glomerular Filt Rate > 60 mL/min (>60); Glucose 131 mg/dL (80-110); HEMOLYSIS < 15 (0-50); Magnesium 1.7 mg/dL (1.6-2.3); Potassium 3.9 mmol/L (3.4-5.1); Sodium 132 mmol/L (137-145)
[2024-02-29] MEDS: SODIUM CHLORIDE 0.9% FLUSH 10 ML IV ×3 (05:50→08:51)
[2024-02-29] MEDS: metroNIDAZOLE 500 MG/100 ML PIGGYBACK 100 MG IV ×2 (05:51→14:53)
[2024-02-29 08:49] VITALS: BP 136/60; PULSE 94; RESP 20; TEMP 36.3; O2SAT 93
[2024-02-29] MEDS: GABAPENTIN 300 MG CAPSULE 600 MG PO (08:50)
[2024-02-29] MEDS: DOCUSATE 100 MG CAPSULE 200 MG PO (08:50)
[2024-02-29] MEDS: DULOXETINE 30 MG CAPSULE 120 MG PO (08:50)
[2024-02-29] MEDS: ENOXAPARIN 40 MG/0.4 ML SYRINGE SUBCUT (08:50)
[2024-02-29] MEDS: ISOSORBIDE MONONITRATE ER 30 MG TABLET 120 MG PO (08:50)
[2024-02-29] MEDS: INSULIN NPH 100 UNIT/ML 10ML VIAL 25 UNIT SUBCUT (09:05)
--- NOTE | 2024-02-29 10:39 | PM.DS.1 ---
History of Present Illness History of Present Illness Date Patient Seen: 02/29/24 Time Patient Seen: 10:40 Chief complaint: constipated 2months, back px, fever 101-102F Narrative: Per admitting provider, 78 y/o with PMH of impaired mobility, wheelchair-bound, obesity, HTN, DM, HLD, presented with abdominal pain, fever with CT abdomen showing extensive colitis with significant lumen narrowing, UA with UTI, leukocytosis. BC, UC pending, recieved Rocephin and Flagyl in the ED. Not septic. Admitted to medicine for IV abx with colitis and UTI. Discharge Providers Provider Date of admission: 02/27/24 20:52 Discharge Date: 02/29/24 Consults: 02/27/24 21:13 Consult to Physical Therapy Evaluate & Treat Comment: Physician Instructions: Evaluate and Treat 02/28/24 11:27 Consult to Occupational Therapy Evaluate & Treat Comment: Physician Instructions: Evaluate and treat 02/28/24 13:53 Consult to Home Health Routine Comment: Reason For Exam: Home health upon discharge Discharge provider: Tda Foote DO Summary Hospital Course Discharge Diagnosis: Colitis Acute cystitis Impaired Mobility DM HTN CAD Chronic Hypoxemic respiratory Failure Depression Chronic Leg Wounds HLD Hospital Course: This is a 78-year-old female with a past medical history of diabetes, hypertension, CAD, chronic hypoxemic respiratory failure, depression, hyperlipidemia, impaired mobility and wheelchair-bound who presented with abdominal pain and fever. Urinalysis was also notable for a positive UA and urine cultures ultimately grew a E coli organism sensitive to levofloxacin. She was started empirically on levofloxacin and Flagyl for presumed colitis based on CT results. Her abdominal and back pain improved with antibiotic therapy and she had resolution of her leukocytosis. She complained of chronic constipation with ball like stools over the past few months. CT scan showed colonic thickening that could not exclude a mass. She was due for a colonoscopy as her last 1 was held up after a provider stated she could not have it due to cardiac risk, though previous left heart catheterization is noted to have been consistent with nonocclusive disease. I recommend outpatient follow-up with her GI provider for repeat colonoscopy after completion of her antibiotic therapy for exclusion of malignancy and further evaluation. She was discharged with another 10 days levofloxacin and metronidazole to complete her course for colitis, this will adequately cover her acute cystitis as well. She was also prescribed a prescription for a few days of pain medications. Time Spent with Patient Time spent: Greater than 30 minutes Exam Vital Signs (past 8 hours): - 02/29/24 08:49 Temperature 97.4 F L Pulse Rate 94 H Respiratory Rate 20 Blood Pressure 136/60 Pulse Oximetry 93 Oxygen Flow Rate 0 Fraction of Inspired Oxygen 24 SaO2/FiO2 Ratio 412 Oxygen Delivery Method Nasal Cannula Oxygen Flow Rate 0 Narrative Exam Narrative: Gen: obese female NAD sitting upright ib bed. CV: RRR Pulm: No resp. distress Abd: S NT ND Ext: No edema Objective Labs 02/29/24 04:35 02/29/24 04:35 Labs: Laboratory Results - last 24 hr 02/29/24 04:35 WBC 11.9 H RBC 4.05 Hgb 11.3 L Hct 35.6 L MCV 88.1 MCH 27.9 MCHC 31.7 RDW 16.5 H Plt Count 265 Neut % (Auto) 74.4 Lymph % (Auto) 14.0 L [place] % (Auto) 8.2 Eos % (Auto) 3.0 Baso % (Auto) 0.4 Neut # (Auto) 8900 H Lymph # (Auto) 1700 [place] # (Auto) 1000 H Eos # (Auto) 400 Baso # (Auto) 0 Sodium 132 L Potassium 3.9 Chloride 98 Carbon Dioxide 31 BUN 12 Creatinine 0.43 L Estimated GFR > 60 BUN/Creatinine Ratio 27.9 H Glucose 131 H Calcium 9.0 Magnesium 1.7 PFSH Medical History (Updated 02/27/24 @ 21:35 by Romain Rodriguez MD) Insulin dependent diabetes mellitus Dyslipidemia Hypertension Surgical History H/O bilateral salpingo-oophorectomy H/O: hysterectomy H/O hemorrhoidectomy Social History household members: spouse Smoking Status: Never smoker alcohol intake: current Discharge Plan Discharge Plan Patient Disposition: Home Health Service Provider Discharge Comment: You were admitted to the hospital with acute cystitis or possible colitis. Recommend pcp follow up as soon as possible for referral for colonoscopy for further evaluation. Discharge orders & Medications Prescriptions: New isosorbide mononitrate 30 mg Tablet Extended Release 24 Hr 120 mg PO DAILY Qty: 30 0RF oxycodone 5 mg Tablet 5 mg PO Q3H PRN (Reason: Pain, Severe (7-10)) 7 Days Qty: 30 0RF levofloxacin 750 mg tablet 750 mg PO DAILY 10 Days Qty: 10 0RF metronidazole 500 mg tablet 500 mg PO Q8H 10 Days Qty: 30 0RF Continued felodipine 10 MG tablet extended release 24 hr 1 tab PO DAILY Qty: 0 Patient Comments: strength not verified. Rx Instructions: in the evening insulin lispro [Humalog KwikPen Insulin] 100 unit/mL Insulin Pen 1 dose subcut DIRECTED Rx Instructions: 25 U in the AM, 18 U in the afternoon, and at dinner 10U if CBG >100, 15U >200, 20 U >300. Humulin N NPH Insulin KwikPen 100 unit/mL (3 mL) Insulin Pen 25 units subcut BID duloxetine 60 mg Capsule,Delayed Release(Dr/Ec) 120 mg PO DAILY Patient Comments: strength not verified. faxed pharmacy atorvastatin 40 mg tablet 40 mg PO DAILY gabapentin 300 mg capsule 600 mg PO DAILY albuterol sulfate 90 mcg/actuation HFA aerosol inhaler 2 puff inhalation Q4H lisinopril 20 mg tablet 40 mg PO DAILY Follow up/Referrals: Miscellaneous,Doctor, MD [Non-Staff] - Diet/Activity/Treatments Diet: Diet as Tolerated and Regular Activity: No restrictions Visit Report/Discharge Packet Stand Alone Forms: Patient Portal/API, Stroke Signs & Symptoms Quality VTE Deep Vein Thrombosis/Pulmonary Embolism Present on Admission: No
--- NOTE | 2024-02-29 10:55 | PT.IPTN ---
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 (02/27/24) Physical Therapy Treatment Note M2 PT-IP Current Condition Start: 02/28/24 08:42 Freq: NEEDED Status: Active Protocol: Document 02/28/24 10:21 MB (Rec: 02/28/24 11:31 MB [id number]) Physical Therapy Current Condition Current Condition Evaluation Date 02/28/24 Treatment Diagnosis UTI, constipation, right lower leg and buttocks wounds M3 PT-IP Subjective Start: 02/28/24 08:42 Freq: NEEDED Status: Active Protocol: Document 02/29/24 10:55 AB (Rec: 02/29/24 12:47 AB [id number]) Subjective Physical Therapy Visit Type Type Treatment Note Visit Start Time 10:55 Visit Stop Time 11:40 Number of HOOP RIVETING MACHINE OPERATOR HELPER Visits 0 Physical Therapy Visit Comments Patient Comments agreeable to do PT M4 PT-IP Mobility and Gait Start: 02/28/24 08:42 Freq: NEEDED Status: Active Protocol: Document 02/29/24 10:55 AB (Rec: 02/29/24 12:47 AB [id number]) PT-Bed Mobility Assessment Supine to Sit Supine to Sit Maximum Assistance,1 Person Assistance,Head of Bed Elevated,Bedrails PT-Transfer Assessment Sit to and From Stand Sit to and from Stand Contact Guard Assistance, Minimal Assistance,1 Person Assistance,Use of Upper Extremities Equipment Transfer Assistive Device Gait Belt,Front Wheeled Walker Orthotic/Prosthetic Devices or Brace: No Transfers Transfer Destination Chair Transfer Technique Stand Step Pivot Transfer Ability Level of Assist Contact Guard Assistance, Minimal Assistance,1 Person Assistance,Use of Upper Extremities Comments Mobility Comments pt supine in bed and agreeable to do PT. pt completed supine to sit max A and max cues with HOB elevated. pt stated that she sleeps on a recliner at home. pt able to sit on EOB SBA. pt stated that she reaches and stand pivots to the w/c to transfer when she is at home and does not use a FWW for transfers. pt completed stand pivot transfer to chair without AD CGA tomin A. pt rested. O2 sat : 94% with supplemental O2 on. pt stated that she walks with FWW with her HHPT. pt agreed to do ambulation. completed sit to stand from chair min A and ambulated ~ 10 ft using FWW min A to mod A and max cues for safety. pt sat back on chair. (+) SOB. O2 sat: 92 %. positioned pt on the chair. call light and table placed within reach. pt needing to be cleaned up and brief change. nurse informed. Gait Assessment Gait Gait Assistance Required: Minimum Assistance,Moderate Assistance Distance (Feet) 10 Able to Maintain Weight Bearing Status Yes During Gait Assistive Devices Assistive Device Gait Belt,Front Wheeled Walker Orthotic/Prosthetic Devices or Brace: No Gait Deviations General Gait Pattern Antalgic,Decreased Stride Length,Decreased Feet Clearance Factors Limiting Gait Function Factors Limiting Gait Function Decreased Activity Tolerance, Decreased Strength,Difficulty Following Directions,Limited Range of Motion,Pain,Poor Balance,Poor Safety Awareness, Respiratory Distress M5 PT-IP Objective Assessments Start: 02/28/24 08:42 Freq: NEEDED Status: Active Protocol: Document 02/28/24 10:21 MB (Rec: 02/28/24 11:31 MB [id number]) Orientation Orientation/Cognition Level of Alertness [place] Safety Awareness Decreased Safety Awareness Memory Description Short Term Impaired,Field Liability Generalist Impaired Comments A&O to self and pt has trouble answering history questions and , [place], often corrects Gross Range of Motion Upper Extremity ROM Impairments Defer to OT and order to be placed by Lower Extremity ROM Assessment Bilaterally Impaired Strength Lower Extremity Strength Assessment Bilaterally Impaired Comments Strength Comments B LE weakness, redness and skin breakdown on the right leg Coordination Assessment Gross Coordination Gross Coordination Impaired Assessment Coordination Comments Unable to reach feet to fully don shoes Sensation Assessment Comments Sensation Comments Pt denies paresthesias Muscle Tone Muscle Tone WNL Yes M6 PT-IP Treatment Start: 02/28/24 08:42 Freq: NEEDED Status: Active Protocol: Document 02/29/24 10:55 AB (Rec: 02/29/24 12:47 AB [id number]) Physical Therapy Treatment Education Education Provided Safety M7 PT-IP Assessment and Plan Start: 02/28/24 08:42 Freq: NEEDED Status: Active Protocol: Document 02/29/24 10:55 AB (Rec: 02/29/24 12:47 AB [id number]) PT Summary Assessment and Plan Potential Rehabilitation Potential Fair Summary Impairments Pain,ROM,Strength,Balance, Coordination,Sensation, Cognition,Bed Mobility, Transfers,Gait,Activity Tolerance Progress Towards Goals Slow Progress due to Medical Issues,Slow Progress due to Activity Tolerance Assessment Summary pt requiring CGA to min A with transfers without AD. pt lives with spouse and spouse has been assisting pt at home. pt may go home with assist and will benefit from HHPT. Goals Bed Mobility Goal Minimal Assistance Transfer Goal Standby Assistance Gait Goal Contact Guard Assistance,Front Wheel Walker Gait Distance 20 Days to Meet Goals 5 Frequency of Treatment Frequency Of Treatment Once a Day Treatment Plan Physical Therapy Treatment Plan Bed Mobility Training,Transfer Training,Gait Training, Therapeutic Exercise,Balance Retraining,Discharge Planning, Hot or Cold Pack,Neuromuscular Re-ed,Coordination Retraining ,Manual Therapy Recommendations To Nursing Amount of Assist Needed 1 Person Assist Discharge Recommendations PT Discharge Recommendations Home with 02/11 Assist Available,Home Health Transportation Needs at Discharge Private Vehicle
--- NOTE | 2024-02-29 11:12 | CM.DPNOTE ---
DCP Note SCREEN MAKING SUPERVISOR reviewed EMR. Per Dr. Foote in morning rounds, pt anticipated to dc home with HH today. Per RN report, pt back to her baseline in room. SCREEN MAKING SUPERVISOR met with pt in room. Confirms agreeable to home with [facility] resumption today. Spouse to transport home. Denies other needs or questions. SCREEN MAKING SUPERVISOR lvm with Theresa from [facility] concierge receptionist to notify of pt's dc today. Emailed Theresa copy of dc sum draft. f2f and order were previously sent. P: home with [facility] today. Spouse to transport. CM team will continue to follow as needed BEENA Hilton
[2024-02-29] MEDS: INSULIN LISPRO 100 UNIT/ML 3ML VIAL SUBCUT (12:24)
--- NOTE | 2024-02-29 12:24 | OT.IP.TRT ---
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 (02/27/24) Occupational Therapy Treatment Note M2 OT-IP Current Condition Start: 02/28/24 16:06 Freq: Status: Active Protocol: Document 02/28/24 16:07 CGR (Rec: 02/28/24 16:27 CGR [id number]) Occupational Therapy Current Condition Current Condition Evaluation Date 02/28/24 Treatment Diagnosis UTI, constipation Diagnosis Onset Date 02/27/24 M3 OT- IP Subjective and Pain Start: 02/28/24 16:06 Freq: Status: Active Protocol: Document 02/29/24 12:30 [facility] (Rec: 02/29/24 12:39 [facility] [id number]) OT- Subjective Occupational Therapy Visit Type Type Treatment Note Visit Start Time 12:00 Visit Stop Time 12:24 Occupational Therapy Visit Comments Patient Comments Pt not wanting to get up at this time. Patient/Caregiver Goals TO go home. OT Pain Assessment Pain When Pain Assessed At Rest Pain Present Pain Present Denied Pain M4 OT- IP ADL's Start: 02/28/24 16:06 Freq: Status: Active Protocol: Document 02/28/24 16:07 CGR (Rec: 02/28/24 16:27 CGR [id number]) OT [id number] Comments OT Self-Feeding Comments not meal time OT ADL-Grooming Comments OT Grooming Comments pt declined, states that she performed earlier in the day. OT ADL-Oral Care Comments Oral Care Comments pt declined, states that she performed earlier in the day. OT ADL-Dressing General Eval Lower Body Dressing Ability Total Assistance Areas Needing Assistance Socks Comments OT Dressing Comments supine in bed, pt states that her performs at baseline. OT ADL-Toileting General Evaluation Toileting Ability Total Assistance Comments OT Toileting Comments Pt laying on side having BM earlier in day when OT attempted to see pt and required nursing assist in cleaning up. Per nursing resident, she offered the BSC and the patient declined. Pt with [place]ack for urination . OT ADL-Bathing Comments OT Bathing Comments not performed, discussed pt's home ability and pt states that she was told not to shower because of her wound and only do sponge baths till the wound is healed. M5 OT- IP IADL's Start: 02/28/24 16:06 Freq: Status: Active Protocol: Document 02/28/24 16:07 CGR (Rec: 02/28/24 16:27 CGR [id number]) OT-Instrumental Activities of Daily Living Deficits IADL Deficits Identified Deficits Home Safety Awareness Awareness of Need for Assistance at Home Decreased Awareness Ability to Problem Solve Emergency Unable to Problem Solve Situations Medication Management Medication Management Caregiver Administers Money Management Money Management Caregiver Provides Assistance Meal Preparation Meal Preparation Caregiver Provides Assist Board Layer Board Layer Caregiver Provides Assist Driving Driving Comments Pt does not drive. M6 OT- IP Functional Cognition Start: 02/28/24 16:06 Freq: Status: Active Protocol: Document 02/29/24 12:30 [facility] (Rec: 02/29/24 12:39 [facility] [id number]) Cognitive Factors Limiting Selfcare Function Cognitive Tests SLUMS Pt scored 20/30 which implies borderline dementia versus cognitive deficits. Pt not at her baseline and feels that she is not thinking as well as prior. Pt did not know the day of week, able to recall 4/ 5 objects after time passed, not able to draw the numbers of the clock symmetrically and draw the hour hand correctly after time given, and pt able to answer 2/4 questions right after paragraph read. Pt suggested to be sure to double check if doing the bills/meds and to have her assist. Pt having difficulty to focus at time during SLUMS. Cognitive Comments Cognitive Assessment Comments 2030 on the SLUMS M7 OT- IP Mobility and Balance Start: 02/28/24 16:06 Freq: Status: Active Protocol: Document 02/28/24 16:07 CGR (Rec: 02/28/24 16:27 CGR [id number]) OT- Bed Mobility Assessment Supine to Sit Supine to Sit Assist Standby Assistance,Head of Bed Elevated,Bedrails Scooting Scooting to Edge of Bed Standby Assistance,Head of Bed Elevated,Bedrails OT-Transfer Assessment Sit to and From Stand Sit to and from Stand Contact Guard Assistance,1 Person Assistance Transfers Transfer Ability Contact Guard Assistance,1 Person Assistance Technique Transfer Destination Bed,Chair Transfer Technique Stand Step Pivot Devices Transfer Assistive Devices Gait Belt,Front Wheeled Walker Comments Mobility Comments Pt tranfered from bed to chair with CGA. O2 stats decreased from 96 to 90 on room air with transfer. OT- Gait Assessment Comments Gait Ability Comments not performed OT- Balance Assessment Sitting Balance and Reactions Static Sitting Balance Ability Good Dynamic Sitting Balance Ability Good M8 OT- IP Objective Assessments Start: 02/28/24 16:06 Freq: Status: Active Protocol: Document 02/28/24 16:07 CGR (Rec: 02/28/24 16:27 CGR [id number]) OT Gross Range of Motion Upper Extremity Range of Motion Assessment Bilaterally Impaired ROM Impairments shld pain Of note, pt has different arthritic looking deformations to her hands. OT Strength Comments Strength Comments pt states pain with arm MMT, hands 4-/5 OT- Coordination Assessment Upper Extremity Finger to Nose Test Within Functional Limits Finger Tapping Test Within Functional Limits OT Sensation Assessment Edema Edema Absent M9 OT- IP Assessment and Plan Start: 02/28/24 16:06 Freq: Status: Active Protocol: Document 02/29/24 12:30 CCC (Rec: 02/29/24 12:39 CCC [id number]) OT Summary Assessment and Plan Potential Rehabilitation Potential Good Analytic Complexity at Evaluation High Summary OT Impairments Range of Motion,Strength, Balance,Functional Cognition, Functional Mobility,Grooming, Dressing,Toileting,Bathing, Toilet Transfers,Shower Transfers,Activity Tolerance Progress Towards Goals Progressing Toward Goals Assessment Summary Pt looking to go home with home health at this time. Pt scored 20/30 on the SLUMS and realizes that she is not thinking as well as usual. Suggested pt double check when doing bills/meds and also have her assist. Goals Grooming Goal Independent Dressing Goal Independent,Product Marketing Manager,Sock Aid Toileting Goal Independent,Toilet Paper Aid Bathing Goal Minimal Assistance Toilet Transfer Goal Independent Shower Transfer Goal Minimal Assistance Days to Meet Goals 7 Frequency of Treatment Other frequency 5x a week Treatment Plan OT Treatment Plan ADL Training,Functional Cognition Training,Functional Mobility,Patient/Family Education,Discharge Planning Discharge Recommendations OT Discharge Recommendations Home with / Assist Available,Home Health Transportation Needs at Discharge Private Vehicle
--- NOTE | 2024-02-29 18:46 | PC.NURSE ---
Discharge Note Patient A&O, VSS, RA, no complaints of pain/discomfort. Discharge packet reviewed with patient, all questions/concerns addressed. PIV discontinued. Patient able to dress self and pack all belongings with husbands assistance. Patient taken down via wheelchair to POV.
== END 2024-02-29 18:30 | disposition home health service (06) | DRG 392 ==
LOC: ED 20:30 → AC 20:54
PROVIDERS: Internal Medicine; Student in an Organized Health Care Education/Training Program; Admitting Provider Internal Medicine; Emergency Provider Emergency Medicine; Family Provider Family Medicine; Referring Provider Emergency Medicine; Visit Provider Internal Medicine
DX: K52.9 Noninfective gastroenteritis and colitis, unspecified (principal); J96.11 Chronic respiratory failure with hypoxia; Z68.41 Body mass index [BMI] 40.0-44.9, adult; N30.00 Acute cystitis without hematuria; Z74.09 Other reduced mobility; E11.9 Type 2 diabetes mellitus without complications; M47.816 Spondylosis without myelopathy or radiculopathy, lumbar region; I10 Essential (primary) hypertension; E78.5 Hyperlipidemia, unspecified; I25.10 Atherosclerotic heart disease of native coronary artery without angina pectoris; F32.A Depression, unspecified; B96.20 Unspecified Escherichia coli [E. coli] as the cause of diseases classified elsewhere; K63.89 Other specified diseases of intestine; E66.9 Obesity, unspecified; S80.922A Unspecified superficial injury of left lower leg, initial encounter; S80.921A Unspecified superficial injury of right lower leg, initial encounter; X58.XXXA Exposure to other specified factors, initial encounter; Z79.4 Long term (current) use of insulin; Z99.3 Dependence on wheelchair
CPT/HCPCS: 36415; 51701; 74177; 80048; 80053; 81003; 81015; 82962; 83690; 83735; 85025; 87077; 87086; 87186; 94762; 96365; 96367; 96375; 97110; 97129; 97130; 97161; 97167; 97530; 97535; 99284; 99285; J0696; J1171; J1650; J1815; J2405; Q9967